=== PATIENT | female | born 1955 | race Caucasian/White ===

== ENCOUNTER → 2016-03-14 | Outpatient (CLI) | payer OTHER ==
[~2016-03-14] MED LIST: ALBU1AER9 INH; ALPR1TAB3 PO; ANT25 PO; ARFO15NE NEB; ATOR-24 PO; BENZ100C84 PO; CARV6.25 PO; CHOL100010 PO; CYCL10TA6 PO; DOXY100C76 PO; EFF75 PO; EFFSR150 PO; FLX10 PO; GABA-113 PO; IPRASOL34 INH; IPRASOL4 INH; LSX/40 PO; MCRK20 PO; MRPSR/15 PO; OXGN; PANT40TA PO; POTA20TA16 PO; PRED10TA PO; SNG10 PO; SPIR25TA PO; SYMIN/8045 INH; SYMIN160 INH; TRAM-10 PO; VNTHFA/IN INH; WARF-246 PO
[2016-03-14 12:33] LABS: BLOOD UREA NITROGEN 13 mg/dl (7-18); BUN/CREATININE RATIO 16.4 (10-20); CALCIUM 9.2 mg/dl (8.5-10.1); CARBON DIOXIDE 32 mmol/L (21-32); CHLORIDE 100 mmol/L (98-107); CREATININE 0.81 mg/dl (0.60-1.20); GLUCOSE 102 mg/dl (70-99); POTASSIUM 4.1 mmol/L (3.5-5.1); SODIUM 139 mmol/L (136-145)
== END | disposition home or self-care (01) ==
LOC: C.LABPVFM 08:59
PROVIDERS: ATTEND Family Medicine
DX: F32.9 Major depressive disorder, single episode, unspecified (principal); I10 Essential (primary) hypertension; M54.9 Dorsalgia, unspecified; E55.9 Vitamin D deficiency, unspecified

== ENCOUNTER → 2016-04-05 | Outpatient (CLI) | payer OTHER ==
[~2016-04-05] MED LIST changes: -CYCL10TA6 PO; -EFFSR150 PO; -IPRASOL4 INH; -POTA20TA16 PO; -SNG10 PO; -SYMIN160 INH; -VNTHFA/IN INH
== END ==
LOC: C.PAIN 12:24

== ENCOUNTER → 2016-08-19 | Outpatient (CLI) | payer OTHER ==
[~2016-08-19] MED LIST changes: +CYCL10TA6 PO; +EFFSR150 PO; +IPRASOL4 INH; +POTA20TA16 PO; +SNG10 PO; +SYMIN160 INH; +VNTHFA/IN INH
== END ==
LOC: C.PAIN 08:58

== ENCOUNTER → 2016-09-09 | Outpatient (CLI) | payer OTHER ==
[~2016-09-09] MED LIST changes: -CYCL10TA6 PO; -EFFSR150 PO; -IPRASOL4 INH; -POTA20TA16 PO; -SNG10 PO; -SYMIN160 INH; -VNTHFA/IN INH
== END ==
LOC: C.PAIN 12:47

== ENCOUNTER → 2016-11-28 | Outpatient (CLI) | payer OTHER ==
[~2016-11-28] MED LIST changes: -PRED10TA PO; -WARF-246 PO
== END | disposition home or self-care (01) ==
LOC: C.LABPVFM 08:43
PROVIDERS: ATTEND Nurse Practitioner
DX: E78.00 Pure hypercholesterolemia, unspecified (principal); E55.9 Vitamin D deficiency, unspecified

== ENCOUNTER → 2017-02-03 | Outpatient (CLI) | payer OTHER ==
[~2017-02-03] MED LIST changes: -ALBU1AER9 INH; -BENZ100C84 PO; -CARV6.25 PO; +CYCL10TA6 PO; -DOXY100C76 PO; -EFF75 PO; +EFFSR150 PO; -FLX10 PO; -IPRASOL34 INH; +IPRASOL4 INH; -MCRK20 PO; +POTA20TA16 PO; +SNG10 PO; -SYMIN/8045 INH; +SYMIN160 INH; +VNTHFA/IN INH
== END | disposition home or self-care (01) ==
LOC: C.MAMM 09:42
PROVIDERS: ATTEND Nurse Practitioner
DX: Z00.01 Encounter for general adult medical examination with abnormal findings (principal); M85.839 Other specified disorders of bone density and structure, unspecified forearm

== ENCOUNTER → 2017-02-03 | Outpatient (CLI) | payer OTHER ==
--- NOTE | 2017-02-06 07:49 | MAMMOGRAPHY REPORT ---
BILATERAL DIGITAL SCREENING MAMMOGRAM WITH CAD: 02/03/2017 CLINICAL HISTORY: Routine screening. Patient has no complaints. TECHNIQUE: Bilateral CC, MLO and left cleavage views were obtained. Current study was also evaluate d with a Computer Aided Detection (CAD) system. COMPARISON: Comparison is made to exams dated: 05/05/2015 mammogram, 05/05/2015 stereotactic biopsy, ultrasound, 04/24/2015 mammogram, and 04/17/2015 mammogram - [facility]. BREAST COMPOSITION: There are scattered areas of fibroglandular density in both breasts. FINDINGS: There is a stable dumbbell shaped biopsy marker with in a focal asymmetry with associated c alcification in the upper inner middle one third of the left breast. The asymmetry is unchanged in s ize and appearance comparing to the 04/17/2015 mammograms, and this represents the area of prior ster eotactic biopsy which yielded benign pathology. No new suspicious mass, architectural distortion or cluster of microcalcifications is seen. IMPRESSION: ACR BI-RADS CATEGORY 1: NEGATIVE There is no mammographic evidence of malignancy. A 1 year screening mammogram is recommended. The pa tient will receive written notification of the results. Approximately 10% of breast cancers are not detected with mammography. A negative mammographic report should not delay biopsy if a clinically suggestive mass is present. Yisel Pennington M.D. ay/:02/04/2017 07:10:58 Auto Phone Installer: Carole IYER)(Milana), [facility] letter sent: Normal 1/2 BI-RADS Code: ACR BI-RADS Category 1: Negative
== END | disposition home or self-care (01) ==
LOC: C.MAMM 09:42
PROVIDERS: ATTEND Nurse Practitioner
DX: Z12.31 Encounter for screening mammogram for malignant neoplasm of breast (principal)

== ENCOUNTER 2019-09-06 09:07 | Observation (INO) ==
--- NOTE | 2019-08-27 16:06 | PAT Medication Instructions ---
Medication Instructions Date of Service August 27, 2019 Home Medications Medication Instructions Recorded albuterol sulfate 90 mcg/actuation 2 puff INHALATION Q6H PRN #18 gm 08/13/18 aerosol inhaler cyclobenzaprine 10 mg tablet See Rx Instructions .ROUTE 02/04/19 .COMPLEX #90 tablet spironolactone 25 mg tablet See Rx Instructions .ROUTE 02/04/19 .COMPLEX #30 tablet venlafaxine 150 mg See Rx Instructions .ROUTE 02/04/19 capsule,extended release 24 hr .COMPLEX #30 capsule gabapentin 300 mg capsule See Rx Instructions .ROUTE 03/08/19 .COMPLEX #180 capsule montelukast 10 mg tablet 10 mg PO QPM #90 tab 04/04/19 diclofenac sodium 1 % topical gel 2 g TOPICAL QID PRN #300 gm 04/15/19 celecoxib 200 mg capsule See Rx Instructions .ROUTE 04/18/19 .COMPLEX #60 cap carvedilol 6.25 mg tablet 6.25 mg PO BID #60 tab 05/02/19 buspirone 10 mg tablet See Rx Instructions .ROUTE 05/16/19 .COMPLEX #60 tablet hydrocodone 5 mg-acetaminophen 325 1 tab PO Q8H PRN #30 tab 08/06/19 mg tablet tramadol 50 mg tablet 50 - 100 mg PO HS #60 tab 08/26/19 albuterol sulfate 90 mcg/actuation aerosol inhaler 2 puff INHALATION Q6H PRN budesonide-formoterol HFA 160 mcg-4.5 mcg/actuation aerosol inhaler 2 puff INHALATION BID ipratropium 0.5 mg-albuterol 3 mg (2.5 mg base)/3 mL nebulization soln 3 ml INHALATION QID PRN meclizine 25 mg tablet 25 mg PO TID PRN cyclobenzaprine 10 mg tablet See Rx Instructions .ROUTE .COMPLEX spironolactone 25 mg tablet See Rx Instructions .ROUTE .COMPLEX venlafaxine 150 mg capsule,extended release 24 hr See Rx Instructions .ROUTE .COMPLEX gabapentin 300 mg capsule See Rx Instructions .ROUTE .COMPLEX montelukast 10 mg tablet 10 mg PO QPM diclofenac sodium 1 % topical gel 2 g TOPICAL QID PRN celecoxib 200 mg capsule See Rx Instructions .ROUTE .COMPLEX carvedilol 6.25 mg tablet 6.25 mg PO BID buspirone 10 mg tablet See Rx Instructions .ROUTE .COMPLEX hydrocodone 5 mg-acetaminophen 325 mg tablet 1 tab PO Q8H PRN atorvastatin 40 mg PO HS cholecalciferol (vitamin D3) 4,000 units PO QAM furosemide 60 mg PO QAM lisinopril 10 mg PO QAM mirtazapine 30 mg PO HS pantoprazole [Protonix] 40 mg PO QAM potassium chloride [Klor-Con M20] 20 meq PO QAM tramadol 50 mg tablet 50 - 100 mg PO HS ASK your surgeon for instructions celecoxib 200 mg capsule See Rx Instructions .ROUTE .COMPLEX STOP taking 24 hours before surgery diclofenac sodium 1 % topical gel 2 g TOPICAL QID PRN DO NOT take the morning of surgery cyclobenzaprine 10 mg tablet See Rx Instructions .ROUTE .COMPLEX spironolactone 25 mg tablet See Rx Instructions .ROUTE .COMPLEX cholecalciferol (vitamin D3) 4,000 units PO QAM furosemide 60 mg PO QAM lisinopril 10 mg PO QAM potassium chloride [Klor-Con M20] 20 meq PO QAM Take morning of surgery With a small sip of water, OTHERWISE NOTHING TO EAT OR DRINK AFTER MIDNIGHT: albuterol sulfate 90 mcg/actuation aerosol inhaler 2 puff INHALATION Q6H PRN (use if needed; please bring with you to hospital day of surgery if possible) budesonide-formoterol HFA 160 mcg-4.5 mcg/actuation aerosol inhaler 2 puff INHALATION BID ipratropium 0.5 mg-albuterol 3 mg (2.5 mg base)/3 mL nebulization soln 3 ml INHALATION QID PRN (if needed) meclizine 25 mg tablet 25 mg PO TID PRN (if needed) venlafaxine 150 mg capsule,extended release 24 hr See Rx Instructions .ROUTE .COMPLEX gabapentin 300 mg capsule See Rx Instructions .ROUTE .COMPLEX carvedilol 6.25 mg tablet 6.25 mg PO BID buspirone 10 mg tablet See Rx Instructions .ROUTE .COMPLEX (if needed) hydrocodone 5 mg-acetaminophen 325 mg tablet 1 tab PO Q8H PRN (okay to take up to 4 hours prior to surgery if needed) pantoprazole [Protonix] 40 mg PO QAM Take evening before surgery albuterol sulfate 90 mcg/actuation aerosol inhaler 2 puff INHALATION Q6H PRN (if needed) budesonide-formoterol HFA 160 mcg-4.5 mcg/actuation aerosol inhaler 2 puff INHALATION BID ipratropium 0.5 mg-albuterol 3 mg (2.5 mg base)/3 mL nebulization soln 3 ml INHALATION QID PRN (if needed) meclizine 25 mg tablet 25 mg PO TID PRN (if needed) cyclobenzaprine 10 mg tablet See Rx Instructions .ROUTE .COMPLEX (if needed) gabapentin 300 mg capsule See Rx Instructions .ROUTE .COMPLEX montelukast 10 mg tablet 10 mg PO QPM carvedilol 6.25 mg tablet 6.25 mg PO BID buspirone 10 mg tablet See Rx Instructions .ROUTE .COMPLEX (if needed) hydrocodone 5 mg-acetaminophen 325 mg tablet 1 tab PO Q8H PRN (if needed) atorvastatin 40 mg PO HS mirtazapine 30 mg PO HS tramadol 50 mg tablet 50 - 100 mg PO HS Other Notes If you have any questions please call us at [phone] or [phone] or [phone] or [phone]
[2019-08-28 13:32] LABS: Basophils # (auto) 0.03 K/uL (0-0.2); Basophils % (auto) 0.4 %; Eosinophils % (auto) 1.4 %; Hematocrit (blood only) 44.1 % (37-47); Hemoglobin 14.2 g/dL (12.0-16.0); Immature Granulocytes # (auto) 0.01 K/uL (0.00-0.02); Immature Granulocytes % (auto) 0.1 %; Lymphocytes % (auto) 21.6 %; Mean Corpuscular Hemoglobin 31.3 pg (25-34); Mean Corpuscular Hgb Conc 32.2 g/dL (32-36); Mean Corpuscular Volume 97.4 fL (80-100); Mean Platelet Volume 10.2 fL (7.4-10.4); Monocytes # (auto) 0.56 K/uL (0.11-0.59); Monocytes % (auto) 8.1 %; Neutrophils # (auto) 4.74 K/uL (1.4-6.5); Neutrophils % (auto) 68.4 %; Platelet Count 261 K/uL (130-400); RDW Coefficient of Variation 12.6 % (11.5-14.5); RDW Standard Deviation 44.7 fL (36.4-46.3); Red Blood Count 4.53 M/uL (4.2-5.4); White Blood Count 6.94 K/uL (4.8-10.8)
--- NOTE | 2019-08-28 13:44 | Anesthesiology Consultation ---
Date of Service August 28, 2019 Assessment & Plan (1) Encounter for pre-operative examination: Chart Review Chart Review: Acceptable Risk for Surgery (pending Covid testing) and Patient seen in Pre Admission Testing *Per PAT appt on 08/28/19, no known travel to endemic areas. Pt aware of Covid testing three days prior to surgery. Eduated importance of self quarantining, social distancings and wearing a mask if needs to go out in public for both pat ient and household members Left PATTIE 12/19/17= Done under GA- grade 1 view with MAC #3. ETT 7.5. Seen by pulm 08/21/19= aware of upcoming hip surgery. Breathing stable at time of appt. Teaching & Discussion Pre-Anesthesia Teaching/Discussion Notes: Instructed NPO after midnight before surgery,except medications with 15 cc of water. Medication instructions provided according to the PAT guidelines. History Surgery Operation Date: 09/06/19 10:40 Proposed Procedures p Right Lateral Total Hip Arthroplasty - Oscar Leon, Height/Weight Height: 5 ft 2.25 in Weight: 127.2 kg Allergies Allergy/AdvReac Type Severity Reaction Status Date / Time amoxicillin Allergy Mild RASH Verified 08/28/19 11:53 rofecoxib Allergy Unknown Unknown Verified 08/28/19 11:53 aspirin AdvReac Unknown PER Verified 08/28/19 11:53 PATIENT, LISTED B/C SHE HAS ASTHMA-CAN USE W/O ISSUES NO simvastatin AdvReac Unknown Muscle Pain Verified 08/28/19 11:53 Medications Home Medications Medication Instructions Recorded Confirmed Last Taken albuterol sulfate 90 mcg/actuation 2 puff INHALATION Q6H PRN #18 gm 08/13/18 08/28/19 Unknown aerosol inhaler budesonide-formoterol HFA 160 2 puff INHALATION BID 08/13/18 08/28/19 Unknown mcg-4.5 mcg/actuation aerosol inhaler ipratropium 0.5 mg-albuterol 3 mg 3 ml INHALATION QID PRN #2 ml 08/13/18 08/28/19 Unknown (2.5 mg base)/3 mL nebulization soln meclizine 25 mg tablet 25 mg PO TID PRN tab 08/13/18 08/28/19 Unknown cyclobenzaprine 10 mg tablet See Rx Instructions .ROUTE 02/04/19 08/28/19 Unknown .COMPLEX #90 tablet spironolactone 25 mg tablet See Rx Instructions .ROUTE 02/04/19 08/28/19 Unknown .COMPLEX #30 tablet venlafaxine 150 mg See Rx Instructions .ROUTE 02/04/19 08/28/19 Unknown capsule,extended release 24 hr .COMPLEX #30 capsule Oxygen Home #1 ea 02/20/19 08/28/19 Unknown gabapentin 300 mg capsule See Rx Instructions .ROUTE 03/08/19 08/28/19 Unknown .COMPLEX #180 capsule montelukast 10 mg tablet 10 mg PO QPM #90 tab 04/04/19 08/28/19 Unknown diclofenac sodium 1 % topical gel 2 g TOPICAL QID PRN #300 gm 04/15/19 08/28/19 Unknown celecoxib 200 mg capsule See Rx Instructions .ROUTE 04/18/19 08/28/19 Unknown .COMPLEX #60 cap carvedilol 6.25 mg tablet 6.25 mg PO BID #60 tab 05/02/19 08/28/19 Unknown buspirone 10 mg tablet See Rx Instructions .ROUTE 05/16/19 08/28/19 Unknown .COMPLEX #60 tablet hydrocodone 5 mg-acetaminophen 325 1 tab PO Q8H PRN #30 tab 08/06/19 08/28/19 Unknown mg tablet atorvastatin 40 mg PO HS 08/21/19 08/28/19 Unknown cholecalciferol (vitamin D3) 4,000 units PO QAM 08/21/19 08/28/19 Unknown furosemide 60 mg PO QAM 08/21/19 08/28/19 Unknown lisinopril 10 mg PO QAM 08/21/19 08/28/19 Unknown mirtazapine 30 mg PO HS 08/21/19 08/28/19 Unknown pantoprazole [Protonix] 40 mg PO QAM 08/21/19 08/28/19 Unknown potassium chloride [Klor-Con M20] 20 meq PO QAM 08/21/19 08/28/19 Unknown tramadol 50 mg tablet 50 - 100 mg PO HS #60 tab 08/26/19 08/28/19 Unknown Past Medical History Medical History (Updated 08/29/19 @ 11:08 by Karolyn Mccollum PA-C) Asthma STABLE Chronic obstructive pulmonary disease STABLE; ON O2 2L PRN ACTIVITY*-F/U DR CELIA JACOBS Congestive heart failure REMOTE-HX- STABLE AND CONTROLLED Depression GERD (gastroesophageal reflux disease) CONTROLLED Hiatal hernia Hypercholesteremia Hypertension Migraine HX Morbid obesity Pulmonary embolism ~2012- on AC x 1 year - then d/'edwardo - no issues since Sleep apnea CPAP, stopped 2017, couldn't war mask d/t anxiety SOBOE (shortness of breath on exertion) CHRONIC/MILD AND STABLE Exercise / Class Metabolic Activity III < 4 Walking/Shop/Light housework (ONE FLIGHT STAIRS- SOB BUT NO CHEST PAIN ) Past Family History Family History Father Prostate cancer Myocardial infarction Diabetes Mother Myocardial infarction Family/Other Heart disease Hypertension Other Family history non-contributory Denies family history of Ovarian cancer Breast cancer Colorectal cancer Past Surgical History Surgical History (Updated 08/29/19 @ 11:10 by Karolyn Mccollum PA-C) H/O foot surgery History of bilateral carpal tunnel release History of esophagogastroduodenoscopy (EGD) History of tonsillectomy and adenoidectomy History of total left hip replacement (~2017) Previous back surgery S/P insertion of spinal cord stimulator 2/2 LBP/RADICULOPATHY; PATIENT ADVISED TO BRING REMOTE AM DOS (OR NOTIFIED) Status post correction of deviated nasal septum Status post insertion of spinal cord stimulator Past Anesthesia History No Hx of Anesthesia Complications and No Family Hx of Anesthesia Complications History of PONV No Hx of Motion Sickness and History of PONV (ONE EPISODE AFTER SPINAL CORD STIMULATOR ) Social History Smoking Status: Never smoker Do You Dip or Chew Tobacco: No Hx Alcohol Use: Yes Alcohol type: beer alcohol intake frequency: holidays/special occasions only Hx Substance Use: No Review of Systems Possible blood transfusion after last hip replacement Patient denies chest pain, shortness of breath, cough, wheezing, palpitations. No hx of seizures, stroke, RI. Physical Exam Vital Signs VITALS BP 112/62 P 64 TEMP 98.5 SP02 94% RESP 16 Constitutional + morbidly obese; no acute distress ENMT Mouth: no TMJ clicking Thyromental Distance: > or= 3.5 Finger Breadths (3.5) Mallampati Class: II Missing molars Neck + short neck, + thick neck and + limited neck extension (mild ) Respiratory normal respiratory effort; no respiratory distress Auscultation: lungs clear to auscultation bilaterally; no wheezes Cardiovascular Rate/Rhythm: regular rate and regular rhythm Heart Sounds: no murmur Vessels: no carotid bruit Musculoskeletal Spine: no pain with cervical ROM Neurologic moves all extremities Psychiatric Orientation: alert Testing Laboratory Results 08/28/19 13:17 08/28/19 13:17 PT 10.2 Seconds (9.0-12.0) 08/28/19 13:17 INR 1.0 (0.9-1.1) 08/28/19 13:17 APTT 25.8 Seconds (21.0-31.0) 08/28/19 13:17 Blood Type A Positive 08/28/19 13:17 Antibody Screen NEGATIVE 08/28/19 13:17 Electrocardiogram Date: 01/07/19 Findings: + SB @ (59) Chest X-Ray Date: 08/28/19 Findings: + NAD and + cardiomegaly (mild/stable) Echocardiogram Date: 09/17/15 LVEF 60%. LVD with mild cLVH. No RWMA. Grade 1 Diastolic dysfunction. No significant valvular disease. RVSP elevated 30-40mmhg.
[2019-08-28 13:49] LABS: Partial Thromboplastin Ratio 0.9; Partial Thromboplastin Time 25.8 Seconds (21.0-31.0); Prothrombin Time 10.2 Seconds (9.0-12.0)
--- NOTE | 2019-08-28 14:15 | XRay Report ---
XR chest Pre-admission PA/Lat CLINICAL HISTORY: pat preoperative evaluation COMPARISON STUDY: 01/19/2017 FINDINGS: Mild stable cardiomegaly. Mild stimulator in the low thoracic region unchanged in location. Lungs are considered clear. There are no focal infiltrative changes. IMPRESSION: No acute process. ACT 112: Negative or not required by law. The above report was generated using voice recognition software. It may contain grammatical, syntax or spelling errors. Electronically signed by: Julian Veliz M.D. 08/28/2019 2:14 PM
[2019-08-28 15:59] LABS: BUN Creatinine Ratio 18.3 (10-20); Creatinine Clr Calc Pharmacy 85.6 ml/min; Est GFR (African American) 85.2; Est GFR (Non-African American) 73.5; Potassium 4.1 mmol/L (3.5-5.1)
--- NOTE | 2019-09-05 06:52 | History & Physical Report ---
Date of Service September 05, 2019 Assessment & Plan (1) History of total left hip replacement: We will proceed with a right total hip arthroplasty. Postoperatively she will be kept overnight in the hospital for postoperative medical management. She plans to use energy physical therapy upon discharge. During her last stay she required a discharge to [facility] rehab. We will see how she does. Oralia is a high risk for joint replacement surgery. Her BMI is 50.9 which is a major comorbidity. Present on Admission?: Yes History of Present Illness Chief Complaint: Primary osteoarthritis of the right hip Primary Care Provider: SARAH Moulton Oralia is a pleasant 64-year-old female who is been dealing with debilitating bilateral hip pain. I did a left total hip arthroplasty on her 2 years ago and she did very well with that. Unfortunately she is having a lot of right hip pain. X-rays and clinical examination have been diagnostic for advancing osteoarthritis of the right hip. After failing extensive conservative treatment, she has elected to proceed with a right total hip arthroplasty. Allergies Allergy/AdvReac Type Severity Reaction Status Date / Time amoxicillin Allergy Mild RASH Verified 08/28/19 11:53 rofecoxib Allergy Unknown Unknown Verified 08/28/19 11:53 aspirin AdvReac Unknown PER Verified 08/28/19 11:53 PATIENT, LISTED B/C SHE HAS ASTHMA-CAN USE W/O ISSUES NO simvastatin AdvReac Unknown Muscle Pain Verified 08/28/19 11:53 Home Medications Home Medications Medication Instructions Recorded Confirmed Type albuterol sulfate 90 mcg/actuation 2 puff INHALATION Q6H PRN #18 gm 08/13/18 08/28/19 Rx aerosol inhaler budesonide-formoterol HFA 160 2 puff INHALATION BID 08/13/18 08/28/19 History mcg-4.5 mcg/actuation aerosol inhaler ipratropium 0.5 mg-albuterol 3 mg 3 ml INHALATION QID PRN #2 ml 08/13/18 08/28/19 History (2.5 mg base)/3 mL nebulization soln meclizine 25 mg tablet 25 mg PO TID PRN tab 08/13/18 08/28/19 History cyclobenzaprine 10 mg tablet See Rx Instructions .ROUTE 02/04/19 08/28/19 Rx .COMPLEX #90 tablet spironolactone 25 mg tablet See Rx Instructions .ROUTE 02/04/19 08/28/19 Rx .COMPLEX #30 tablet venlafaxine 150 mg See Rx Instructions .ROUTE 02/04/19 08/28/19 Rx capsule,extended release 24 hr .COMPLEX #30 capsule Oxygen Home #1 ea 02/20/19 08/28/19 History gabapentin 300 mg capsule See Rx Instructions .ROUTE 03/08/19 08/28/19 Rx .COMPLEX #180 capsule montelukast 10 mg tablet 10 mg PO QPM #90 tab 04/04/19 08/28/19 Rx diclofenac sodium 1 % topical gel 2 g TOPICAL QID PRN #300 gm 04/15/19 08/28/19 Rx celecoxib 200 mg capsule See Rx Instructions .ROUTE 04/18/19 08/28/19 Rx .COMPLEX #60 cap carvedilol 6.25 mg tablet 6.25 mg PO BID #60 tab 05/02/19 08/28/19 Rx buspirone 10 mg tablet See Rx Instructions .ROUTE 05/16/19 08/28/19 Rx .COMPLEX #60 tablet hydrocodone 5 mg-acetaminophen 325 1 tab PO Q8H PRN #30 tab 08/06/19 08/28/19 Rx mg tablet atorvastatin 40 mg PO HS 08/21/19 08/28/19 History cholecalciferol (vitamin D3) 4,000 units PO QAM 08/21/19 08/28/19 History furosemide 60 mg PO QAM 08/21/19 08/28/19 History mirtazapine 30 mg PO HS 08/21/19 08/28/19 History pantoprazole [Protonix] 40 mg PO QAM 08/21/19 08/28/19 History potassium chloride [Klor-Con M20] 20 meq PO QAM 08/21/19 08/28/19 History tramadol 50 mg tablet 50 - 100 mg PO HS #60 tab 08/26/19 08/28/19 Rx lisinopril 20 mg tablet 20 mg PO DAILY #30 tab 09/02/19 09/02/19 Rx Past Med/Surg History Medical History Asthma STABLE Chronic obstructive pulmonary disease STABLE; ON O2 2L PRN ACTIVITY*-F/U DR CELIA JACOBS Congestive heart failure REMOTE-HX- STABLE AND CONTROLLED Depression GERD (gastroesophageal reflux disease) CONTROLLED Hiatal hernia Hypercholesteremia Hypertension Migraine HX Morbid obesity Pulmonary embolism ~2012- on AC x 1 year - then d/'edwardo - no issues since Sleep apnea CPAP, stopped 2017, couldn't war mask d/t anxiety SOBOE (shortness of breath on exertion) CHRONIC/MILD AND STABLE Surgical History H/O foot surgery History of bilateral carpal tunnel release History of esophagogastroduodenoscopy (EGD) History of tonsillectomy and adenoidectomy History of total left hip replacement (~2017) Previous back surgery S/P insertion of spinal cord stimulator 2/2 LBP/RADICULOPATHY; PATIENT ADVISED TO BRING REMOTE AM DOS (OR NOTIFIED) Status post correction of deviated nasal septum Status post insertion of spinal cord stimulator Family History Father Prostate cancer Myocardial infarction Diabetes Mother Myocardial infarction Family/Other Heart disease Hypertension Other Family history non-contributory Denies family history of Ovarian cancer Breast cancer Colorectal cancer Social History Preferred Language: Upper Sorbian Communication Ability: Effective Visual Impairment: No Limitations Hearing Ability: Normal 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 Required: No Beliefs That Will Affect Care: None marital status: Current Living Situation: Spouse current occupational status: disabled Feels Safe at Home: Yes Smoking Status: Never smoker Second Hand Exposure: Yes (FATHER SMOKED/SPOUSE SMOKES OUTSIDE) ; Hx Alcohol Use: Yes Alcohol type: beer Alcohol Intake Frequency: Rarely Hx Substance Use: No Dental Care, Regularly: No Seatbelt Use: always Sunscreen Use: Yes Review of Systems Review of Systems: All systems reviewed & are unremarkable except as noted in HPI & below Physical Exam Constitutional: WD/WN, vitals as above Eyes: PERRL, conjunctivae normal, anicteric sclerae ENMT: external ear and nose normal, oropharynx normal Neck: trachea midline, no thyromegaly Respiratory: normal respiratory effort Cardiovascular: RRR, no murmur, no edema Gastrointestinal (Abdomen): normal bowel sounds, soft, nontender, no hepatosplenomegaly Musculoskeletal: Physical examination of the right hip reveals decreased range of motion with flexion, internal and external rotation. There is significant groin pain with forced internal rotation of the hip his leg lengths are essentially equal. Psychiatric: A+Ox3, euthymic affect Results & Data Results & Data ([facility]) Diagnostic Findings Radiographs of the right hip and pelvis demonstrate advanced osteoarthritis with joint space narrowing osteophyte formation and [id number] articulation. PG Care Time/CCT Total # of Minutes Spent Total Time Spent with Patient: Total time spent is greater than 50% in coordination of care (as documented) at patient's floor/unit and/or counseling patient: Coding Level of Care Code 10943 Initial Inpt Care Lvl 3 Diagnoses History of total left hip replacement Z96.642
[~2019-09-06 09:07] MED LIST changes: +ACETAMINOPHEN 500 MG TAB PO SCH; -ALPR1TAB3 PO; -ANT25 PO; -ARFO15NE NEB; -ATOR-24 PO; +BUPIVACAINE 0.5 % 5 MG/1 ML PF 10ML VIAL ONE; +CEFAZOLIN 3000MG 72.5 ML IV SCH; -CHOL100010 PO; -CYCL10TA6 PO; -EFFSR150 PO; +EPINEPHrine INJ 1 MG/ML AMP ONE; +FAMOTIDINE 20 MG TAB PO SCH; -GABA-113 PO; +GABAPENTIN 300 MG CAP PO SCH; -IPRASOL4 INH; +LR 15ML/HR IV SCH; +LR 60ML/HR IV SCH; -LSX/40 PO; +MIDAZOLAM HCL 1 MG/ML 2ML VIAL ONE; -MRPSR/15 PO; +ONDANSETRON INJ 2 MG/ML 2 ML VIAL ONE; -OXGN; -PANT40TA PO; -POTA20TA16 PO; +PROPOFOL IV EMULSION 10 MG/ML 20 ML VIAL IV ONE; +ROCURONIUM BROMIDE 10 MG/ML 5 ML VIAL ONE; +ROPIVACAINE 0.5% HCL/PF 150 MG, BUPIVACAINE 0.5% MPF 30 ML, EPINEPHrine 30MG/30ML (OR U... INFIL SCH; -SNG10 PO; -SPIR25TA PO; +SUCCINYLCHOLINE CHLORIDE 20 MG/ML 10 ML VIAL ONE; -SYMIN160 INH; -TRAM-10 PO; +TRANEXAMIC ACID 1,000 MG **IV Intra-op IV SCH; +TRANEXAMIC ACID 1,000 MG **IV Pre-op IV SCH; +VASOPRESSIN 20 UNIT/ML VIAL ONE; -VNTHFA/IN INH; +dexAMETHasone 4 MG TAB PO SCH; +fentaNYL citrate 100 MCG/2 ML VIAL ONE
--- NOTE | 2019-09-06 10:02 | History & Physical Bridge Note ---
Date of Service September 06, 2019 History & Physical Bridge Note I have examined the patient, reviewed the History & Physical and in the interval since the performance of the History & Physical I have noted the following changes of clinical significance: no changes noted
[2019-09-06] MEDS ORDERED: ORTHO JOINT ANESTHETIC ONE (10:31)
[2019-09-06] MEDS ORDERED: DEXAMETHASONE SOD INJ 4 MG/ML VIAL ONE (10:43)
[2019-09-06] MEDS ORDERED: PROPOFOL IV EMULSION 10 MG/ML 20 ML VIAL IV ONE (10:43)
[2019-09-06] MEDS ORDERED: GLYCOPYRROLATE 0.2 MG/ML VIAL ONE (10:43)
[2019-09-06] MEDS ORDERED: NEOSTIGMINE METHYLSULFATE 5 MG/5 ML SYR ONE (10:43)
[2019-09-06] MEDS ORDERED: ROCURONIUM BROMIDE 10 MG/ML 5 ML VIAL IV ONE (10:43)
[2019-09-06] MEDS ORDERED: ONDANSETRON INJ 2 MG/ML 2 ML VIAL ONE (10:43)
[2019-09-06] MEDS ORDERED: LIDOCAINE HCL 2% 2 ML VIAL/AMP(20MG/ML) INFIL ONE (10:43)
[2019-09-06] MEDS ORDERED: HYDROmorphone INJ 2 MG/ML SYR/VIAL ONE (10:44)
[2019-09-06] MEDS ORDERED: MIDAZOLAM HCL 1 MG/ML 2ML VIAL ONE (10:44)
[2019-09-06] MEDS ORDERED: HYDROmorphone INJ 1 MG/ML SYRINGE IV PRN (10:45)
[2019-09-06] MEDS ORDERED: ATROPINE SULFATE 0.1 MG/ML 10ML SYR IV PRN (10:45)
[2019-09-06] MEDS ORDERED: LABETALOL HCL IV 5 MG/ML 20ML IV PRN (10:45)
[2019-09-06] MEDS ORDERED: fentaNYL citrate 100 MCG/2 ML VIAL IV PRN (10:45)
[2019-09-06] MEDS ORDERED: MEPERIDINE HCL 25 MG/ML CARP/VIAL IV PRN (10:45)
[2019-09-06] MEDS ORDERED: PHENYLEPHRINE 100MCG/ML 5ML SYR IV PRN (10:45)
[2019-09-06] MEDS ORDERED: ePHEDrine sulfate 50 MG/ML AMP IV PRN (10:45)
[2019-09-06] MEDS ORDERED: ONDANSETRON INJ 2 MG/ML 2 ML VIAL IV PRN ×2 (10:45→16:09)
[2019-09-06] MEDS ORDERED: LABETALOL HCL IV 5 MG/ML 20ML IV ONE (12:04)
--- NOTE | 2019-09-06 13:27 | XRay Report ---
XR hip RT 1V CLINICAL HISTORY: Right hip arthroplasty COMPARISON: None. DISCUSSION: A single intraoperative fluoroscopic spot film reveals postsurgical changes of a total ri ght hip arthroplasty. There is no dislocation. There is gas present within the soft tissues consisten t with surgery. The study was performed for evaluation of stent in size. IMPRESSION: Intraoperative radiograph of a right hip arthroplasty obtained for stem size. ACT 112: Negative or not required by law. Electronically signed by: Tristan Smallwood M.D. 09/06/2019 1:26 PM
--- NOTE | 2019-09-06 13:50 | Operative Report ---
PG Post Operative Report Pre & Post Diagnosis Operation Date: 09/06/19 11:30 Pre-Op Diagnosis: Right Hip Degenerative Joint Disease Post-Op Diagnosis: Right Hip Degenerative Joint Disease I identified the patient and participated in the time-out.: Yes Procedure Operation Date: 09/06/19 11:30 Actual Procedures p Right Lateral Total Hip Arthroplasty(Right) - Oscar Leon DO Surgeon Oscar Leon DO Political Organizer Oscar So PAC Estimated Blood Loss 300 Findings Consistent with Post-Op Diagnosis Specimens Right femoral head Complications none Disposition Disposition: Recovery Room Indications Oralia is a pleasant 64-year-old female who is been doing chronic increasing right hip and groin pain. X-rays and clinical examination were diagnostic for advanced osteoarthritis of the right hip. After failing conservative treatment, she elected proceed with a right lateral total hip arthroplasty. Description of Procedure Implants used: I used a [employer] [place] total hip arthroplasty system with a size 13 standard offset micro-stem, a 50 mm G7 cup, a dual mobility cup with a 28 mm head and a 40 mm dual mobility lining. I used a 0 neck. On September 06, 2019 Oralia arrived at [facility] for the above procedure. She was seen in the preoperative holding area and the operative extremity was identified and signed. She is given a preoperative antibiotic. She was taken back to the operating room and laid on the table in supine position. She was put under general anesthesia. She is then put into the lateral decubitus position. The right hip was prepped and draped in sterile fashion. A timeout was done. The patient and the operative extremity was properly identified. A lateral approach was used. Dissection was taken down through the fat layer and the IT band was exposed. The IT band was then split. The abductors were then exposed. The anterior two thirds of the abductors were then tenotomized off the greater trochanter. The capsule was then excised. The hip was then dislocated. The femoral neck was resected and the femoral head was removed. The acetabulum was exposed. Time was spent doing a complete circumferential capsular labral release. Sequential reaming of the acetabulum was done up to a size 49 reamer. A size 50 G7 cup was then impacted into place. A single screw was placed. A metal shelf for the dual mobility cup was then impacted into place. Surrounding soft tissues were then injected with 100 cc of an orthopedic pain control cocktail. The proximal femur was then exposed. Sequential broaching up to a size 13 broach was done. A standard neck was placed as well as a dual mobility head. The hip was then reduced. A single flat plate radiograph was taken and I was happy with the size of the competence in the alignment of the hip. The hip was then dislocated. The broach was removed and the final size 13 standard offset micro-stem was impacted into place. A 28 mm ceramic head with a 0 neck was then impacted into place. A 40 mm mobile-bearing liner was then snapped on. The hip was then reduced. The hip was brought through full range of motion and felt to be stable. The wound was then irrigated. The abductors were then tenodesed back to the greater trochanter with transosseous FiberWire sutures and side to side sutures. A 3-minute Betadine lavage was then done. The fascia was then closed with #1 Vicryl. The deep fat layer was closed with 1 Vicryl. The skin was closed with 2-0 Vicryl and brad. A Amina VAC dressing was then placed. She was then extubated and transferred to a hospital bed. She was taken to the postanesthesia care unit in stable condition. She tolerated the procedure well. Oscar So PA-C, was present for the entire procedure. He was critical for patient positioning, prepping, draping, retraction exposure, wound closure and application of sterile dressing. I attest to the content of the Intraoperative Record and any orders documented therein. Any exceptions are noted below.
[2019-09-06] MEDS ORDERED: fentaNYL citrate 100 MCG/2 ML VIAL ONE (14:08)
--- NOTE | 2019-09-06 14:58 | Anesthesiology Progress Note ---
Date of Service September 06, 2019 Anesthesia Post Procedure Vital Signs Vital Signs: Temp Pulse Pulse Resp BP BP Pulse Ox 09/06/19 14:45 63 20 141/52 H 93 09/06/19 14:35 62 62 20 148/91 H 148/91 H 100 09/06/19 14:26 36.6 C 63 20 184/108 H 100 09/06/19 10:57 63 20 177/74 H 95 09/06/19 09:59 36.8 C 62 20 146/81 H 99 Pain Intensity Right Hip: Pain Intensity: 2 Transfer of Care Handoff Completed per policy Notes Mental Status: alert / awake / arousable Patient Amnestic to Procedure: Yes Nausea / Vomiting: adequately controlled Pain: adequately controlled Airway Patency, RR, SpO2: stable & adequate BP & HR: stable & adequate Hydration State: stable & adequate Anesthetic Complications: no major complications apparent and Pt Satisfied with anesthetic care Notes: The patient is awake and comfortable. Her vital signs are stable.
--- NOTE | 2019-09-06 15:43 | XRay Report ---
XR hip 1V RT w pelvis CLINICAL HISTORY: IN PACU - A/P PELVIS and LATERAL HIP COMPARISON: None. DISCUSSION: Anatomic alignment post total right hip arthroplasty. Expected postoperative soft tissue change IMPRESSION: Anatomic alignment post total right hip arthroplasty. ACT 112: Negative or not required by law. The above report was generated using voice recognition software. It may contain grammatical, syntax or spelling errors. Electronically signed by: Julian Veliz M.D. 09/06/2019 3:42 PM
[2019-09-06] MEDS ORDERED: NALOXONE HCL 0.4 MG/1 ML VIAL/CARP IV PRN (16:09)
[2019-09-06] MEDS ORDERED: HYDROmorphone INJ 0.5 MG/0.5 ML SYR IV PRN (16:09)
[2019-09-06] MEDS ORDERED: bisacodyL 10 MG SUPP PR PRN (16:09)
[2019-09-06] MEDS ORDERED: METOCLOPRAMIDE HCL INJ 5 MG/ML 2 ML VIAL IV PRN (16:09)
[2019-09-06] MEDS ORDERED: ALBUTEROL HFA 8 GM INHALER INH PRN (16:09)
[2019-09-06] MEDS ORDERED: ALBUT/IPRATROP 3MG/0.5MG NEB 3 ML VIAL INH PRN (16:09)
[2019-09-06] MEDS ORDERED: MAGNESIUM HYDROXIDE SUSP 30 ML UDC PO PRN (16:09)
[2019-09-06] MEDS ORDERED: MECLIZINE HCL 25 MG TAB PO PRN (16:46)
[2019-09-06] MEDS: SODIUM CHLORIDE 0.9% 1000ML 1,000 ML IV SCH (16:52)
[2019-09-06] MEDS: KETOROLAC TROMETHAMINE 15 MG/ML VIAL IV SCH ×2 (18:29→23:22)
[2019-09-06] MEDS: CEFAZOLIN 2000MG 2,000 MG/15 ML SYR IV SCH (21:22)
[2019-09-06] MEDS: GABAPENTIN 300 MG CAP PO SCH (21:25)
[2019-09-06] MEDS: SENNA 8.6 MG TAB PO SCH (21:25)
[2019-09-06] MEDS: MIRTAZAPINE TAB 15 MG TAB PO SCH (21:26)
[2019-09-06] MEDS: ACETAMINOPHEN 500 MG TAB PO SCH (21:26)
[2019-09-06] MEDS: MONTELUKAST SODIUM 10 MG TABLET PO SCH (21:26)
[2019-09-06] MEDS: carvediloL 6.25 MG TAB PO SCH (21:27)
[2019-09-06] MEDS: DOCUSATE SODIUM 100 MG CAP PO SCH (21:27)
[2019-09-06] MEDS: ASPIRIN 81 MG ECTAB PO SCH (21:27)
[2019-09-06] MEDS: ATORVASTATIN 40 MG TAB PO SCH (21:30)
[2019-09-07] MEDS: OXYCODONE HCL IR 5 MG TAB (IMMEDIATE RELEASE) PO PRN ×4 (03:00→21:04)
[2019-09-07] MEDS: CEFAZOLIN 2000MG 2,000 MG/15 ML SYR IV SCH (03:01)
[2019-09-07] MEDS: SODIUM CHLORIDE 0.9% 1000ML 1,000 ML IV SCH (03:10)
[2019-09-07] MEDS: KETOROLAC TROMETHAMINE 15 MG/ML VIAL IV SCH ×3 (05:45→18:35)
[2019-09-07] MEDS: ACETAMINOPHEN 500 MG TAB PO SCH ×3 (05:45→21:10)
[2019-09-07 07:23] LABS: Basophils # (auto) 0.01 K/uL (0-0.2); Basophils % (auto) 0.1 %; Hematocrit (blood only) 37.2 % (37-47); Hemoglobin 11.7 g/dL (12.0-16.0); Immature Granulocytes # (auto) 0.04 K/uL (0.00-0.02); Immature Granulocytes % (auto) 0.3 %; Lymphocytes # (auto) 1.08 K/uL (1.2-3.4); Lymphocytes % (auto) 6.9 %; Mean Corpuscular Hemoglobin 30.4 pg (25-34); Mean Corpuscular Hgb Conc 31.5 g/dL (32-36); Mean Corpuscular Volume 96.6 fL (80-100); Mean Platelet Volume 9.9 fL (7.4-10.4); Monocytes # (auto) 1.55 K/uL (0.11-0.59); Monocytes % (auto) 9.9 %; Neutrophils # (auto) 12.94 K/uL (1.4-6.5); Neutrophils % (auto) 82.8 %; Platelet Count 262 K/uL (130-400); RDW Coefficient of Variation 12.5 % (11.5-14.5); RDW Standard Deviation 43.7 fL (36.4-46.3); Red Blood Count 3.85 M/uL (4.2-5.4); White Blood Count 15.62 K/uL (4.8-10.8)
[2019-09-07] MEDS ORDERED: dexAMETHasone 4 MG TAB PO SCH (08:00)
--- NOTE | 2019-09-07 08:14 | Orthopedic Progress Note ---
Date of Service September 07, 2019 Assessment & Plan (1) History of right hip replacement: Overall she is doing very well. She is looking forward to physical therapy today for ambulation and range of motion exercises. I am going to keep her on aspirin twice a day for DVT prophylaxis. She does have a history of a pulmonary embolism in the past and was on Coumadin for that. I just continue the Coumadin she was on after her previous hip 2 years ago. Unfortunately she required 4 units of blood after the procedure. I also had problems with wound drainage after the procedure on the other hip. She has not been on any anticoagulation since and has had no other issues with blood clots. I talked to her extensively about it at bedside and we agreed that everything is a risk and benefit ratio and we felt that an aspirin twice a day would be the better option at this point. We will watch her closely for any calf tenderness or shortness of breath. She was also discharged to [facility] after her last hip was done 2 years ago. She is hoping to go home with [facility] this time. She lives with her who is able to help take care of her. We will see how she does today. Will consider discharge to home tomorrow at the earliest or possibly on Monday. Present on Admission?: Yes Subjective Oralia was seen and examined at bedside this morning. Overall she is doing very well. She is sitting up in a chair. She has very little pain in the right hip. She is very optimistic about her progress. She has no complaints. Physical Exam Musculoskeletal: On physical examination of the right hip, the Amina VAC dressing is to suction. Her leg lengths are equal. She has active dorsiflexion and plantarflexion of her right ankle. Results & Data ([facility]) Vital Signs (Past 12 Hours) Vital Signs Temp Pulse Resp BP Pulse Ox 09/07/19 03:02 36.9 C 75 16 166/84 H 98 09/06/19 22:56 36.9 C 75 16 114/70 97 09/06/19 21:25 71 115/71 Laboratory Results H & H 08/28/19 09/07/19 Range/Units 13:17 07:12 Hgb 14.2 11.7 L (12.0-16.0) g/dL Hct 44.1 37.2 (37-47) % Coagulation 06/17/20 Range/Units 13:17 INR 1.0 (0.9-1.1) Diagnostic Findings Postoperative x-rays of the right hip show the prosthesis to be in anatomic alignment without any evidence of fracture, dislocation, or loosening. PG Care Time/CCT Total # of Minutes Spent Total Time Spent with Patient: Total time spent is greater than 50% in coordination of care (as documented) at patient's floor/unit and/or counseling patient: Coding Level of Care Code None Diagnoses History of right hip replacement Z96.641
[2019-09-07 08:17] LABS: BUN Creatinine Ratio 12.9 (10-20); Calcium 8.9 mg/dl (8.5-10.1); Creatinine Clr Calc Pharmacy 70.6 ml/min; Est GFR (Non-African American) 58.7
[2019-09-07] MEDS: lisinopriL 20 MG TAB PO SCH (09:27)
[2019-09-07] MEDS: VENLAFAXINE HCL XR 150 MG CAPXR PO SCH (09:28)
[2019-09-07] MEDS: SPIRONOLACTONE 25 MG TAB PO SCH (09:28)
[2019-09-07] MEDS: MULTIVITAMIN TAB PO SCH (09:28)
[2019-09-07] MEDS: PANTOprazole 40 MG TAB PO SCH (09:28)
[2019-09-07] MEDS: carvediloL 6.25 MG TAB PO SCH ×2 (09:29→21:08)
[2019-09-07] MEDS: GABAPENTIN 300 MG CAP PO SCH ×2 (09:29→21:09)
[2019-09-07] MEDS: ASPIRIN 81 MG ECTAB PO SCH ×2 (09:30→21:08)
[2019-09-07] MEDS: FLUTICASONE/VILANTEROL 100/25MCG 14 PUFFS/INHALER INH SCH ×2 (09:31→09:36)
[2019-09-07] MEDS: DOCUSATE SODIUM 100 MG CAP PO SCH ×2 (09:31→21:05)
[2019-09-07] MEDS: ATORVASTATIN 40 MG TAB PO SCH (21:09)
[2019-09-07] MEDS: MIRTAZAPINE TAB 15 MG TAB PO SCH (21:09)
[2019-09-07] MEDS: SENNA 8.6 MG TAB PO SCH (21:10)
[2019-09-07] MEDS: MONTELUKAST SODIUM 10 MG TABLET PO SCH (21:10)
[2019-09-08] MEDS: KETOROLAC TROMETHAMINE 15 MG/ML VIAL IV SCH ×3 (00:16→11:53)
[2019-09-08] MEDS: ACETAMINOPHEN 500 MG TAB PO SCH (05:36)
--- NOTE | 2019-09-08 07:28 | Orthopedic Progress Note ---
Date of Service September 08, 2019 Assessment & Plan (1) History of right hip replacement: Overall she is doing very well. She is having too much pain in the right hip. She will be seen again by physical therapy today for ambulation and range of motion exercises. She is on aspirin for DVT prophylaxis. She can be discharged home later today. She will follow-up with orthopedics in 2 weeks. Present on Admission?: Yes Subjective Oralia was seen and examined at bedside this morning. Overall she is doing very well. She is having too much pain in the right hip. She did very well yesterday with physical therapy and was very motivated. She feels safe returning home today. Physical Exam Musculoskeletal: On physical examination of the right hip, the Amina VAC dressing is to suction. Her leg lengths are equal. She has active dorsiflexion and plantarflexion of the right ankle. Results & Data ([facility]) Vital Signs (Past 12 Hours) Vital Signs Temp Pulse Pulse Resp BP BP Pulse Ox 09/08/19 06:31 37.0 C 67 16 133/81 98 09/07/19 23:11 36.9 C 70 16 145/72 H 95 09/07/19 21:07 67 108/65 PG Care Time/CCT Total # of Minutes Spent Total Time Spent with Patient: Total time spent is greater than 50% in coordination of care (as documented) at patient's floor/unit and/or counseling patient: Coding Level of Care Code None Diagnoses History of right hip replacement Z96.641
--- NOTE | 2019-09-08 07:31 | Discharge Summary ---
Date of Service September 08, 2019 Admission HPI Per Admitting Provider Oralia is a pleasant 64-year-old female who is been dealing with debilitating bilateral hip pain. I did a left total hip arthroplasty on her 2 years ago and she did very well with that. Unfortunately she is having a lot of right hip pain. X-rays and clinical examination have been diagnostic for advancing osteoarthritis of the right hip. After failing extensive conservative treatment, she has elected to proceed with a right total hip arthroplasty. Principal Diagnosis Right total hip arthroplasty Discharge Data Allergies Allergy/AdvReac Type Severity Reaction Status Date / Time amoxicillin Allergy Mild RASH Verified 09/06/19 09:47 rofecoxib Allergy Unknown Unknown Verified 09/06/19 09:47 aspirin AdvReac Unknown PER Verified 09/06/19 09:47 PATIENT, LISTED B/C SHE HAS ASTHMA-CAN USE W/O ISSUES NO simvastatin AdvReac Unknown Muscle Pain Verified 09/06/19 09:47 Consultations 09/07/19 08:00 Consult Case Management - Discharge Planning Routine Procedures Performed Operation Date: 09/06/19 11:30 Actual Procedures p Right Lateral Total Hip Arthroplasty(Right) - Oscar Leon DO Hospital Course (1) History of right hip replacement: On September 06, 2019 Oralia arrived at [facility] and underwent a right lateral total hip arthroplasty without complication. She had a general anesthetic. Postoperatively she was started on aspirin for DVT prophylaxis and transferred to the general orthopedic floors. Her hospital course was uneventful. On postop day #1 her H&H was stable and her pain was well controlled. She was able to participate well with physical therapy doing ambulation and range of motion exercises. On postop day #2 she continued to do well. She was not having too much pain in the right hip. She was seen once again by physical therapy. She felt safe returning home with her taking care of her. She was then discharged to home. She will follow-up with orthopedics in 2 weeks. Total Time Total Time Spent Total Time Spent (In Minutes): 20 Discharge Plan Discharge Items Patient Disposition: Home - Home Health Services Reason For Visit: Right Hip Degenerative Joint Disease Discharge Diagnosis: Right total hip arthroplasty Activity: As commented below Non-emergency contact: Surgeon Call non-emergency contact if: your wound has increased redness and your wound has increased drainage Follow-up/Referrals: Lashawn Servin CRNP [Primary Care Provider] - Diet: Regular and Carb Consistent or DM2 Addtl Attending Provider Instructions: Activity and Therapy Recommendations: * If you are using [facility] then therapy will be provided at your home until they feel you have accomplished all of your goals. * If you are using [facility] then Physical Therapy will be provided until they feel you are ready to start Outpatient Physical Therapy. * If you are not using home therapy then Outpatient Physical Therapy should start about 3-5 days from your day of surgery. Therapy will last about 6-10 weeks * You were shown a series of exercises in the hospital. Do these exercises three times each day including the exercises you were shown in physical therapy. * Get up and walk several times each day.~ For the first four weeks, try not to stand or walk for more than one hour at a time. If you do stand or walk for more than one hour, you will not hurt anything, but your leg will likely swell.~~ * As you feel comfortable, you may change from the walker or crutches to a cane and~then to independent walking. Medications: * Narcotic You will likely be sent home from the hospital with a prescription for the narcotic pain medication that worked best throughout your stay. * Aspirin Most patients will be required to take Aspirin 81mg twice a day for 6 weeks after surgery. This is obtained [id number] and a prescription is not necessary. * Other medications may be prescribed for specific circumstances. If you have any questions, please call the office at . * Resume previous home medications unless otherwise instructed TEDs/Elastic Stockings: The white elastic stockings help limit swelling and prevent blood clots from forming in your legs. The more you wear them, the more they work. Wear them for six weeks. Dressing Care: You will likely have a purple VAC dressing after surgery. This dressing will keep the incision dry and promote early healing. After about 7 days the batteries will wear out and the VAC will lose suction. Simply remove the dressing at that time and throw everything away, including the small suction machine. Then, you may leave the brad open to air or cover them with a dry dressing so they do not rub on your pants. The brad will be removed at your 2 week follow-up appointment. Showering: You may shower immediately with the purple VAC dressing. Let the shower spray hit your opposite side and slowly pat the plastic dry. Do not soak the dressing. After the dressing is removed you may shower normally with the brad exposed. Let soapy water run over the brad and pat them dry. Things To Watch For: * Drainage from the incision site that occurs more than one week after your surgery. * Increased redness at the incision site. * Fever above 102 degrees Fahrenheit. * Unusual chest pain or shortness of breath. * Call [facility] at with any of the above problems Follow-Up Visit: Follow-up with Dr. Leon's PA (Oscar So) 2-3 weeks after your day of surgery. He will remove your brad and answer any questions. If you have any additional questions or concerns, Dr Leon is usually in the office at the same time and will be available An appointment was probably scheduled when you signed-up for surgery in the office. If you have any questions call Office Instructions: More detailed instructions as well as Frequently Asked Questions were provided in a folder by our office when you signed-up for surgery. Please review these instructions when you get home. If you have any further questions or concerns, please feel free to call the office at [phone] Pending Studies at Discharge: No Stand-Alone Forms: My [facility], Smoking Cessation Medications and DC Order Prescriptions: New oxycodone 5 mg Tablet 5 mg PO Q4H PRN (Reason: pain) Qty: 30 RF: 0 aspirin 81 mg Tablet,Delayed Release (Dr/Ec) 81 mg PO BID 42 Days Qty: 0 RF: 0 Continued venlafaxine 150 mg capsule,extended release 24hr See Rx Instructions .ROUTE .COMPLEX Qty: 30 RF: 11 spironolactone 25 mg tablet See Rx Instructions .ROUTE .COMPLEX Qty: 30 RF: 11 cyclobenzaprine 10 mg tablet See Rx Instructions .ROUTE .COMPLEX Qty: 90 RF: 5 Hold Instructions: Insurance does not want to pay , do a trial baclofen gabapentin 300 mg capsule See Rx Instructions .ROUTE .COMPLEX Qty: 180 RF: 11 montelukast 10 mg tablet 10 mg PO QPM Qty: 90 RF: 3 celecoxib 200 mg capsule See Rx Instructions .ROUTE .COMPLEX Qty: 60 RF: 5 carvedilol 6.25 mg tablet 6.25 mg PO BID Qty: 60 RF: 5 buspirone 10 mg tablet See Rx Instructions .ROUTE .COMPLEX Qty: 60 RF: 5 Hold Instructions: Not using hydrocodone-acetaminophen 5-325 mg tablet 1 tab PO Q8H PRN (Reason: pain) Qty: 30 RF: 0 tramadol 50 mg tablet 50 - 100 mg PO HS Qty: 60 RF: 0 lisinopril 20 mg tablet 20 mg PO DAILY Qty: 30 RF: 3 albuterol sulfate [Ventolin HFA] 90 mcg/actuation HFA aerosol inhaler 2 puff INHALATION Q6H PRN (Reason: Shortness Of Breath) Qty: 18 RF: 0 Symbicort 160-4.5 mcg/actuation HFA aerosol inhaler 2 puff INHALATION BID RF: 0 meclizine 25 mg tablet 25 mg PO TID PRN (Reason: Dizziness) RF: 0 ipratropium-albuterol 0.5 mg-3 mg(2.5 mg base)/3 mL solution for nebulization 3 ml inhalation QID PRN (Reason: shortness of breath or wheezing) Qty: 2 RF: 0 (DME) Oxygen Home Liters Per Minute See Dose Instructions .ROUTE .MEDSUPPLY Qty: 1 RF: 0 diclofenac sodium 1 % gel 2 g TOPICAL QID PRN (Reason: Pain) Qty: 300 RF: 3 atorvastatin 40 mg tablet 40 mg PO HS RF: 0 cholecalciferol (vitamin D3) 2,000 unit tablet 4,000 units PO QAM RF: 0 pantoprazole [Protonix] 40 mg tablet,delayed release (DR/EC) 40 mg PO QAM RF: 0 mirtazapine 30 mg tablet 30 mg PO HS RF: 0 alprazolam 1 mg tablet 0.25 mg PO HS RF: 0 Discharge Orders: Discharge Order (Routine); Ordered 09/08/19 Ordered By: Oscar Leon Admission Data Admit Date/Time: 09/06/19 14:23 Attending Provider: Oscar Leon Admit Provider: Oscar Leon Primary Care Provider: Lashawn Servin Coding Level of Care Code D/C Day Management <30 mins Diagnoses History of right hip replacement Z96.641
[2019-09-08] MEDS: OXYCODONE HCL IR 5 MG TAB (IMMEDIATE RELEASE) PO PRN (08:24)
[2019-09-08] MEDS: SPIRONOLACTONE 25 MG TAB PO SCH (08:25)
[2019-09-08] MEDS: carvediloL 6.25 MG TAB PO SCH (08:26)
[2019-09-08] MEDS: DOCUSATE SODIUM 100 MG CAP PO SCH (08:26)
[2019-09-08] MEDS: FLUTICASONE/VILANTEROL 100/25MCG 14 PUFFS/INHALER INH SCH (08:26)
[2019-09-08] MEDS: MULTIVITAMIN TAB PO SCH (08:27)
[2019-09-08] MEDS: ASPIRIN 81 MG ECTAB PO SCH (08:27)
[2019-09-08] MEDS: VENLAFAXINE HCL XR 150 MG CAPXR PO SCH (08:27)
[2019-09-08] MEDS: GABAPENTIN 300 MG CAP PO SCH (08:27)
[2019-09-08] MEDS: lisinopriL 20 MG TAB PO SCH (08:28)
[2019-09-08] MEDS: PANTOprazole 40 MG TAB PO SCH (08:28)
== END 2019-09-08 12:43 | disposition home health service (06) ==
LOC: ASU 09:07 → 3E 14:23 → INTOOBSV 14:23

== ENCOUNTER 2019-10-02 19:20 | Inpatient (IN) ==
--- NOTE | 2019-10-02 20:38 | XRay Report ---
XR hip RT min 2V CLINICAL HISTORY: Right hip pain. COMPARISON: Right hip radiographs September 06, 2015. FINDINGS: Right hip arthroplasty is noted. Old right pubic ring fractures are noted. Note is made of an acute appearing displaced oblique periprosthetic fracture of the medial shaft of the proximal ri ght femur that extends into the subtrochanteric region. The fracture fragment is displaced 2 cm. IMPRESSION: Acute displaced periprosthetic fracture of the proximal medial right femur that extends t o the subtrochanteric region. ACT 112: Negative or not required by law. Electronically signed by: Romulo Salinas M.D. 10/02/2019 8:37 PM
--- NOTE | 2019-10-02 20:39 | XRay Report ---
XR femur RT 2V routine CLINICAL HISTORY: R hip pain COMPARISON: Right hip radiographs 09/06/2019. FINDINGS: Right hip arthroplasty is noted. Note is made of an acute oblique periprosthetic fracture of the medial proximal right femur that extends to the subtrochanteric region. No distal right femora l fracture is noted. Right knee osteoarthritis is noted. No right knee joint effusion. Old right pubi c ring fractures are incidentally noted. IMPRESSION: Acute displaced periprosthetic fracture of the proximal medial right femur that extends t o the subtrochanteric region. ACT 112: Negative or not required by law. Electronically signed by: Romulo Salinas M.D. 10/02/2019 8:38 PM
[2019-10-02] MEDS ORDERED: HYDROmorphone INJ 1 MG/ML SYRINGE IV STA (20:48)
[2019-10-02] MEDS ORDERED: SODIUM CHLORIDE 0.9% 1000ML 1,000 ML IV SCH (21:00)
--- NOTE | 2019-10-02 21:04 | Emergency Department Note ---
History of Present Illness General Chief complaint: Hip Pain Stated complaint: HIP PAIN Time Seen by Provider: 10/02/19 19:48 History of Present Illness Provider complaint: Hip pain Onset (ago): hour(s) 5 Location: pelvis and right Radiation: non-radiation Severity: severe Pain Consistency: + constant Maximum Pain Intensity: 8 Current Pain Intensity: 8 Quality: + sharp Relieved By: + none Exacerbated By: + none 64-year-old female presents emergency department for right hip pain. Patient reports that she had her hip replaced by Dr. Leon on September 05. She states that today at 4 PM she sat down and felt a pop in her right hip. She states the pain is severe. She states it feels sharp and cramping. No radiation of the pain. Patient denies hitting her head or loss of consciousness. Home Medications Home Medications Medication Instructions Recorded Confirmed Type albuterol sulfate 90 mcg/actuation 2 puff INHALATION Q6H PRN #18 gm 08/13/18 09/06/19 Rx aerosol inhaler budesonide-formoterol HFA 160 2 puff INHALATION BID 08/13/18 09/06/19 History mcg-4.5 mcg/actuation aerosol inhaler ipratropium 0.5 mg-albuterol 3 mg 3 ml INHALATION QID PRN #2 ml 08/13/18 09/06/19 History (2.5 mg base)/3 mL nebulization soln meclizine 25 mg tablet 25 mg PO TID PRN tab 08/13/18 09/06/19 History cyclobenzaprine 10 mg tablet See Rx Instructions .ROUTE 02/04/19 09/06/19 Rx .COMPLEX #90 tablet spironolactone 25 mg tablet See Rx Instructions .ROUTE 02/04/19 09/06/19 Rx .COMPLEX #30 tablet venlafaxine 150 mg See Rx Instructions .ROUTE 02/04/19 09/06/19 Rx capsule,extended release 24 hr .COMPLEX #30 capsule Oxygen Home #1 ea 02/20/19 08/28/19 History gabapentin 300 mg capsule See Rx Instructions .ROUTE 03/08/19 09/06/19 Rx .COMPLEX #180 capsule montelukast 10 mg tablet 10 mg PO QPM #90 tab 04/04/19 09/06/19 Rx diclofenac sodium 1 % topical gel 2 g TOPICAL QID PRN #300 gm 04/15/19 09/06/19 Rx celecoxib 200 mg capsule See Rx Instructions .ROUTE 04/18/19 09/06/19 Rx .COMPLEX #60 cap buspirone 10 mg tablet See Rx Instructions .ROUTE 05/16/19 09/06/19 Rx .COMPLEX #60 tablet hydrocodone 5 mg-acetaminophen 325 1 tab PO Q8H PRN #30 tab 08/06/19 09/06/19 Rx mg tablet atorvastatin 40 mg PO HS 08/21/19 09/06/19 History cholecalciferol (vitamin D3) 4,000 units PO QAM 08/21/19 09/06/19 History mirtazapine 30 mg PO HS 08/21/19 09/06/19 History pantoprazole [Protonix] 40 mg PO QAM 08/21/19 09/06/19 History lisinopril 20 mg tablet 20 mg PO DAILY #30 tab 09/02/19 09/06/19 Rx alprazolam 0.25 mg PO HS 09/06/19 09/06/19 History aspirin 81 mg PO BID 42 Days #0 tab 09/06/19 Rx oxycodone 5 mg PO Q4H PRN #30 tab 09/06/19 Rx oxycodone-acetaminophen 5 mg-325 1 tab PO Q6H PRN #30 tab 09/18/19 09/18/19 Rx mg tablet carvedilol 6.25 mg tablet 6.25 mg PO BID #60 tab 09/23/19 Rx tramadol 50 mg tablet 50 - 100 mg PO HS #60 tab 09/24/19 Rx oxycodone-acetaminophen 5 mg-325 1 tab PO Q6H PRN #30 tab 09/30/19 Rx mg tablet Allergies Allergy/AdvReac Type Severity Reaction Status Date / Time amoxicillin Allergy Mild RASH Verified 09/06/19 09:47 rofecoxib Allergy Unknown Unknown Verified 09/06/19 09:47 aspirin AdvReac Unknown PER Verified 09/06/19 09:47 PATIENT, LISTED B/C SHE HAS ASTHMA-CAN USE W/O ISSUES NO simvastatin AdvReac Unknown Muscle Pain Verified 09/06/19 09:47 Past Med/Surg History Medical History Asthma STABLE Chronic obstructive pulmonary disease STABLE; ON O2 2L PRN ACTIVITY*-F/U DR CELIA JACOBS Congestive heart failure REMOTE-HX- STABLE AND CONTROLLED Depression GERD (gastroesophageal reflux disease) CONTROLLED Hiatal hernia Hypercholesteremia Hypertension Migraine HX Morbid obesity Pulmonary embolism ~2012- on AC x 1 year - then d/'edwardo - no issues since Sleep apnea CPAP, stopped 2017, couldn't war mask d/t anxiety SOBOE (shortness of breath on exertion) CHRONIC/MILD AND STABLE Surgical History H/O foot surgery History of bilateral carpal tunnel release History of esophagogastroduodenoscopy (EGD) History of right hip replacement (~08/2019) History of tonsillectomy and adenoidectomy History of total left hip replacement (~2017) Previous back surgery S/P insertion of spinal cord stimulator 2/2 LBP/RADICULOPATHY; PATIENT ADVISED TO BRING REMOTE AM DOS (OR NOTIFIED) Status post correction of deviated nasal septum Status post insertion of spinal cord stimulator Family History Father Prostate cancer Myocardial infarction Diabetes Mother Myocardial infarction Family/Other Heart disease Hypertension Other Family history non-contributory Denies family history of Ovarian cancer Breast cancer Colorectal cancer Social History Smoking Status: Never smoker Second Hand Exposure: Yes (FATHER SMOKED/SPOUSE SMOKES OUTSIDE); Hx Alcohol Use: Yes Alcohol type: beer Hx Substance Use: No Preferred Language: Bengali Communication Ability: Effective Visual Impairment: No Limitations Hearing Ability: Normal [employer] Development Advisor Required: No Beliefs That Will Affect Care: None marital status: Current Living Situation: Spouse current occupational status: disabled Feels Safe at Home: Yes Dental Care, Regularly: No Seatbelt Use: always Sunscreen Use: Yes Review of Systems A total of 10 systems reviewed and were otherwise negative Physical Exam Vital Signs Vital Signs - 24 hr 10/02/19 19:31 10/02/19 19:37 10/02/19 20:00 Temperature 36.8 C Temperature Source Oral Pulse Rate 86 83 87 Pulse Rate [Right Finger] Pulse Rate from SpO2 Sensor 85 83 87 Respiratory Rate 16 26 H 17 Blood Pressure 196/99 H Blood Pressure [Right Arm] Blood Pressure Mean 128 Blood Pressure Mean [Right Arm] Pulse Oximetry 93 90 94 Oxygen Delivery Method Room Air Sepsis Recent Fever Within 48 Hours No Sepsis New/Unexplained Change in Mental Status No Sepsis Action Taken by Nursing No Action Required 10/02/19 20:32 10/02/19 20:33 10/02/19 21:01 Temperature Temperature Source Pulse Rate 85 86 88 Pulse Rate [Right Finger] Pulse Rate from SpO2 Sensor 85 84 Respiratory Rate 32 H 15 20 Blood Pressure 184/106 H Blood Pressure [Right Arm] Blood Pressure Mean 127 Blood Pressure Mean [Right Arm] Pulse Oximetry 93 91 Oxygen Delivery Method Sepsis Recent Fever Within 48 Hours Sepsis New/Unexplained Change in Mental Status Sepsis Action Taken by Nursing 10/02/19 21:24 Temperature Temperature Source Pulse Rate Pulse Rate [Right Finger] 87 Pulse Rate from SpO2 Sensor Respiratory Rate 21 Blood Pressure Blood Pressure [Right Arm] 170/87 H Blood Pressure Mean Blood Pressure Mean [Right Arm] 114 Pulse Oximetry 95 Oxygen Delivery Method Sepsis Recent Fever Within 48 Hours Sepsis New/Unexplained Change in Mental Status Sepsis Action Taken by Nursing Physical Exam GENERAL: She is oriented to person, place, and time. She appears well-developed and well-nourished. She does not appear distressed. HENT: Exam performed. -Head: Normocephalic and atraumatic. -Right Ear: External ear normal. No mastoid tenderness. -Left Ear: External ear normal. No mastoid tenderness. -Mouth/Throat: The oropharynx is clear and moist. No trismus in the jaw. No dental abscesses or uvula swelling. No oropharyngeal exudate or tonsillar abscesses. EYES: Conjunctivae and EOM are normal. Pupils are equal, round, and reactive to light. Right eye exhibits no discharge. Left eye exhibits no discharge. No scleral icterus. NECK: Normal range of motion. Neck supple. No JVD present. No spinous process tenderness present. No carotid bruit present. No rigidity. No tracheal deviation and normal range of motion present. No Brudzinski's sign and no Kernig's sign noted. CV: Normal rate, regular rhythm, normal heart sounds and intact distal pulses. There is no peripheral edema. Palpable radial pulses bue. PULM/CHEST: Effort normal and breath sounds normal. No respiratory distress. No stridor. She has no wheezes. She has no rales. -Chest Wall: She exhibits no tenderness. ABD: Obese. The abdomen is soft. Bowel sounds are normal. She has no distension. No mass is present. There is no tenderness. There is no rebound, no guarding, no Montelongo's sign and no tenderness at McBurney's point. Rovsig negative MUSC/SKEL: Pain on palpation of the right hip and right femur. LYMPH: No cervical adenopathy. NEURO: She is alert and oriented to person, place, and time. She has normal strength. No cranial nerve deficit or sensory deficit. Coordination and gait normal. GCS eye subscore is 4. GCS verbal subscore is 5. GCS motor subscore is 6. Cerebellar tests wnl. SKIN: Skin is warm and dry. She is not diaphoretic. PSYCH: She has a normal mood and affect. Behavior is normal. Judgment and thought content normal. Course Course 1947: The patient was evaluated in room A11. A complete history and physical exam was performed. 2100: X-ray shows periprosthetic fracture. Discussed with Dr. Amador Brannon on- call for Dr. Leon who states to admit the patient to medicine and place the patient in Hernández's traction. Hip fracture order set implicated. [facility] Administered Medications Sodium Chloride (Nss 1000ml) 1,000 mls @ 150 mls/hr IV .Q6H40M MEAGHAN Stop: 10/03/19 03:39 Last Admin: 10/02/19 21:07 Dose: 150 mls/hr Documented by: [id number] Discontinued Medications Hydromorphone HCl (Dilaudid) 1 mg IV NOW STA Stop: 10/02/19 20:49 Last Admin: 10/02/19 21:07 Dose: 1 mg Documented by: [id number] Medical Decision Making Laboratory Data Result diagrams: 10/02/19 21:02 10/02/19 21:02 Lab Results 10/02/19 10/02/19 10/02/19 Range/Units 21:02 21:02 21:02 WBC 10.20 (4.8-10.8) K/uL RBC 3.87 L (4.2-5.4) M/uL Hgb 11.7 L (12.0-16.0) g/dL Hct 37.6 (37-47) % MCV 97.2 (80-100) fL MCH 30.2 (25-34) pg MCHC 31.1 L (32-36) g/dL RDW Std Deviation 48.0 H (36.4-46.3) fL RDW Coeff of Jamie 13.6 (11.5-14.5) % Plt Count 380 (130-400) K/uL MPV 9.3 (7.4-10.4) fL Immature Gran % (Auto) 0.1 % Neut % (Auto) 80.6 % Lymph % (Auto) 11.3 % [place] % (Auto) 7.4 % Eos % (Auto) 0.5 % Baso % (Auto) 0.1 % Neut # (Auto) 8.23 H (1.4-6.5) K/uL Lymph # (Auto) 1.15 L (1.2-3.4) K/uL [place] # (Auto) 0.75 H (0.11-0.59) K/uL Eos # (Auto) 0.05 (0-0.5) K/uL Baso # (Auto) 0.01 (0-0.2) K/uL Immature Gran # (Auto) 0.01 (0.00-0.02) K/uL PT 10.1 (9.0-12.0) Seconds INR 1.0 (0.9-1.1) APTT 26.5 (21.0-31.0) Seconds PTT Ratio 0.9 Sodium 139 (136-145) mmol/L Potassium 4.0 (3.5-5.1) mmol/L Chloride 108 H (98-107) mmol/L Carbon Dioxide 26 (21-32) mmol/L Anion Gap 5.0 (3-11) BUN 14 (7-18) mg/dl Creatinine 0.87 (0.6-1.2) mg/dl Est Cr Clr Drug Dosing 82.2 ml/min Est GFR ( Amer) 80.5 Est GFR (Non-Af Amer) 69.4 BUN/Creatinine Ratio 15.7 (10-20) Glucose 118 H (70-99) mg/dl Calcium 9.5 (8.5-10.1) mg/dl Imaging Data My Impression: Chest x-ray negative. Airway clear. No pneumothorax. No consolidation. No cardiomegaly or cephalization.. No free air under the diaphragm. No fractures of the skeletal structures. Radiologist's Impression: XR femur RT 2V routine CLINICAL HISTORY: R hip pain COMPARISON: Right hip radiographs 09/06/2019. FINDINGS: Right hip arthroplasty is noted. Note is made of an acute oblique periprosthetic fracture of the medial proximal right femur that extends to the subtrochanteric region. No distal right femoral fracture is noted. Right knee osteoarthritis is noted. No right knee joint effusion. Old right pubic ring fractures are incidentally noted. IMPRESSION: Acute displaced periprosthetic fracture of the proximal medial right femur that extends to the subtrochanteric region. ACT 112: Negative or not required by law. Electronically signed by: Romulo Salinas M.D. 10/02/2019 8:38 PM Dictated: 10/02/192036 Transcribed: 10/02/192036 XR hip RT min 2V CLINICAL HISTORY: Right hip pain. COMPARISON: Right hip radiographs September 06, 2015. FINDINGS: Right hip arthroplasty is noted. Old right pubic ring fractures are noted. Note is made of an acute appearing displaced oblique periprosthetic fracture of the medial shaft of the proximal right femur that extends into the subtrochanteric region. The fracture fragment is displaced 2 cm. IMPRESSION: Acute displaced periprosthetic fracture of the proximal medial right femur that extends to the subtrochanteric region. ACT 112: Negative or not required by law. Electronically signed by: Romulo Salinas M.D. 10/02/2019 8:37 PM Dictated: 10/02/192032 Transcribed: 10/02/192032 ECG Data Additional Comments: EKG shows sinus rhythm with rate of 87. No ST elevation or ST depression. There is significant artifact due to the patient's spinal stimulator. [facility] Narrative X-ray shows periprosthetic fracture. Discussed with Dr. Amador Brannon on-call for Dr. Leon who states to admit the patient to medicine and place the patient in Hernández's traction. Hip fracture order set implicated. [facility] Impression & Plan Fracture of prosthetic hip Discharge Plan Visit Data Chief Complaint: Hip Pain Stated Complaint: HIP PAIN ED Provider: Cecil Mccoy Discharge Problem: Fracture of prosthetic hip Patient Disposition: Admitted As Inpatient Forms Stand Alone Forms: [facility] Prescriptions Prescriptions: No Action venlafaxine 150 mg capsule,extended release 24hr See Rx Instructions .ROUTE .COMPLEX Qty: 30 RF: 11 spironolactone 25 mg tablet See Rx Instructions .ROUTE .COMPLEX Qty: 30 RF: 11 cyclobenzaprine 10 mg tablet See Rx Instructions .ROUTE .COMPLEX Qty: 90 RF: 5 Hold Instructions: Insurance does not want to pay , do a trial baclofen gabapentin 300 mg capsule See Rx Instructions .ROUTE .COMPLEX Qty: 180 RF: 11 montelukast 10 mg tablet 10 mg PO QPM Qty: 90 RF: 3 celecoxib 200 mg capsule See Rx Instructions .ROUTE .COMPLEX Qty: 60 RF: 5 buspirone 10 mg tablet See Rx Instructions .ROUTE .COMPLEX Qty: 60 RF: 5 Hold Instructions: Not using hydrocodone-acetaminophen 5-325 mg tablet 1 tab PO Q8H PRN (Reason: pain) Qty: 30 RF: 0 carvedilol 6.25 mg tablet 6.25 mg PO BID Qty: 60 RF: 5 tramadol 50 mg tablet 50 - 100 mg PO HS Qty: 60 RF: 0 oxycodone-acetaminophen [Percocet] 5-325 mg tablet 1 tab PO Q6H PRN (Reason: pain) Qty: 30 RF: 0 oxycodone-acetaminophen [Percocet] 5-325 mg tablet 1 tab PO Q6H PRN (Reason: pain) Qty: 30 RF: 0 lisinopril 20 mg tablet 20 mg PO DAILY Qty: 30 RF: 3 albuterol sulfate [Ventolin HFA] 90 mcg/actuation HFA aerosol inhaler 2 puff INHALATION Q6H PRN (Reason: Shortness Of Breath) Qty: 18 RF: 0 Symbicort 160-4.5 mcg/actuation HFA aerosol inhaler 2 puff INHALATION BID RF: 0 meclizine 25 mg tablet 25 mg PO TID PRN (Reason: Dizziness) RF: 0 ipratropium-albuterol 0.5 mg-3 mg(2.5 mg base)/3 mL solution for nebulization 3 ml inhalation QID PRN (Reason: shortness of breath or wheezing) Qty: 2 RF: 0 (DME) Oxygen Home Liters Per Minute See Dose Instructions .ROUTE .MEDSUPPLY Qty: 1 RF: 0 diclofenac sodium 1 % gel 2 g TOPICAL QID PRN (Reason: Pain) Qty: 300 RF: 3 atorvastatin 40 mg tablet 40 mg PO HS RF: 0 cholecalciferol (vitamin D3) 2,000 unit tablet 4,000 units PO QAM RF: 0 pantoprazole [Protonix] 40 mg tablet,delayed release (DR/EC) 40 mg PO QAM RF: 0 mirtazapine 30 mg tablet 30 mg PO HS RF: 0 alprazolam 1 mg tablet 0.25 mg PO HS RF: 0 oxycodone 5 mg Tablet 5 mg PO Q4H PRN (Reason: pain) Qty: 30 RF: 0 aspirin 81 mg Tablet,Delayed Release (Dr/Ec) 81 mg PO BID 42 Days Qty: 0 RF: 0 Referrals Referrals: Lashawn Servin CRNP [Primary Care Provider] - Discharge Problem: Fracture of prosthetic hip Qualifiers: Encounter type: initial encounter Qualified Code(s): T84.019A - Broken internal joint prosthesis, unspecified site, initial encounter
[2019-10-02 21:18] LABS: Basophils # (auto) 0.01 K/uL (0-0.2); Basophils % (auto) 0.1 %; Eosinophils # (auto) 0.05 K/uL (0-0.5); Eosinophils % (auto) 0.5 %; Hematocrit (blood only) 37.6 % (37-47); Hemoglobin 11.7 g/dL (12.0-16.0); Immature Granulocytes # (auto) 0.01 K/uL (0.00-0.02); Immature Granulocytes % (auto) 0.1 %; Lymphocytes # (auto) 1.15 K/uL (1.2-3.4); Lymphocytes % (auto) 11.3 %; Mean Corpuscular Hemoglobin 30.2 pg (25-34); Mean Corpuscular Hgb Conc 31.1 g/dL (32-36); Mean Corpuscular Volume 97.2 fL (80-100); Mean Platelet Volume 9.3 fL (7.4-10.4); Monocytes # (auto) 0.75 K/uL (0.11-0.59); Monocytes % (auto) 7.4 %; Neutrophils # (auto) 8.23 K/uL (1.4-6.5); Neutrophils % (auto) 80.6 %; Platelet Count 380 K/uL (130-400); RDW Coefficient of Variation 13.6 % (11.5-14.5); Red Blood Count 3.87 M/uL (4.2-5.4)
[2019-10-02 21:39] LABS: Partial Thromboplastin Ratio 0.9; Partial Thromboplastin Time 26.5 Seconds (21.0-31.0); Prothrombin Time 10.1 Seconds (9.0-12.0)
[2019-10-02 21:42] LABS: BUN Creatinine Ratio 15.7 (10-20); Calcium 9.5 mg/dl (8.5-10.1); Creatinine Clr Calc Pharmacy 82.2 ml/min; Est GFR (African American) 80.5; Est GFR (Non-African American) 69.4
[2019-10-02] MEDS ORDERED: MoRPHine SULFATE 2 MG/ML CARP IV STA (22:03)
--- NOTE | 2019-10-02 22:18 | History & Physical Report ---
Date of Service October 02, 2019 Assessment & Plan (1) Fracture of prosthetic hip: 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 Admit to [facility] with a closed acute displaced periprosthetic fracture. NPO NSS + KCl 20 mEq at 80 mils per hour Dilaudid 1 mg IV every 3 hours as needed severe pain Zofran 4 mg IV every 6 hours PRN Consult orthopedic surgery Dr. Leon. Present on Admission?: Yes (2) History of right hip replacement: See above Present on Admission?: Yes (3) Status post insertion of spinal cord stimulator: She reports that her will bring in device as needed to turn off spinal cord stimulator for surgery. Present on Admission?: Yes (4) Hypercholesteremia: Resume atorvastatin 40 mg at bedtime after surgery. Present on Admission?: Yes (5) Obesity: Contributing factor to periprosthetic fracture. Present on Admission?: Yes (6) Hypertension: Resume spironolactone, and lisinopril post surgery. continue carvedilol 6.25 mg p.o. twice daily pre-and post surgery Hold aspirin Present on Admission?: Yes (7) Dependence on supplemental oxygen: Continue nasal cannula oxygen, with titration goal to 94 to 95% pulse ox Present on Admission?: Yes (8) GERD (gastroesophageal reflux disease): Hold pantoprazole p.o. for now. Famotidine 20 mg IV every 12 hours Present on Admission?: Yes (9) Chronic obstructive pulmonary disease: Continue Symbicort 160/4.5, 2 puffs twice daily. Duonebs every 4 hours as needed. Present on Admission?: Yes (10) Anxiety and depression: Resume alprazolam, buspirone, mirtazapine and gabapentin post surgery Present on Admission?: Yes History of Present Illness Chief Complaint: The patient presents to the emergency department with the acute onset of right hip pain as she was sitting down earlier in evening and heard and felt a pop from her newly replaced right hip. Primary Care Provider: SARAH Moulton The patient is a 64-year-old female with a past medical history including hypercholesterolemia, obesity, insomnia, gait disorder, chronic respiratory failure, cervical radiculopathy, venous insufficiency, anxiety, chronic low back pain, herpes zoster and hypertension. She was recently hospitalized from 09/04- 09/07, where she underwent a right total hip arthroplasty on 09/[address] Leon. As noted above, she was sitting down tonight, heard and felt a pop in her right hip, and developed significant pain at that moment. Upon arrival in the emergency department, she had a work-up which included x-rays and laboratories, with x-ray showing an acute, closed, displaced periprosthetic right hip fracture. Allergies Allergy/AdvReac Type Severity Reaction Status Date / Time amoxicillin Allergy Mild RASH Verified 10/02/19 22:45 rofecoxib Allergy Unknown Unknown Verified 10/02/19 22:45 aspirin AdvReac Unknown PER Verified 10/02/19 22:45 PATIENT, LISTED B/C SHE HAS ASTHMA-CAN USE W/O ISSUES NO simvastatin AdvReac Unknown Muscle Pain Verified 10/02/19 22:45 Home Medications Home Medications Medication Instructions Recorded Confirmed Type albuterol sulfate 90 mcg/actuation 2 puff INHALATION Q6H PRN #18 gm 08/13/18 09/06/19 Rx aerosol inhaler budesonide-formoterol HFA 160 2 puff INHALATION BID 08/13/18 09/06/19 History mcg-4.5 mcg/actuation aerosol inhaler ipratropium 0.5 mg-albuterol 3 mg 3 ml INHALATION QID PRN #2 ml 08/13/18 09/06/19 History (2.5 mg base)/3 mL nebulization soln meclizine 25 mg tablet 25 mg PO TID PRN tab 08/13/18 09/06/19 History cyclobenzaprine 10 mg tablet See Rx Instructions .ROUTE 02/04/19 09/06/19 Rx .COMPLEX #90 tablet spironolactone 25 mg tablet See Rx Instructions .ROUTE 02/04/19 09/06/19 Rx .COMPLEX #30 tablet venlafaxine 150 mg See Rx Instructions .ROUTE 02/04/19 09/06/19 Rx capsule,extended release 24 hr .COMPLEX #30 capsule Oxygen Home #1 ea 02/20/19 08/28/19 History gabapentin 300 mg capsule See Rx Instructions .ROUTE 03/08/19 09/06/19 Rx .COMPLEX #180 capsule montelukast 10 mg tablet 10 mg PO QPM #90 tab 04/04/19 09/06/19 Rx diclofenac sodium 1 % topical gel 2 g TOPICAL QID PRN #300 gm 04/15/19 09/06/19 Rx atorvastatin 40 mg PO HS 08/21/19 09/06/19 History mirtazapine 30 mg PO HS 08/21/19 09/06/19 History pantoprazole [Protonix] 40 mg PO QAM 08/21/19 09/06/19 History lisinopril 20 mg tablet 20 mg PO DAILY #30 tab 09/02/19 09/06/19 Rx alprazolam 0.25 mg PO HS 09/06/19 09/06/19 History aspirin 81 mg PO BID 42 Days #0 tab 09/06/19 Rx carvedilol 6.25 mg tablet 6.25 mg PO BID #60 tab 09/23/19 Rx tramadol 50 mg tablet 50 - 100 mg PO HS #60 tab 09/24/19 Rx oxycodone-acetaminophen 5 mg-325 1 tab PO Q6H PRN #30 tab 09/30/19 Rx mg tablet buspirone 10 mg PO BID PRN 10/02/19 10/02/19 History celecoxib [Celebrex] 200 mg PO BID 10/02/19 10/02/19 History Past Med/Surg History Medical History Asthma STABLE Chronic obstructive pulmonary disease STABLE; ON O2 2L PRN ACTIVITY*-F/U DR CELIA JCAOBS Congestive heart failure REMOTE-HX- STABLE AND CONTROLLED Depression GERD (gastroesophageal reflux disease) CONTROLLED Hiatal hernia Hypercholesteremia Hypertension Migraine HX Morbid obesity Pulmonary embolism ~2012- on AC x 1 year - then d/'edwardo - no issues since Sleep apnea CPAP, stopped 2017, couldn't war mask d/t anxiety SOBOE (shortness of breath on exertion) CHRONIC/MILD AND STABLE Surgical History H/O foot surgery History of bilateral carpal tunnel release History of esophagogastroduodenoscopy (EGD) History of right hip replacement (~08/2019) History of tonsillectomy and adenoidectomy History of total left hip replacement (~2017) Previous back surgery S/P insertion of spinal cord stimulator 2/2 LBP/RADICULOPATHY; PATIENT ADVISED TO BRING REMOTE AM DOS (OR NOTIFIED) Status post correction of deviated nasal septum Status post insertion of spinal cord stimulator Family History Father Prostate cancer Myocardial infarction Diabetes Mother Myocardial infarction Family/Other Heart disease Hypertension Other Family history non-contributory Denies family history of Ovarian cancer Breast cancer Colorectal cancer Social History Smoking Status: Never smoker Second Hand Exposure: Yes (FATHER SMOKED/SPOUSE SMOKES OUTSIDE); Hx Alcohol Use: Yes Alcohol type: beer Hx Substance Use: No Preferred Language: Wolof Communication Ability: Effective Visual Impairment: No Limitations Hearing Ability: Normal [employer]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: No Beliefs That Will Affect Care: None marital status: Current Living Situation: Spouse current occupational status: disabled Feels Safe at Home: Yes Dental Care, Regularly: No Seatbelt Use: always Sunscreen Use: Yes Review of Systems Review of Systems: The patient denies chest pain, palpitations, shortness of breath, dyspnea on exertion, cough, lower extremity swelling, sore throat, fevers, chills, sweats, weight change, fatigue, nausea, vomiting, diarrhea , constipation, abdominal pain, pelvic pain, blood in urine or stool, dysuria, urinary frequency or urgency, lightheadedness, dizziness, headache, memory loss, loss of consciousness, rash, abnormal bruising or bleeding, focal or generalized weakness, numbness or tingling in arms, generalized arthralgias or myalgias, back or neck pain, or night sweats. The review of systems is otherwise negative other than for that already noted above, and at least 10 systems have been reviewed. Physical Exam Physical Exam: The patient is awake, alert and oriented 3, well developed and well nourished, normocephalic and atraumatic, lying in bed and in no acute distress. HEENT--PERRL, EOMI, mucous membranes and oropharynx normal. Neck--supple. No JVD. No bruits. Thyroid normal, trachea midline, no adenopathy. Heart--normal S1 and S2. No murmurs, rubs or gallops. Lungs--clear bilaterally, no respiratory distress, no accessory muscle use. Abdomen--normal bowel sounds and soft. Nontender. Nondistended. Obese. Extremities--no cyanosis or clubbing. No edema. Dermatologic--normal skin turgor, normal color, no abnormal lymph nodes, no rash. Neurologic--cranial nerves II through XII grossly intact. Rheumatologic--limited range of motion due to hip fracture. Psychiatric--normal affect. Results & Data Results & Data ([facility]) Vital Signs (Past 12 Hours) Vital Signs Temp Pulse Pulse Resp BP BP Pulse Ox 10/02/19 21:24 87 21 170/87 H 95 10/02/19 21:01 88 20 10/02/19 20:33 86 15 184/106 H 91 10/02/19 20:32 85 32 H 93 10/02/19 20:00 87 17 94 10/02/19 19:37 83 26 H 90 10/02/19 19:31 98.2 F 86 16 196/99 H 93 Laboratory Results Laboratory Results WBC 10.20 K/uL (4.8-10.8) 10/02/19 21:02 RBC 3.87 M/uL (4.2-5.4) L 10/02/19 21: Hgb 11.7 g/dL (12.0-16.0) L 10/02/19 21:02 Hct 37.6 % (37-47) 10/02/19 21: MCV 97.2 fL (80-100) 10/02/19 21: MCH 30.2 pg (25-34) 10/02/19 21: MCHC 31.1 g/dL (32-36) L 10/02/19 21:02 RDW Std Deviation 48.0 fL (36.4-46.3) H 10/02/19 21: RDW Coeff of Jamie 13.6 % (11.5-14.5) 10/02/19 21: Plt Count 380 K/uL (130-400) 10/02/19 21: MPV 9.3 fL (7.4-10.4) 10/02/19 21: Immature Gran % (Auto) 0.1 % 10/02/19: Neut % (Auto) 80.6 % 10/02/19 21: Lymph % (Auto) 11.3 % 10/02/19 21: [place] % (Auto) 7.4 % 10/02/19 21: Eos % (Auto) 0.5 % 10/02/19 21:02 Baso % (Auto) 0.1 % 10/02/19 21:02 Neut # (Auto) 8.23 K/uL (1.4-6.5) H 10/02/19 21:02 Lymph # (Auto) 1.15 K/uL (1.2-3.4) L 10/02/19 21:02 [place] # (Auto) 0.75 K/uL (0.11-0.59) H 10/02/19 21:02 Eos # (Auto) 0.05 K/uL (0-0.5) 10/02/19 21:02 Baso # (Auto) 0.01 K/uL (0-0.2) 10/02/19 21:02 Immature Gran # (Auto) 0.01 K/uL (0.00-0.02) 10/02/19 21:02 PT 10.1 Seconds (9.0-12.0) 10/02/19 21: INR 1.0 (0.9-1.1) 10/02/19 21: APTT 26.5 Seconds (21.0-31.0) 10/02/19 21: PTT Ratio 0.9 10/02/19 21: Sodium 139 mmol/L (136-145) 10/02/19 21: Potassium 4.0 mmol/L (3.5-5.1) 10/02/19 21: Chloride 108 mmol/L (98-107) H 10/02/19 21: Carbon Dioxide 26 mmol/L (21-32) 10/02/19 21: Anion Gap 5.0 (3-11) 10/02/19 21: BUN 14 mg/dl (7-18) 10/02/19 21: Creatinine 0.87 mg/dl (0.6-1.2) 10/02/19 21: Est Cr Clr Drug Dosing 82.2 ml/min 10/02/19 21:02 Est GFR ( Amer) 80.5 10/02/19 21:02 Est GFR (Non-Af Amer) 69.4 10/02/19 21:02 BUN/Creatinine Ratio 15.7 (10-20) 10/02/19 21: Glucose 118 mg/dl (70-99) H 10/02/19 21:02 Calcium 9.5 mg/dl (8.5-10.1) 10/02/19 21:02 Blood Type A Positive 10/02/19 21:02 Antibody Screen NEGATIVE 10/02/19 21:02 Diagnostic Findings [facility], [place] [phone] XRay Report Patient: MUSHTAQ FIGUEROA Date: 10/02/19 MR#: [id number]: [address] Acct ID:[id number]: Date: [address] [place] [address] Zip: [place] [address] Age: 64Location: ED Sex: F Room/Bed: Att Phy:Diagnosis: HIP PAIN Marce Phy: Lashawn Servin CRNPService Date: 10/02/19 Fam Phy:Interpreting Phy: Romulo Salinas MD Admit Phy: Ordering Phy: Cecil Mccoy MD cc: ~ XR hip RT min 2V CLINICAL HISTORY: Right hip pain. COMPARISON: Right hip radiographs September 06, 2015. FINDINGS: Right hip arthroplasty is noted. Old right pubic ring fractures are noted. Note is made of an acute appearing displaced oblique periprosthetic fracture of the medial shaft of the proximal right femur that extends into the subtrochanteric region. The fracture fragment is displaced 2 cm. IMPRESSION: Acute displaced periprosthetic fracture of the proximal medial right femur that extends to the subtrochanteric region. ACT 112: Negative or not required by law. Electronically signed by: Romulo Salinas M.D. 10/02/2019 8:37 PM Dictated: 10/02/192032 Transcribed: 10/02/192032 [facility], [place] [phone] XRay Report Patient: MUSHTAQ FIGUEROA Date: 10/02/19 MR#: [id number]: [address] Acct ID:[id number]: Date: [address] [place] [address] Zip: [place] [address] Age: 64Location: ED Sex: F Room/Bed: Att Phy:Diagnosis: HIP PAIN Marce Phy: Lashawn Servin CRNPService Date: 10/02/19 [facility] Phy:Interpreting Phy: Romulo Salinas MD Admit Phy: Ordering Phy: Cecil Mccoy MD cc: ~ XR femur RT 2V routine CLINICAL HISTORY: R hip pain COMPARISON: Right hip radiographs 09/06/2019. FINDINGS: Right hip arthroplasty is noted. Note is made of an acute oblique periprosthetic fracture of the medial proximal right femur that extends to the subtrochanteric region. No distal right femoral fracture is noted. Right knee osteoarthritis is noted. No right knee joint effusion. Old right pubic ring fractures are incidentally noted. IMPRESSION: Acute displaced periprosthetic fracture of the proximal medial right femur that extends to the subtrochanteric region. ACT 112: Negative or not required by law. Electronically signed by: Romulo Salinas M.D. 10/02/2019 8:38 PM Dictated: 10/02/192036 Transcribed: 10/02/192036 Code Status & VTE Plan Code Status Full code VTE Prophylaxis Plan VTE Prophylaxis will be ordered: Yes PG Care Time/CCT Total # of Minutes Spent Total Time Spent with Patient: Total time spent is greater than 50% in coordination of care (as documented) at patient's floor/unit and/or counseling patient: Coding Level of Care Code 63013 Initial Inpt Care Lvl 3 Diagnoses Fracture of prosthetic hip T84.019A; Z96.649 Encounter type: initial encounter History of right hip replacement Z96.641 Status post insertion of spinal cord stimulator Z98.890 Hypercholesteremia E78.00 Obesity E66.9 Hypertension I10 Dependence on supplemental oxygen Z99.81 GERD (gastroesophageal reflux disease) K21.9 Chronic obstructive pulmonary disease J44.9 Anxiety and depression F41.9; F32.9 (1) Fracture of prosthetic hip Encounter type: initial encounter Qualified Code(s): T84.019A - Broken internal joint prosthesis, unspecified site, initial encounter; Z96.649 - Presence of unspecified artificial hip joint
[2019-10-02] MEDS ORDERED: ONDANSETRON INJ 2 MG/ML 2 ML VIAL IV PRN (23:11)
[2019-10-02] MEDS ORDERED: ALBUT/IPRATROP 3MG/0.5MG NEB 3 ML VIAL NEB PRN (23:46)
[2019-10-03] MEDS: carvediloL 6.25 MG TAB PO SCH ×3 (00:22→22:41)
[2019-10-03 02:50] LABS: Appearance Urine Clear (Clear); Bacteria Urine Automated Negative (Negative); Bilirubin Urine Negative (Negative); Blood Urine Negative (Negative); Color Urine Yellow; Glucose Urine UA Negative (Negative); Ketones Urine Negative (Negative); Leukocyte Esterase Urine Trace (Negative); Nitrite Urine Negative (Negative); Protein Urine Negative (Negative); RBC Urine Automated 0-4 /hpf (0-4); Specific Gravity Urine 1.016 (1.000-1.030); Urobilinogen Urine Negative (Negative)
[2019-10-03] MEDS: HYDROmorphone INJ 1 MG/ML SYRINGE IV PRN ×3 (05:37→14:33)
[2019-10-03 06:45] LABS: Basophils # (auto) 0.03 K/uL (0-0.2); Basophils % (auto) 0.5 %; Eosinophils # (auto) 0.09 K/uL (0-0.5); Eosinophils % (auto) 1.5 %; Hematocrit (blood only) 32.1 % (37-47); Hemoglobin 10.2 g/dL (12.0-16.0); Immature Granulocytes # (auto) 0.01 K/uL (0.00-0.02); Immature Granulocytes % (auto) 0.2 %; Lymphocytes # (auto) 1.32 K/uL (1.2-3.4); Lymphocytes % (auto) 21.5 %; Mean Corpuscular Hemoglobin 30.9 pg (25-34); Mean Corpuscular Hgb Conc 31.8 g/dL (32-36); Mean Corpuscular Volume 97.3 fL (80-100); Mean Platelet Volume 8.9 fL (7.4-10.4); Neutrophils % (auto) 63.3 %; Platelet Count 301 K/uL (130-400); RDW Coefficient of Variation 13.6 % (11.5-14.5); RDW Standard Deviation 48.1 fL (36.4-46.3); White Blood Count 6.15 K/uL (4.8-10.8)
--- NOTE | 2019-10-03 07:18 | XRay Report ---
XR chest 1V portable HISTORY: pre op COMPARISON: Chest 08/28/2019. FINDINGS: There are low lung volumes. The heart remains mildly enlarged. Spinal stimulator leads term inate at the T11 level. The lungs are clear. No pleural effusions. No pneumothorax. IMPRESSION: No significant change compared to the prior study. No acute process. Stable cardiomegaly. ACT 112: Negative or not required by law. Electronically signed by: Logan Soto M.D. 10/03/2019 7:16 AM
[2019-10-03 07:27] LABS: Albumin Level 2.9 gm/dl (3.4-5.0); BUN Creatinine Ratio 19.8 (10-20); Calcium 8.4 mg/dl (8.5-10.1); Creatinine Clr Calc Pharmacy 110.9 ml/min; Est GFR (African American) 107.8; Magnesium 2.4 mg/dl (1.8-2.4); Potassium 4.1 mmol/L (3.5-5.1)
--- NOTE | 2019-10-03 07:29 | History & Physical Report ---
Date of Service October 03, 2019 Assessment & Plan (1) Fracture of prosthetic hip: Discussed in detail with the patient that we will have to perform an open reduction internal fixation with exchange of hardware of her right hip. We will keep her non weight bearing or limited weight bearing post operatively. I discussed the risks, benefits, and alternatives to surgery with the patient and she has agreed to proceed with surgery. She will most likely stay at [facility] for a couple of days while stabilized. Most likely discharged to home or rehab facility. The assessment and surgical plan was discussed with Dr. Leon and her is in agreement to proceed. Present on Admission?: Yes Admission and Anticipated Discharge Date Admission Date: October 02, 2019 History of Present Illness Primary Care Provider: SARAH Moulton presented to [facility] on 10/02/19 with right hip pain. She is approximately 4-5 weeks post op right total hip replacement done by Dr. Leon. Post operatively and on subsequent follow ups she was doing very well. She was ambulating independently and was going through physical therapy. She states that she was getting into a chair yesterday and when she brought her right leg up and over she felt a crack and instant pain. After going to [facility] ER, xrays showed and acute yuri-prosthetic fracture of her right hip. She was stabilized, pain controlled, and admitted to the [facility] ortho floor. Allergies Allergy/AdvReac Type Severity Reaction Status Date / Time amoxicillin Allergy Mild RASH Verified 10/02/19 22:45 rofecoxib Allergy Unknown Unknown Verified 10/02/19 22:45 aspirin AdvReac Unknown PER Verified 10/02/19 22:45 PATIENT, LISTED B/C SHE HAS ASTHMA-CAN USE W/O ISSUES NO simvastatin AdvReac Unknown Muscle Pain Verified 10/02/19 22:45 Home Medications Home Medications Medication Instructions Recorded Confirmed Type albuterol sulfate 90 mcg/actuation 2 puff INHALATION Q6H PRN #18 gm 08/13/18 10/02/19 Rx aerosol inhaler budesonide-formoterol HFA 160 2 puff INHALATION BID 08/13/18 10/02/19 History mcg-4.5 mcg/actuation aerosol inhaler ipratropium 0.5 mg-albuterol 3 mg 3 ml INHALATION QID PRN #2 ml 08/13/18 10/02/19 History (2.5 mg base)/3 mL nebulization soln meclizine 25 mg tablet 25 mg PO TID PRN tab 08/13/18 10/02/19 History cyclobenzaprine 10 mg tablet See Rx Instructions .ROUTE 02/04/19 10/02/19 Rx .COMPLEX #90 tablet spironolactone 25 mg tablet See Rx Instructions .ROUTE 02/04/19 10/02/19 Rx .COMPLEX #30 tablet venlafaxine 150 mg See Rx Instructions .ROUTE 02/04/19 10/02/19 Rx capsule,extended release 24 hr .COMPLEX #30 capsule Oxygen Home #1 ea 02/20/19 08/28/19 History gabapentin 300 mg capsule See Rx Instructions .ROUTE 03/08/19 10/02/19 Rx .COMPLEX #180 capsule montelukast 10 mg tablet 10 mg PO QPM #90 tab 04/04/19 10/02/19 Rx diclofenac sodium 1 % topical gel 2 g TOPICAL QID PRN #300 gm 04/15/19 10/02/19 Rx atorvastatin 40 mg PO HS 08/21/19 10/02/19 History mirtazapine 30 mg PO HS 08/21/19 10/02/19 History pantoprazole [Protonix] 40 mg PO QAM 08/21/19 10/02/19 History lisinopril 20 mg tablet 20 mg PO DAILY #30 tab 09/02/19 10/02/19 Rx alprazolam 0.25 mg PO HS 09/06/19 10/02/19 History aspirin 81 mg PO BID 42 Days #0 tab 09/06/19 10/02/19 Rx carvedilol 6.25 mg tablet 6.25 mg PO BID #60 tab 09/23/19 10/02/19 Rx tramadol 50 mg tablet 50 - 100 mg PO HS #60 tab 09/24/19 10/02/19 Rx oxycodone-acetaminophen 5 mg-325 1 tab PO Q6H PRN #30 tab 09/30/19 10/02/19 Rx mg tablet buspirone 10 mg PO BID PRN 10/02/19 10/02/19 History celecoxib [Celebrex] 200 mg PO BID 10/02/19 10/02/19 History Past Med/Surg History Medical History Asthma STABLE Chronic obstructive pulmonary disease STABLE; ON O2 2L PRN ACTIVITY*-F/U DR CELIA JACOBS Congestive heart failure REMOTE-HX- STABLE AND CONTROLLED Depression GERD (gastroesophageal reflux disease) CONTROLLED Hiatal hernia Hypercholesteremia Hypertension Migraine HX Morbid obesity Pulmonary embolism ~2012- on AC x 1 year - then d/'edwardo - no issues since Sleep apnea CPAP, stopped 2017, couldn't war mask d/t anxiety SOBOE (shortness of breath on exertion) CHRONIC/MILD AND STABLE Surgical History H/O foot surgery History of bilateral carpal tunnel release History of esophagogastroduodenoscopy (EGD) History of right hip replacement (~08/2019) History of tonsillectomy and adenoidectomy History of total left hip replacement (~2017) Previous back surgery S/P insertion of spinal cord stimulator 2/2 LBP/RADICULOPATHY; PATIENT ADVISED TO BRING REMOTE AM DOS (OR NOTIFIED) Status post correction of deviated nasal septum Status post insertion of spinal cord stimulator Family History Father Prostate cancer Myocardial infarction Diabetes Mother Myocardial infarction Family/Other Heart disease Hypertension Other Family history non-contributory Denies family history of Ovarian cancer Breast cancer Colorectal cancer Social History Smoking Status: Never smoker Second Hand Exposure: No; Do You Dip or Chew Tobacco: No; Tobacco Cessation Education Requested by Patient: No Hx Alcohol Use: Yes Alcohol type: beer Hx Substance Use: No Preferred Language: Guamanian Communication Ability: Effective Visual Impairment: No Limitations Hearing Ability: Normal 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 Decreased ROM due to pain. Nuerovascularly intact right lower extremity. Skin: no rashes, warm and dry Results & Data Results & Data ([facility]) Vital Signs (Past 12 Hours) Vital Signs Temp Pulse Pulse Resp BP BP Pulse Ox 10/03/19 00:24 77 10/02/19 23:00 36.9 C 85 16 136/70 93 10/02/19 22:20 85 26 H 100 10/02/19 22:10 82 18 100 10/02/19 22:01 82 21 140/84 100 10/02/19 22:00 83 27 H 100 10/02/19 21:50 88 25 H 99 10/02/19 21:40 84 20 98 10/02/19 21:31 86 18 198/79 H 86 L 10/02/19 21:30 87 25 H 95 10/02/19 21:26 87 18 170/87 H 96 10/02/19 21:24 87 21 170/87 H 95 10/02/19 21:20 87 21 10/02/19 21:10 87 22 10/02/19 21:01 88 20 10/02/19 20:33 86 15 184/106 H 91 10/02/19 20:32 85 32 H 93 10/02/19 20:00 87 17 94 10/02/19 19:37 83 26 H 90 10/02/19 19:31 36.8 C 86 16 196/99 H 93 Code Status & VTE Plan VTE Prophylaxis Plan VTE Prophylaxis will be ordered: Yes Supervising Physician Co-Signing Physician Notes Adrian Diaz.O. (1) Fracture of prosthetic hip Encounter type: initial encounter Qualified Code(s): T84.019A - Broken internal joint prosthesis, unspecified site, initial encounter; Z96.649 - Presence of unspecified artificial hip joint
[2019-10-03 07:30] LABS: Albumin Globulin Ratio 0.9 (0.9-2); Bilirubin,Total 0.6 mg/dl (0.2-1); Globulin 3.3 gm/dl (2.5-4.0); Total Protein 6.2 gm/dl (6.4-8.2)
[2019-10-03] MEDS: HEPARIN SOD 5,000 UNIT/0.5 ML VIAL SQ SCH ×2 (07:42→22:41)
[2019-10-03] MEDS ORDERED: FLUTICASONE/VILANTEROL 100/25MCG 14 PUFFS/INHALER INH SCH (09:00)
[2019-10-03] MEDS ORDERED: PROPOFOL IV EMULSION 10 MG/ML 20 ML VIAL IV ONE (16:21)
[2019-10-03] MEDS ORDERED: ROCURONIUM BROMIDE 10 MG/ML 5 ML VIAL IV ONE (16:21)
[2019-10-03] MEDS ORDERED: ONDANSETRON INJ 2 MG/ML 2 ML VIAL ONE ×2 (16:21→21:34)
[2019-10-03] MEDS ORDERED: GLYCOPYRROLATE 0.2 MG/ML VIAL ONE ×2 (16:21→19:31)
[2019-10-03] MEDS ORDERED: LIDOCAINE HCL 2% 2 ML VIAL/AMP(20MG/ML) INFIL ONE (16:21)
[2019-10-03] MEDS ORDERED: NEOSTIGMINE METHYLSULFATE 5 MG/5 ML SYR ONE ×2 (16:21→19:31)
[2019-10-03] MEDS ORDERED: DEXAMETHASONE SOD INJ 4 MG/ML VIAL ONE (16:21)
[2019-10-03] MEDS ORDERED: HYDROmorphone INJ 2 MG/ML SYR/VIAL ONE (16:22)
[2019-10-03] MEDS ORDERED: MIDAZOLAM HCL 1 MG/ML 2ML VIAL ONE (16:22)
--- NOTE | 2019-10-03 16:22 | Hospitalist Progress Note ---
Date of Service October 03, 2019 Assessment & Plan (1) Fracture of prosthetic hip: 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 Admitted with a closed acute displaced periprosthetic fracture. - Plan for revision today with Dr. Leon. - Pain control - Zofran 4 mg IV every 6 hours PRN (2) History of right hip replacement: See above (3) Status post insertion of spinal cord stimulator: She reports that her will bring in device as needed to turn off spinal cord stimulator for surgery. (4) Hypercholesteremia: Resume atorvastatin 40 mg at bedtime after surgery. (5) Hypertension: Resume spironolactone and lisinopril post surgery. - Continue carvedilol 6.25 mg p.o. twice daily pre-and post surgery - Hold aspirin (6) Dependence on supplemental oxygen: Continue nasal cannula oxygen, with titration goal to 94 to 95% pulse ox. (7) GERD (gastroesophageal reflux disease): - Famotidine 20 mg IV every 12 hours (8) Chronic obstructive pulmonary disease: No shortness of breath at present. - Continue Symbicort 160/4.5, 2 puffs twice daily. - Duonebs every 4 hours as needed. (9) Anxiety and depression: - Resume alprazolam, buspirone, mirtazapine and gabapentin post surgery (10) DVT prophylaxis: SCDs - Will defer other prophylaxis to surgical team Admission and Anticipated Discharge Date Admission Date: October 02, 2019 Subjective Less pain in the leg today. Plan for surgery. Reports no fevers/chills, chest pain, shortness of breath, abdominal pain, nausea, or vomiting. Physical Exam Constitutional: WD/WN, vitals as above Eyes: EOM intact bilaterally; no conjunctival abnormality ENMT: external ear and nose normal, oropharynx normal Neck: trachea midline, no thyromegaly normal visual inspection Respiratory: normal respiratory effort, lungs clear to auscultation no respiratory distress Cardiovascular: RRR, no murmur, no edema Gastrointestinal (Abdomen): Inspection/Auscultation: abdomen normal to inspection; abdomen not distended Musculoskeletal: no cyanosis or clubbing, extremities motor strength 5/5 Extremities: extremities normal to inspection (Right leg in sling) Skin: no rashes, warm and dry Neurologic: moves all extremities and awake Psychiatric: Orientation: alert, oriented to person and cooperative Results & Data Results & Data ([facility]) Vital Signs (Past 12 Hours) Vital Signs Temp Pulse Resp BP Pulse Ox 10/03/19 15:06 37.0 C 68 17 124/66 95 10/03/19 07:20 36.8 C 66 16 110/65 95 PG Care Time/CCT Total # of Minutes Spent Total Time Spent with Patient: Total time spent is greater than 50% in coordination of care (as documented) at patient's floor/unit and/or counseling patient: Coding Level of Care Code 81873 Subseq Hosp Care Lvl 2 Diagnoses Fracture of prosthetic hip T84.019A; Z96.649 Encounter type: initial encounter History of right hip replacement Z96.641 Status post insertion of spinal cord stimulator Z98.890 Hypercholesteremia E78.00 Hypertension I10 Dependence on supplemental oxygen Z99.81 GERD (gastroesophageal reflux disease) K21.9 Chronic obstructive pulmonary disease J44.9 Anxiety and depression F41.9; F32.9 DVT prophylaxis Z29.9 (1) Fracture of prosthetic hip Encounter type: initial encounter Qualified Code(s): T84.019A - Broken internal joint prosthesis, unspecified site, initial encounter; Z96.649 - Presence of unspecified artificial hip joint
--- NOTE | 2019-10-03 16:29 | Anesthesiology Consultation ---
Date of Service October 03, 2019 Assessment & Plan Chart Review Chart Review: Acceptable Risk for Surgery and Patient NOT seen in Pre Admission Testing Consults Requested none History Surgery Operation Date: 10/03/19 09:00 Proposed Procedures p Right Femoral Implant Exchange - Oscar Leon DO Height/Weight Height: 5 ft 2 in Weight: 128 kg Allergies Allergy/AdvReac Type Severity Reaction Status Date / Time amoxicillin Allergy Mild RASH Verified 10/02/19 22:45 rofecoxib Allergy Unknown Unknown Verified 10/02/19 22:45 aspirin AdvReac Unknown PER Verified 10/02/19 22:45 PATIENT, LISTED B/C SHE HAS ASTHMA-CAN USE W/O ISSUES NO simvastatin AdvReac Unknown Muscle Pain Verified 10/02/19 22:45 Medications Home Medications Medication Instructions Recorded Confirmed Last Taken albuterol sulfate 90 mcg/actuation 2 puff INHALATION Q6H PRN #18 gm 08/13/18 10/02/19 09/06/19 05:00 aerosol inhaler budesonide-formoterol HFA 160 2 puff INHALATION BID 08/13/18 10/02/19 09/06/19 05:00 mcg-4.5 mcg/actuation aerosol inhaler ipratropium 0.5 mg-albuterol 3 mg 3 ml INHALATION QID PRN #2 ml 08/13/18 10/02/19 1 Month Ago (2.5 mg base)/3 mL nebulization ~08/06/19 soln meclizine 25 mg tablet 25 mg PO TID PRN tab 08/13/18 10/02/19 1 Month Ago ~08/06/19 cyclobenzaprine 10 mg tablet See Rx Instructions .ROUTE 02/04/19 10/02/19 09/05/19 21:00 .COMPLEX #90 tablet spironolactone 25 mg tablet See Rx Instructions .ROUTE 02/04/19 10/02/19 09/05/19 05:00 .COMPLEX #30 tablet venlafaxine 150 mg See Rx Instructions .ROUTE 02/04/19 10/02/19 09/06/19 05:00 capsule,extended release 24 hr .COMPLEX #30 capsule Oxygen Home #1 ea 02/20/19 08/28/19 Unknown gabapentin 300 mg capsule See Rx Instructions .ROUTE 03/08/19 10/02/19 09/06/19 05:00 .COMPLEX #180 capsule montelukast 10 mg tablet 10 mg PO QPM #90 tab 04/04/19 10/02/19 09/05/19 21:00 diclofenac sodium 1 % topical gel 2 g TOPICAL QID PRN #300 gm 04/15/19 10/02/19 1 Week Ago ~08/30/19 atorvastatin 40 mg PO HS 08/21/19 10/02/19 09/05/19 21:00 mirtazapine 30 mg PO HS 08/21/19 10/02/19 09/05/19 21:00 pantoprazole [Protonix] 40 mg PO QAM 08/21/19 10/02/19 09/06/19 05:00 lisinopril 20 mg tablet 20 mg PO DAILY #30 tab 09/02/19 10/02/19 09/05/19 05:00 alprazolam 0.25 mg PO HS 09/06/19 10/02/19 09/05/19 21:00 aspirin 81 mg PO BID 42 Days #0 tab 09/06/19 10/02/19 Unknown carvedilol 6.25 mg tablet 6.25 mg PO BID #60 tab 09/23/19 10/02/19 Unknown tramadol 50 mg tablet 50 - 100 mg PO HS #60 tab 09/24/19 10/02/19 Unknown oxycodone-acetaminophen 5 mg-325 1 tab PO Q6H PRN #30 tab 09/30/19 10/02/19 Unknown mg tablet buspirone 10 mg PO BID PRN 10/02/19 10/02/19 Unknown celecoxib [Celebrex] 200 mg PO BID 10/02/19 10/02/19 Unknown Active Medications Generic Name Dose Route Start Last Admin Trade Name Freq PRN Reason Stop Dose Admin Carvedilol 6.25 mg 10/02/19 23:11 10/03/19 07:41 Coreg PO 11/01/19 23:10 6.25 mg BID MEAGHAN Administration Fluticasone/Vilanterol 1 puffs 10/03/19 09:00 10/03/19 07:41 Breo Ellipta 100/25 Mcg Inh INH 11/02/19 08:59 1 puffs DAILY MEAGHAN Administration Heparin Sodium (Porcine) 5,000 units 10/03/19 09:00 07/23/20 07:42 Heparin Sodium (Porcine) SQ 11/02/19 08:59 Not Given Q12 MEAGHAN Hydromorphone HCl 1 mg 10/02/19 23:15 10/03/19 14:33 Dilaudid IV 10/16/19 23:14 1 mg Q3H PRN Administration Severe Pain NPO Date Last Intake of Fluids: 10/03/19 Time Last Intake of Fluids: 07:30 Last Intake of Fluids Comment: Sip of water with am med Date Last Intake of Solids: 10/03/19 Time Last Intake of Solids: 00:00 Past Medical History Medical History Anxiety and depression Asthma STABLE Chronic obstructive pulmonary disease STABLE; ON O2 2L PRN ACTIVITY*-F/U DR CELIA JACOBS Congestive heart failure REMOTE-HX- STABLE AND CONTROLLED Depression GERD (gastroesophageal reflux disease) CONTROLLED Hiatal hernia Hypercholesteremia Hypertension Migraine HX Morbid obesity Pulmonary embolism ~2012- on AC x 1 year - then d/'edwardo - no issues since Sleep apnea CPAP, stopped 2017, couldn't war mask d/t anxiety SOBOE (shortness of breath on exertion) CHRONIC/MILD AND STABLE Exercise / Class Metabolic Activity III < 4 Walking/Shop/Light housework Past Family History Family History Father Prostate cancer Myocardial infarction Diabetes Mother Myocardial infarction Family/Other Heart disease Hypertension Other Family history non-contributory Denies family history of Ovarian cancer Breast cancer Colorectal cancer Past Surgical History Surgical History H/O foot surgery History of bilateral carpal tunnel release History of esophagogastroduodenoscopy (EGD) History of right hip replacement (~08/2019) History of tonsillectomy and adenoidectomy History of total left hip replacement (~2017) Previous back surgery S/P insertion of spinal cord stimulator 2/2 LBP/RADICULOPATHY; PATIENT ADVISED TO BRING REMOTE AM DOS (OR NOTIFIED) Status post correction of deviated nasal septum Status post insertion of spinal cord stimulator Past Anesthesia History No Hx of Anesthesia Complications and No Family Hx of Anesthesia Complications History of PONV No Hx of PONV and No Hx of Motion Sickness Social History Smoking Status: Never smoker Do You Dip or Chew Tobacco: No Hx Alcohol Use: Yes Alcohol type: beer alcohol intake frequency: a few times a week Hx Substance Use: No Physical Exam Vital Signs Last Vital Signs Temp 37.0 C 10/03/19 15:06 Pulse 68 10/03/19 15:06 Resp 17 10/03/19 15:06 BP 124/66 10/03/19 15:06 Pulse Ox 95 10/03/19 15:06 Testing Laboratory Results 10/03/19 06:30 10/03/19 06:30 PT 10.1 Seconds (9.0-12.0) 10/02/19 21:02 INR 1.0 (0.9-1.1) 10/02/19 21:02 APTT 26.5 Seconds (21.0-31.0) 10/02/19 21:02 Urine Color Yellow 10/03/19 02:30 Urine Appearance Clear (Clear) 10/03/19 02:30 Urine pH 5.0 (4.5-7.5) 10/03/19 02:30 Ur Specific [place] 1.016 (1.000-1.030) 10/03/19 02:30 Urine Protein Negative (Negative) 10/03/19 02:30 Urine Glucose (UA) Negative (Negative) 10/03/19 02:30 Urine Ketones Negative (Negative) 10/03/19 02:30 Urine Nitrite Negative (Negative) 10/03/19 02:30 Ur Leukocyte Esterase Trace (Negative) H 10/03/19 02:30 Urine WBC (Auto) 1-5 /hpf (0-5) 10/03/19 02:30 Urine RBC (Auto) 0-4 /hpf (0-4) 10/03/19 02:30 U Hyaline Cast (Auto) 1-5 /lpf (0-5) 10/03/19 02:30 U Epithel Cells (Auto) 5-10 /lpf (0-5) H 10/03/19 02:30 Urine Bacteria (Auto) Negative (Negative) 10/03/19 02:30 Blood Type A Positive 10/02/19 21:02 Antibody Screen NEGATIVE 10/02/19 21:02 Electrocardiogram Date: 10/02/19 HR 87 Poor data quality, interpretation may be adversely affected Accelerated Junctional rhythm Junctional ST depression, probably normal Abnormal ECG When compared with ECG of 19-JAN-2017 09:27, Junctional rhythm has replaced Sinus rhythm Chest X-Ray Date: 10/02/19 XR chest 1V portable HISTORY: pre op COMPARISON: Chest 08/28/2019. FINDINGS: There are low lung volumes. The heart remains mildly enlarged. Spinal stimulator leads terminate at the T11 level. The lungs are clear. No pleural effusions. No pneumothorax. IMPRESSION: No significant change compared to the prior study. No acute process. Stable cardiomegaly.
[2019-10-03] MEDS ORDERED: BACITRACIN INJ 50,000 UNIT VIAL ONE (16:45)
[2019-10-03] MEDS ORDERED: BUPIVACAINE/EPINEPHRINE 0.5% MPF 1:200,000 10 ML VIAL ONE (16:45)
--- NOTE | 2019-10-03 16:54 | History & Physical Bridge Note ---
Date of Service October 03, 2019 History & Physical Bridge Note I have examined the patient, reviewed the History & Physical and in the interval since the performance of the History & Physical I have noted the following changes of clinical significance: no changes noted
[2019-10-03] MEDS ORDERED: CEFAZOLIN 250 MG/ML 1 GM VIAL ONE (17:47)
[2019-10-03] MEDS ORDERED: LABETALOL HCL IV 5 MG/ML 20ML IV ONE (17:58)
[2019-10-03] MEDS ORDERED: fentaNYL citrate 100 MCG/2 ML VIAL IV PRN (18:32)
[2019-10-03] MEDS ORDERED: ATROPINE SULFATE 0.1 MG/ML 10ML SYR IV PRN (18:32)
[2019-10-03] MEDS ORDERED: ePHEDrine sulfate 50 MG/ML AMP IV PRN (18:32)
[2019-10-03] MEDS ORDERED: ONDANSETRON INJ 2 MG/ML 2 ML VIAL IV PRN ×2 (18:32→22:36)
[2019-10-03] MEDS ORDERED: SODIUM CHLORIDE 0.9% 250 ML IV PRN (19:13)
[2019-10-03] MEDS ORDERED: ALBUMIN HUMAN 5% 12.5 GM/250 ML VIAL IV ONE (19:18)
[2019-10-03 19:22] LABS: Basophils # (auto) 0.02 K/uL (0-0.2); Basophils % (auto) 0.2 %; Eosinophils # (auto) 0.05 K/uL (0-0.5); Eosinophils % (auto) 0.5 %; Hematocrit (blood only) 30.1 % (37-47); Hemoglobin 9.5 g/dL (12.0-16.0); Immature Granulocytes # (auto) 0.02 K/uL (0.00-0.02); Immature Granulocytes % (auto) 0.2 %; Lymphocytes # (auto) 0.98 K/uL (1.2-3.4); Lymphocytes % (auto) 9.8 %; Mean Corpuscular Hemoglobin 30.5 pg (25-34); Mean Corpuscular Volume 96.8 fL (80-100); Mean Platelet Volume 9.1 fL (7.4-10.4); Monocytes # (auto) 0.33 K/uL (0.11-0.59); Monocytes % (auto) 3.3 %; Neutrophils # (auto) 8.55 K/uL (1.4-6.5); Platelet Count 299 K/uL (130-400); RDW Coefficient of Variation 13.7 % (11.5-14.5); RDW Standard Deviation 48.4 fL (36.4-46.3); Red Blood Count 3.11 M/uL (4.2-5.4); White Blood Count 9.95 K/uL (4.8-10.8)
--- NOTE | 2019-10-03 19:35 | XRay Report ---
XR hip RT 1V HISTORY: 64 years-old Female XRAY TO BE DONE IN OR RT PERIPROSTHETIC FX right hip total joint arthro plasty COMPARISON: Right femur radiographs 10/02/2019 at 8:06 PM TECHNIQUE: Crosstable lateral view of the right hip FINDINGS: Crosstable lateral view demonstrates right hip total joint arthroplasty revision with placement of an elongated femoral stem. Acute fracture of the proximal femur involving the lesser trochanter is rede monstrated. Expected postsurgical soft tissue swelling and deep tissue air. IMPRESSION: Satisfactory alignment of the right hip total joint arthroplasty. ACT 112: Negative or not required by law. The above report was generated using voice recognition software. It may contain grammatical, syntax o r spelling errors. Electronically signed by: Darci Rodriguez M.D. 10/03/2019 7:33 PM
[2019-10-03 20:02] LABS: Mean Corpuscular Hgb Conc 31.6 g/dL (32-36)
[2019-10-03] MEDS ORDERED: fentaNYL citrate 100 MCG/2 ML VIAL ONE ×2 (20:33→21:46)
--- NOTE | 2019-10-03 20:53 | Operative Report ---
PG Post Operative Report Pre & Post Diagnosis Operation Date: 10/03/19 09:00 Pre-Op Diagnosis: RIGHT HIP PERIPROSTHETIC FRACTURE Post-Op Diagnosis: RIGHT HIP PERIPROSTHETIC FRACTURE I identified the patient and participated in the time-out.: Yes Procedure Operation Date: 10/03/19 09:00 Actual Procedures Revision of the femoral stem, with open reduction internal fixation of the right lesser trochanter as a distinct and separate procedure (modifier 59). (Right) - Oscar Leon DO Modifier 22: This case took more than 50% longer than a standard revision hip replacement due to the patient's size with a BMI of 51.6. Surgeon Oscar Leon DO Product Safety Manager Oscar So PAC Estimated Blood Loss 500 Findings Consistent with Post-Op Diagnosis Specimens None Complications none Disposition Disposition: Recovery Room Indications Oralia is a pleasant 64-year-old female who is about 4 weeks out from a right total hip arthroplasty. She was initially doing very well with her right hip. She was having almost no pain was very happy with it. Unfortunately she fell out of bed late last night and had severe increase of right hip pain. She came to the emergency room and radiographs demonstrated a periprosthetic femur fracture. She was admitted to the hospital service. After discussions at bedside, she elected proceed with a revision of the femoral component with open reduction internal fixation of the lesser trochanter. Description of Procedure Implants used: I used a Biomet Lily modular hip stem with a size 14 STS distal stem, a size A 80 cone, and a 28 x 50 mm dual mobility head with a +0 neck. On October 03, 2019 she came down from the hospital room to the preoperative holding area. The operative extremity was identified and signed. She was given preoperative antibiotic. She was then taken back to the operating room and laid on the table in supine position. She was put under general anesthesia. She was then put into the lateral decubitus position. The right hip was then prepped and draped in sterile fashion. A timeout was done. The patient and the operative extremity was properly identified. A lateral approach was used. The previous incision was opened back up and extended both proximally and distally. There was no signs of infection. There was a small seroma that was removed. Dissection was taken down to the fascia. The fascia had healed nicely. The fascia was incised along the previous incision. The abductors were mostly torn back off of the greater trochanter. The wounds then irrigated. The hip was then dislocated. The femoral head and stem were easily removed. A single Arthrex fiber tape cerclage suture was placed distal to the fracture to keep any fracture lines from propagating. Sequential reaming of the femoral canal was done up to a size 14 reamer. I was able to get a definitive stop with a 14 reamer. The size 14 Lily STS distal stem was then impacted into place. A size a metaphyseal cone was reamed. The final size a 80 cone was then impacted into place and screwed. A +0 neck was trialed. The hip was then reduced. A single flat plate x-ray was taken. I was happy with the overall alignment. The hip was then dislocated. The final 28 mm dual mobility head with a +0 neck was then impacted onto the femoral stem. The hip was then reduced. The hip was brought through a full range of motion and felt to be stable. The lesser trochanter was then fixated back to the proximal femur with 3 Arthrex fiber tape cerclage sutures. This gave excellent fixation of the lesser trochanteric fragment. The hip was brought through a full range of motion and everything was felt to be stable. A 3-minute Betadine lavage was then done. The wound was then irrigated once again. The fascia was then closed with #1 Vicryl. Deep fat layer was closed with #1 Vicryl. Intermediate fat layer was closed with 2-0 Vicryl. Skin was then closed with 2-0 Vicryl and brad. A Amina VAC dressing was then placed. She was then extubated and transferred to a hospital bed. She was taken to the postanesthesia care unit in stable condition. She tolerated the procedure well. Oscar So PA-C, was present for the entire procedure. He was critical for patient positioning, prepping, draping, retraction exposure, wound closure and application of sterile dressing. I attest to the content of the Intraoperative Record and any orders documented therein. Any exceptions are noted below.
[2019-10-03] MEDS: HYDROmorphone INJ 2 MG/ML SYR/VIAL IV PRN ×4 (21:17→21:32)
[2019-10-03] MEDS ORDERED: HYDROmorphone INJ 1 MG/ML SYRINGE ONE ×2 (21:17→21:27)
--- NOTE | 2019-10-03 21:56 | Anesthesiology Progress Note ---
Date of Service October 03, 2019 Anesthesia Post Procedure Vital Signs Vital Signs: Temp Pulse Pulse Pulse Resp BP BP 10/03/19 21:30 66 18 116/56 L 10/03/19 21:20 71 18 135/66 10/03/19 21:10 37.0 C 60 18 115/62 10/03/19 15:06 37.0 C 68 17 10/03/19 07:20 36.8 C 66 16 10/03/19 00:24 77 10/02/19 23:00 36.9 C 85 16 10/02/19 22:20 85 26 H 10/02/19 22:10 82 18 10/02/19 22:01 82 21 140/84 10/02/19 22:00 83 27 H BP Pulse Ox 10/03/19 21:30 100 10/03/19 21:20 100 10/03/19 21:10 100 10/03/19 15:06 124/66 95 10/03/19 07:20 110/65 95 10/03/19 00:24 10/02/19 23:00 136/70 93 10/02/19 22:20 100 10/02/19 22:10 100 10/02/19 22:01 100 10/02/19 22:00 100 Pain Intensity Right Hip: Pain Intensity: 7 Transfer of Care Handoff Completed per policy Notes Mental Status: alert / awake / arousable and participated in evaluation Patient Amnestic to Procedure: Yes Nausea / Vomiting: adequately controlled Pain: adequately controlled Airway Patency, RR, SpO2: stable & adequate BP & HR: stable & adequate Hydration State: stable & adequate Anesthetic Complications: no major complications apparent and Pt Satisfied with anesthetic care
--- NOTE | 2019-10-03 22:35 | Electrocardiogram Report ---
Test Reason : Blood Pressure : / mmHG Vent. Rate : 087 BPM Atrial Rate : 087 BPM P-R Int : 000 ms QRS Dur : 086 ms QT Int : 350 ms P-R-T Axes : 000 015 066 degrees QTc Int : 421 ms Poor data quality, interpretation may be adversely affected Sinus rhythm When compared with ECG of 19-JAN-2017 09:27, Artifact is now present Confirmed by Brad Lopse ([id number]) on 10/03/2019 10:35:09 PM Referred By: REFERRED SELF Confirmed By:Brad Lopes
[2019-10-03] MEDS ORDERED: bisacodyL 10 MG SUPP PR PRN (22:36)
[2019-10-03] MEDS ORDERED: ALBUT/IPRATROP 3MG/0.5MG NEB 3 ML VIAL INH PRN (22:36)
[2019-10-03] MEDS ORDERED: NALOXONE HCL 0.4 MG/1 ML VIAL/CARP IV PRN (22:36)
[2019-10-03] MEDS ORDERED: SODIUM CHLORIDE 0.9% 1000ML 1,000 ML IV SCH (22:36)
[2019-10-03] MEDS ORDERED: HYDROmorphone INJ 0.5 MG/0.5 ML SYR IV PRN (22:36)
[2019-10-03] MEDS ORDERED: ATORVASTATIN 40 MG TAB PO SCH (22:36)
[2019-10-03] MEDS ORDERED: MAGNESIUM HYDROXIDE SUSP 30 ML UDC PO PRN (22:36)
[2019-10-03] MEDS ORDERED: METOCLOPRAMIDE HCL INJ 5 MG/ML 2 ML VIAL IV PRN (22:36)
[2019-10-03] MEDS ORDERED: ALBUTEROL HFA 8 GM INHALER INH PRN (22:36)
[2019-10-03] MEDS ORDERED: VANCOMYCIN CONSULT ACTIVE PRN (22:36)
[2019-10-03] MEDS ORDERED: MECLIZINE HCL 25 MG TAB PO PRN (22:51)
[2019-10-03] MEDS: ASPIRIN 81 MG ECTAB PO SCH (23:24)
[2019-10-03] MEDS: DOCUSATE SODIUM 100 MG CAP PO SCH (23:24)
[2019-10-03] MEDS: MIRTAZAPINE TAB 15 MG TAB PO SCH (23:25)
[2019-10-03] MEDS: SENNA 8.6 MG TAB PO SCH (23:25)
[2019-10-03] MEDS: MONTELUKAST SODIUM 10 MG TABLET PO SCH (23:25)
[2019-10-03] MEDS: GABAPENTIN 300 MG CAP PO SCH (23:25)
[2019-10-03] MEDS: ACETAMINOPHEN 500 MG TAB PO SCH (23:26)
[2019-10-03] MEDS: ALPRAZolam 0.25 MG TABLET PO SCH (23:26)
[2019-10-03] MEDS: KETOROLAC TROMETHAMINE 15 MG/ML VIAL IV SCH (23:26)
[2019-10-04] MEDS ORDERED: VANCOMYCIN HCL 2,000 MG in SODIUM CHLORIDE 0.9% 500 ML IV SCH
[2019-10-04] MEDS ORDERED: CYCLOBENZAPRINE HCL 10 MG TAB PO PRN ×2 (00:15→09:00)
[2019-10-04] MEDS: ACETAMINOPHEN 500 MG TAB PO SCH ×3 (05:20→22:36)
[2019-10-04] MEDS: KETOROLAC TROMETHAMINE 15 MG/ML VIAL IV SCH ×4 (05:20→22:36)
[2019-10-04 05:47] LABS: Basophils # (auto) 0.01 K/uL (0-0.2); Basophils % (auto) 0.1 %; Hematocrit (blood only) 24.4 % (37-47); Hemoglobin 7.7 g/dL (12.0-16.0); Immature Granulocytes # (auto) 0.01 K/uL (0.00-0.02); Immature Granulocytes % (auto) 0.1 %; Lymphocytes # (auto) 0.71 K/uL (1.2-3.4); Lymphocytes % (auto) 8.1 %; Mean Corpuscular Hemoglobin 30.8 pg (25-34); Mean Corpuscular Hgb Conc 31.6 g/dL (32-36); Mean Corpuscular Volume 97.6 fL (80-100); Mean Platelet Volume 9.1 fL (7.4-10.4); Monocytes # (auto) 0.73 K/uL (0.11-0.59); Monocytes % (auto) 8.3 %; Neutrophils # (auto) 7.29 K/uL (1.4-6.5); Neutrophils % (auto) 83.4 %; Platelet Count 295 K/uL (130-400); RDW Coefficient of Variation 13.5 % (11.5-14.5); RDW Standard Deviation 48.2 fL (36.4-46.3); White Blood Count 8.75 K/uL (4.8-10.8)
[2019-10-04 06:21] LABS: RBC Morphology Unremarkable
--- NOTE | 2019-10-04 07:41 | XRay Report ---
AP PELVIS, CROSSTABLE LATERAL RIGHT HIP History: Right total hip arthroplasty. Degenerative arthritis. Postop. FINDINGS: The patient is status post a right total hip arthroplasty. The hardware is intact. Abnormal lucency through the medial side of the proximal residual femur. This is consistent with the patient' s known fracture. The alignment has improved. Old right pubic ring fracture is again noted. Skin stap les are in place. IMPRESSION: Right total hip arthroplasty. No evidence for hardware complication. There is near-anatomic alignment of the residual fracture at the proximal femur. ACT 112: Negative or not required by law. Electronically signed by: Logan Soto M.D. 10/04/2019 7:39 AM
[2019-10-04] MEDS: GABAPENTIN 300 MG CAP PO SCH ×2 (08:52→20:58)
[2019-10-04] MEDS: MULTIVITAMIN TAB PO SCH (08:52)
[2019-10-04] MEDS: DOCUSATE SODIUM 100 MG CAP PO SCH ×2 (08:52→20:58)
[2019-10-04] MEDS: ASPIRIN 81 MG ECTAB PO SCH ×2 (08:52→20:58)
[2019-10-04] MEDS: PANTOprazole 40 MG TAB PO SCH (08:53)
[2019-10-04] MEDS: VENLAFAXINE HCL XR 150 MG CAPXR PO SCH (08:53)
[2019-10-04] MEDS: OXYCODONE HCL IR 5 MG TAB (IMMEDIATE RELEASE) PO PRN ×2 (08:56→15:43)
[2019-10-04] MEDS ORDERED: VANCOMYCIN HCL 1,500 MG in SODIUM CHLORIDE 0.9% 500 ML IV SCH (09:00)
[2019-10-04] MEDS ORDERED: lisinopriL 20 MG TAB PO SCH (09:00)
[2019-10-04] MEDS ORDERED: SPIRONOLACTONE 25 MG TAB PO SCH (09:00)
--- NOTE | 2019-10-04 15:55 | Orthopedic Progress Note ---
Date of Service October 04, 2019 Assessment & Plan (1) Fracture of prosthetic hip: Overall she is doing fairly well. She was seen by physical therapy and Occupational Therapy today. She was able to do her transfers and get up on the side of the bed. She said she did well with therapy. She is not having too much pain. She is on aspirin twice a day for DVT prophylaxis. I have her on vancomycin every 12 hours to prevent any type of hip infection. She is not currently infected but i due to the size of the incision as well as the body habitus of the patient, I want to do everything I can to prevent an infection around the hip. I am okay if we switch from vancomycin to daptomycin. She is a little bit anemic but she is relatively asymptomatic. The hospitalist will place her on some iron and will see an H&H tomorrow. If her H&H does drop any lower than I do recommend transfusion. She will be nonweightbearing on the right leg for close to 3 months. I did give a prescription for a hospital bed to be delivered to her house. She will definitely need a hospital bed as she will be unable to go up and down stairs to the bedroom in her house and she needs to the adjustability of the hospital bed to accommodate her limited motion and mobility. She has expressed interest to me in being discharged home. We will continue to see how she does. She will probably stay with us all day tomorrow and possibly be discharged on Monday. Present on Admission?: Yes Subjective Oralia was seen and examined at bedside. Overall she is doing fairly well. She is having too much pain in the right hip. She is happy the procedure was over. She is comfortable and has no complaints. Physical Exam Musculoskeletal: On physical examination of the right hip, the Amina VAC dressing is to suction. Her leg lengths are equal. She has active dorsiflexion and plantarflexion of the right ankle. Results & Data ([facility]) Vital Signs (Past 12 Hours) Vital Signs Temp Pulse Resp BP Pulse Ox 10/04/19 15:50 81 15 104/64 97 10/04/19 15:27 37.2 C 83 17 97/60 L 93 10/04/19 12:28 37 C 86 18 104/63 94 10/04/19 07:37 37.1 C 81 18 131/77 97 Laboratory Results H & H 10/02/19 10/03/19 10/03/19 Range/Units 21:02 06:30 19:14 Hgb 11.7 L 10.2 L 9.5 L (12.0-16.0) g/dL Hct 37.6 32.1 L 30.1 L (37-47) % 10/04/19 Range/Units 05:21 Hgb 7.7 L (12.0-16.0) g/dL Hct 24.4 L (37-47) % Coagulation 10/02/19 Range/Units 21:02 INR 1.0 (0.9-1.1) Diagnostic Findings Postoperative x-rays of the right hip show the fracture to be in anatomic alignment. The hardware appears to be in good alignment as well. I will see any evidence of dislocation. PG Care Time/CCT Total # of Minutes Spent Total Time Spent with Patient: Total time spent is greater than 50% in coordination of care (as documented) at patient's floor/unit and/or counseling patient: Coding Level of Care Code None Diagnoses Fracture of prosthetic hip T84.019A; Z96.649 Encounter type: initial encounter (1) Fracture of prosthetic hip Encounter type: initial encounter Qualified Code(s): T84.019A - Broken internal joint prosthesis, unspecified site, initial encounter; Z96.649 - Presence of unspecified artificial hip joint
--- NOTE | 2019-10-04 16:25 | Hospitalist Progress Note ---
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 Admitted with a closed acute displaced periprosthetic fracture. - Revision with Dr. Leon on 10/02. - Pain control - Zofran 4 mg IV every 6 hours PRN - Continue abx for now per orthopedics. Will switch to daptomycin for easier dosing. (2) History of right hip replacement: See above (3) Status post insertion of spinal cord stimulator: She reports that her will bring in device as needed to turn off spinal cord stimulator for surgery. (4) Hypercholesteremia: Hold atorvastatin while on daptomycin. (5) Hypertension: Resume spironolactone and lisinopril post surgery. - Continue carvedilol 6.25 mg p.o. twice daily pre-and post surgery - Hold aspirin (6) Dependence on supplemental oxygen: Continue nasal cannula oxygen, with titration goal to 94 to 95% pulse ox. (7) GERD (gastroesophageal reflux disease): - Famotidine 20 mg IV every 12 hours (8) Chronic obstructive pulmonary disease: No shortness of breath at present. - Continue Symbicort 160/4.5, 2 puffs twice daily. - Duonebs every 4 hours as needed. (9) Anxiety and depression: - Resume alprazolam, buspirone, mirtazapine and gabapentin post surgery (10) DVT prophylaxis: SCDs - Will defer other prophylaxis to surgical team Admission and Anticipated Discharge Date Admission Date: October 02, 2019 Subjective No major concerns today. The right leg is actually less painful than she anticipated. Reports no fevers/chills, chest pain, shortness of breath, abdominal pain, nausea, or vomiting. Physical Exam Constitutional: WD/WN, vitals as above Eyes: EOM intact bilaterally; no conjunctival abnormality ENMT: external ear and nose normal, oropharynx normal Neck: trachea midline, no thyromegaly normal visual inspection Respiratory: normal respiratory effort, lungs clear to auscultation no respiratory distress Cardiovascular: RRR, no murmur, no edema Gastrointestinal (Abdomen): Inspection/Auscultation: abdomen normal to inspection; abdomen not distended Musculoskeletal: no cyanosis or clubbing, extremities motor strength 5/5 Extremities: extremities normal to inspection (Right leg with wound vac in 2 spots.) Skin: no rashes, warm and dry Neurologic: moves all extremities and awake Psychiatric: Orientation: alert, oriented to person and cooperative Results & Data Results & Data ([facility]) Vital Signs (Past 12 Hours) Vital Signs Temp Pulse Resp BP Pulse Ox 10/04/19 15:50 81 15 104/64 97 10/04/19 15:27 37.2 C 83 17 97/60 L 93 10/04/19 12:28 37 C 86 18 104/63 94 10/04/19 07:37 37.1 C 81 18 131/77 97 PG Care Time/CCT Total # of Minutes Spent Total Time Spent with Patient: Total time spent is greater than 50% in coordination of care (as documented) at patient's floor/unit and/or counseling patient: Coding Level of Care Code 08242 Subseq Hosp Care Lvl 2 Diagnoses Fracture of prosthetic hip T84.019A; Z96.649 Encounter type: initial encounter History of right hip replacement Z96.641 Status post insertion of spinal cord stimulator Z98.890 Hypercholesteremia E78.00 Hypertension I10 Dependence on supplemental oxygen Z99.81 GERD (gastroesophageal reflux disease) K21.9 Chronic obstructive pulmonary disease J44.9 Anxiety and depression F41.9; F32.9 DVT prophylaxis Z29.9 (1) Fracture of prosthetic hip Encounter type: initial encounter Qualified Code(s): T84.019A - Broken internal joint prosthesis, unspecified site, initial encounter; Z96.649 - Prese nce of unspecified artificial hip joint
[2019-10-04] MEDS ORDERED: DAPTOmycin 325 MG in SYRINGE 0 ML IV ONE (16:27)
[2019-10-04] MEDS ORDERED: DAPTOMYCIN CONSULT ACTIVE PRN (16:27)
[2019-10-04] MEDS ORDERED: NORMOSOL-R 500 ML IV ONE (17:09)
[2019-10-04] MEDS: IRON SUCROSE 300 MG in SODIUM CHLORIDE 0.9% 250 ML IV SCH (17:11)
[2019-10-04] MEDS ORDERED: LACTATED RINGER'S 1,000 ML IV ONE (20:30)
[2019-10-04] MEDS ORDERED: LACTATED RINGER'S 500 ML IV ONE (20:35)
--- NOTE | 2019-10-04 20:41 | Communication Note ---
Date of Service: October 04, 2019 Notified that pt was still hypotensive after a 500ml Normosol bolus. Asymptomatic except pt states she feels tired. Stat H/H ordered and an additional 500ml bolus of LR ordered. Morning spironolactone and lisinopril HELD. Hgb critical value of 6.6 down from 7.7 earlier today. Pt transfused 2U pRBCs with H/H re-check with morning labs. Resident Activity Tracking Resident Involvement: Sighter Coverage Note Care Provided: Adult Hospital Medicine
[2019-10-04] MEDS: SENNA 8.6 MG TAB PO SCH (20:58)
[2019-10-04] MEDS: MIRTAZAPINE TAB 15 MG TAB PO SCH (20:58)
[2019-10-04] MEDS: ALPRAZolam 0.25 MG TABLET PO SCH (20:58)
[2019-10-04] MEDS: MONTELUKAST SODIUM 10 MG TABLET PO SCH (20:58)
[2019-10-04 21:10] LABS: Hematocrit (blood only) 20.3 % (37-47); Hemoglobin 6.6 g/dL (12.0-16.0)
[2019-10-04] MEDS ORDERED: SODIUM CHLORIDE 0.9% 250 ML IV PRN (21:13)
[2019-10-05] MEDS ORDERED: ALBUMIN 25% 50 ML IV ONE (00:18)
[2019-10-05] MEDS ORDERED: ALBUMIN 25% 50 ML IV SCH (00:45)
[2019-10-05] MEDS: KETOROLAC TROMETHAMINE 15 MG/ML VIAL IV SCH ×2 (05:26→10:34)
[2019-10-05] MEDS: ACETAMINOPHEN 500 MG TAB PO SCH ×3 (05:27→21:20)
[2019-10-05 07:17] LABS: Basophils # (auto) 0.02 K/uL (0-0.2); Basophils % (auto) 0.2 %; Eosinophils # (auto) 0.08 K/uL (0-0.5); Eosinophils % (auto) 0.9 %; Hematocrit (blood only) 24.3 % (37-47); Hemoglobin 8.1 g/dL (12.0-16.0); Immature Granulocytes # (auto) 0.02 K/uL (0.00-0.02); Immature Granulocytes % (auto) 0.2 %; Lymphocytes % (auto) 14.6 %; Mean Corpuscular Hemoglobin 31.4 pg (25-34); Mean Corpuscular Hgb Conc 33.3 g/dL (32-36); Mean Corpuscular Volume 94.2 fL (80-100); Mean Platelet Volume 9.2 fL (7.4-10.4); Monocytes # (auto) 1.29 K/uL (0.11-0.59); Monocytes % (auto) 14.5 %; Neutrophils # (auto) 6.19 K/uL (1.4-6.5); Neutrophils % (auto) 69.6 %; Platelet Count 211 K/uL (130-400); Red Blood Count 2.58 M/uL (4.2-5.4)
--- NOTE | 2019-10-05 07:20 | Orthopedic Progress Note ---
Date of Service October 05, 2019 Assessment & Plan (1) Fracture of prosthetic hip: We will continue to monitor her closely. We will check her H&H this morning. We do 1 to make sure she is hemodynamically stable before discharge. She will have the Amina VAC dressing on her right hip for a total 7 days. She is on aspirin for DVT prophylaxis. I am a little nervous to put her on a heavier dose of anticoagulant due to the possibility of wound complications. She is getting IV daptomycin to prophylactically treat any possibility of wound site infection. She will remain on that throughout her hospital stay. She is nonweightbearing on her right hip and will be nonweightbearing for about 3 months. She is orthopedically stable for discharge when medically ready, however, will probably be in a couple of days. Present on Admission?: Yes Larry Barton was seen and examined at bedside this morning. She was feeling lethargic and nauseous yesterday. Her H&H was dropping some. Unfortunately she became a little bit more hypotensive. She had a 500 cc bolus of fluid and was continuing to be symptomatic. An H&H was drawn and showed that she was fairly anemic. She was then transfused 2 units of packed red blood cells and transferred to the PCU floor. This morning she is feeling much better. She says she is not in much pain and the lethargy and nausea has subsided. Her morning labs are not back yet. She did need a total of 4 units of packed red blood cells when I did her left hip replacement about 2 years ago. She did not require a transfusion after her right hip replacement done a month ago. I would not be surprised if she would require another 2 units of packed red blood cells over the next 24 hours. She is interested in being discharged home so I want to make sure she is hemody namically stable before we do that. Physical Exam Musculoskeletal: On physical examination of the right hip, her leg lengths are equal. She has active dorsiflexion and plantarflexion of the right ankle. Her Amina VAC dressing is to suction and there is no drainage. Results & Data ([facility]) Vital Signs (Past 12 Hours) Vital Signs Temp Pulse Pulse Resp BP BP Pulse Ox 10/05/19 03:25 37.0 C 76 24 122/63 97 10/05/19 03:21 37.0 C 78 20 123/50 L 98 10/05/19 02:36 37.0 C 78 16 110/54 L 96 10/05/19 01:39 37.0 C 74 23 99/53 L 98 10/05/19 01:36 37.0 C 74 18 99/53 L 98 10/05/19 00:51 37.0 C 75 16 98/62 L 98 10/05/19 00:50 36.9 C 76 18 91/56 L 98 10/05/19 00:31 36.9 C 79 18 86/53 L 98 10/05/19 00:30 36.9 C 79 18 86/53 L 98 10/04/19 23:42 36.6 C 68 14 84/43 L 98 10/04/19 23:40 86 L 10/04/19 23:16 36.4 C L 77 16 90/55 L 94 10/04/19 22:42 36.8 C 75 16 94/62 L 93 10/04/19 22:12 36.8 C 76 14 82/47 L 95 10/04/19 21:57 37.2 C 77 18 91/44 L 92 10/04/19 21:37 37 C 81 18 96/47 L 92 PG Care Time/CCT Total # of Minutes Spent Total Time Spent with Patient: Total time spent is greater than 50% in coordination of care (as documented) at patient's floor/unit and/or counseling patient: Coding Level of Care Code None Diagnoses Fracture of prosthetic hip T84.019A; Z96.649 Encounter type: initial encounter (1) Fracture of prosthetic hip Encounter type: initial encounter Qualified Code(s): T84.019A - Broken internal joint prosthesis, unspecified site, initial encounter; Z96.649 - Presence of unspecified artificial hip joint
[2019-10-05 07:53] LABS: Albumin Level 2.7 gm/dl (3.4-5.0); BUN Creatinine Ratio 18.9 (10-20); Creatinine Clr Calc Pharmacy 73.9 ml/min; Est GFR (African American) 71.4; Est GFR (Non-African American) 61.6; Globulin 2.8 gm/dl (2.5-4.0); Magnesium 2.1 mg/dl (1.8-2.4); Potassium 3.9 mmol/L (3.5-5.1); Total Protein 5.5 gm/dl (6.4-8.2)
[2019-10-05] MEDS: GABAPENTIN 300 MG CAP PO SCH ×2 (08:55→20:47)
[2019-10-05] MEDS: DOCUSATE SODIUM 100 MG CAP PO SCH ×2 (08:55→20:49)
[2019-10-05] MEDS: VENLAFAXINE HCL XR 150 MG CAPXR PO SCH (08:55)
[2019-10-05] MEDS: MULTIVITAMIN TAB PO SCH (08:55)
[2019-10-05] MEDS: PANTOprazole 40 MG TAB PO SCH (08:55)
[2019-10-05] MEDS: ASPIRIN 81 MG ECTAB PO SCH ×2 (08:55→20:47)
[2019-10-05] MEDS: IRON SUCROSE 300 MG in SODIUM CHLORIDE 0.9% 250 ML IV SCH (10:33)
--- NOTE | 2019-10-05 14:07 | Hospitalist Progress Note ---
Date of Service October 05, 2019 Assessment & Plan (1) Fracture of prosthetic hip: 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 Admitted with a closed acute displaced periprosthetic fracture. - Revision with Dr. Leon on 10/02. - Pain control - Zofran 4 mg IV every 6 hours PRN - Continue abx for now per orthopedics. Will switch to daptomycin for easier dosing. - Expected acute blood loss anemia -> Needed 2 units of PRBCs on 10/04 for hgb down to 6.6. (2) History of right hip replacement: See above (3) Status post insertion of spinal cord stimulator: She reports that her will bring in device as needed to turn off spinal cord stimulator for surgery. - No major back pain reported today. (4) Hypercholesteremia: Hold atorvastatin while on daptomycin. (5) Hypertension: BP today is 145/60 after lows yesterday down to 80/50. - Holding carvedilol, lisinopril, and spironolactone at present. Restart as needed. (6) Dependence on supplemental oxygen: Continue nasal cannula oxygen, with titration goal to 94 to 95% pulse ox. (7) GERD (gastroesophageal reflux disease): - Famotidine 20 mg IV every 12 hours (8) Chronic obstructive pulmonary disease: No shortness of breath at present. - Continue Symbicort 160/4.5, 2 puffs twice daily. - Duonebs every 4 hours as needed. (9) Anxiety and depression: - Resume alprazolam, buspirone, mirtazapine and gabapentin post surgery (10) DVT prophylaxis: SCDs - Will defer other prophylaxis to surgical team Admission and Anticipated Discharge Date Admission Date: October 02, 2019 Subjective No major issues today. Feels much perkier after the blood. Hip pain is controlled with our pain medications. Reports no fevers/chills, chest pain, shortness of breath, abdominal pain, nausea, or vomiting. Physical Exam Constitutional: WD/WN, vitals as above Eyes: EOM intact bilaterally; no conjunctival abnormality ENMT: external ear and nose normal, oropharynx normal Neck: trachea midline, no thyromegaly normal visual inspection Respiratory: normal respiratory effort, lungs clear to auscultation no respiratory distress Cardiovascular: RRR, no murmur, no edema Gastrointestinal (Abdomen): Inspection/Auscultation: abdomen normal to inspection; abdomen not distended Musculoskeletal: no cyanosis or clubbing, extremities motor strength 5/5 Extremities: extremities normal to inspection (Right leg with wound vac in 2 spots.) Skin: no rashes, warm and dry Neurologic: moves all extremities and awake Psychiatric: Orientation: alert, oriented to person and cooperative Results & Data Results & Data ([facility]) Vital Signs (Past 12 Hours) Vital Signs Temp Pulse Pulse Resp BP BP Pulse Ox 10/05/19 11:50 36.8 C 84 20 144/57 H 92 10/05/19 08:00 37.0 C 79 18 138/67 96 10/05/19 03:25 37.0 C 76 24 122/63 97 10/05/19 03:21 37.0 C 78 20 123/50 L 98 10/05/19 02:36 37.0 C 78 16 110/54 L 96 PG Care Time/CCT Total # of Minutes Spent Total Time Spent with Patient: Total time spent is greater than 50% in coordination of care (as documented) at patient's floor/unit and/or counseling patient: Coding Level of Care Code 56785 Subseq Hosp Care Lvl 2 Diagnoses Fracture of prosthetic hip T84.019A; Z96.649 Encounter type: initial encounter History of right hip replacement Z96.641 Status post insertion of spinal cord stimulator Z98.890 Hypercholesteremia E78.00 Hypertension I10 Dependence on supplemental oxygen Z99.81 GERD (gastroesophageal reflux disease) K21.9 Chronic obstructive pulmonary disease J44.9 Anxiety and depression F41.9; F32.9 DVT prophylaxis Z29.9 (1) Fracture of prosthetic hip Encounter type: initial encounter Qualified Code(s): T84.019A - Broken internal joint prosthesis, unspecified site, initial encounter; Z96.649 - Presence of unspecified artificial hip joint
[2019-10-05] MEDS: DAPTOmycin 325 MG in SYRINGE 0 ML IV SCH (16:23)
[2019-10-05] MEDS: OXYCODONE HCL IR 5 MG TAB (IMMEDIATE RELEASE) PO PRN ×2 (17:10→21:19)
[2019-10-05] MEDS: ALPRAZolam 0.25 MG TABLET PO SCH (20:47)
[2019-10-05] MEDS: MONTELUKAST SODIUM 10 MG TABLET PO SCH (20:47)
[2019-10-05] MEDS: MIRTAZAPINE TAB 15 MG TAB PO SCH (20:47)
[2019-10-05] MEDS: SENNA 8.6 MG TAB PO SCH (20:47)
[2019-10-06] MEDS: ACETAMINOPHEN 500 MG TAB PO SCH ×3 (06:17→21:44)
[2019-10-06 06:20] LABS: Hematocrit (blood only) 24.2 % (37-47); Hemoglobin 7.7 g/dL (12.0-16.0); Mean Corpuscular Hemoglobin 30.8 pg (25-34); Mean Corpuscular Hgb Conc 31.8 g/dL (32-36); Mean Corpuscular Volume 96.8 fL (80-100); Mean Platelet Volume 9.1 fL (7.4-10.4); Platelet Count 220 K/uL (130-400); RDW Coefficient of Variation 14.3 % (11.5-14.5); RDW Standard Deviation 50.6 fL (36.4-46.3); White Blood Count 7.91 K/uL (4.8-10.8)
[2019-10-06 06:56] LABS: Calcium 8.5 mg/dl (8.5-10.1); Creatinine Clr Calc Pharmacy 107.6 ml/min; Est GFR (African American) 106.7; Est GFR (Non-African American) 92.1; Magnesium 2.3 mg/dl (1.8-2.4); Potassium 4.4 mmol/L (3.5-5.1)
--- NOTE | 2019-10-06 07:38 | Orthopedic Progress Note ---
Date of Service October 06, 2019 Assessment & Plan (1) Fracture of prosthetic hip: Overall she is doing fairly well. She is having too much hip pain. She will be nonweightbearing for 3 months. She would still prefer to be discharged home but she is waiting for a hospital bed. She is on aspirin for DVT prophylaxis and she is on daptomycin for extended antimicrobial prophylaxis. I will get an x-ray of her right hip today just to assess the stability of the lesser troches fracture repair. She is orthopedically stable for discharge when medically ready. She will follow-up with orthopedics in 2 weeks. Present on Admission?: Yes Subjective Oralia was seen and examined at bedside this morning. Overall she is doing fairly well.She is not feeling lightheaded or nauseous. She has been motivated to participate with physical therapy. She is still nonweightbearing. She is now starting to contemplate a discharge to a rehab facility. Physical Exam Musculoskeletal: On physical examination of the right hip, the Amina VAC dressing is to suction. Her leg lengths are equal. She has active dorsiflexion plantarflexion of her right ankle. Results & Data ([facility]) Vital Signs (Past 12 Hours) Vital Signs Temp Pulse Resp BP Pulse Ox 10/06/19 06:20 97 10/06/19 00:02 98 10/05/19 23:24 37.1 C 80 20 112/67 90 PG Care Time/CCT Total # of Minutes Spent Total Time Spent with Patient: Total time spent is greater than 50% in coordination of care (as documented) at patient's floor/unit and/or counseling patient: Coding Level of Care Code None Diagnoses Fracture of prosthetic hip T84.019A; Z96.649 Encounter type: initial encounter (1) Fracture of prosthetic hip Encounter type: initial encounter Qualified Code(s): T84.019A - Broken internal joint prosthesis, unspecified site, initial encounter; Z96.649 - Presence of unspecified artificial hip joint
[2019-10-06] MEDS: VENLAFAXINE HCL XR 150 MG CAPXR PO SCH (07:56)
[2019-10-06] MEDS: ASPIRIN 81 MG ECTAB PO SCH ×2 (07:56→20:28)
[2019-10-06] MEDS: GABAPENTIN 300 MG CAP PO SCH ×2 (07:56→20:28)
[2019-10-06] MEDS: MULTIVITAMIN TAB PO SCH (07:56)
[2019-10-06] MEDS: PANTOprazole 40 MG TAB PO SCH (07:56)
[2019-10-06] MEDS: IRON SUCROSE 300 MG in SODIUM CHLORIDE 0.9% 250 ML IV SCH (08:21)
[2019-10-06] MEDS: DOCUSATE SODIUM 100 MG CAP PO SCH ×2 (08:22→20:28)
[2019-10-06] MEDS: OXYCODONE HCL IR 5 MG TAB (IMMEDIATE RELEASE) PO PRN ×3 (10:05→20:26)
--- NOTE | 2019-10-06 10:30 | XRay Report ---
RIGHT HIP 2 VIEWS CLINICAL HISTORY: Postoperative examination. FINDINGS: AP and frog-leg views of the right hip are compared to study dated 10/03/2019. The skeletal structures are osteopenic. A bipolar right hip arthroplasty with a long femoral stem is in near-colin omic alignment. There is a vertically oriented fracture through the lesser trochanter. There is less than 1 mm of lucency between the lesser trochanter and the femoral shaft/arthroplasty stem. There is chronic posttraumatic deformity of the right inferior pubic ring. The visualized right hemipelvis is otherwise intact. Skin clips and soft tissue edema are expected postoperative findings. IMPRESSION: Again seen is a vertically oriented fracture through the lesser trochanter. There is less than 1 mm of lucency between the fragment and the femoral shaft/arthroplasty stem. Electronically signed by: Obey Martinez M.D. 10/06/2019 10:29 AM
--- NOTE | 2019-10-06 12:46 | Hospitalist Progress Note ---
Date of Service October 06, 2019 Assessment & Plan (1) Fracture of prosthetic hip: 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 Admitted with a closed acute displaced periprosthetic fracture. - Revision with Dr. Leon on 10/02. - Pain control - Zofran 4 mg IV every 6 hours PRN - Continue abx for now per orthopedics. Switched to daptomycin for easier dosing. Dr. Leon would like to determine duration of antibiotics. The abx are an extended prophylactic course. No indication of active joint infection. - Expected acute blood loss anemia -> Needed 2 units of PRBCs on 10/04 for hgb down to 6.6. Today, hgb is 7.7. Finished 3 doses of IV iron on 10/05. (2) History of right hip replacement: See above (3) Status post insertion of spinal cord stimulator: She reports that her will bring in device as needed to turn off spinal cord stimulator for surgery. - No major back pain reported today. (4) Hypercholesteremia: Hold atorvastatin while on daptomycin. (5) Hypertension: BP today is 145/70 after lows on 10/03 down to 80/50. - Holding carvedilol, lisinopril, and spironolactone at present. Restart as needed. I feel this was due to her blood loss and should remain stable now. (6) Dependence on supplemental oxygen: Continue nasal cannula oxygen, with titration goal to 94 to 95% pulse ox. (7) GERD (gastroesophageal reflux disease): - Famotidine 20 mg IV every 12 hours (8) Chronic obstructive pulmonary disease: No shortness of breath at present. - Continue Symbicort 160/4.5, 2 puffs twice daily. - Duonebs every 4 hours as needed. (9) Anxiety and depression: - Resume alprazolam, buspirone, mirtazapine and gabapentin post surgery (10) DVT prophylaxis: SCDs, ASA 81 mg BID per orthopedics - Will defer other prophylaxis to surgical team Admission and Anticipated Discharge Date Admission Date: October 02, 2019 Subjective Doing well today. Not a lot of pain in the right leg. Reports no fevers/chills, chest pain, shortness of breath, abdominal pain, nausea, or vomiting. Physical Exam Constitutional: WD/WN, vitals as above Eyes: EOM intact bilaterally; no conjunctival abnormality ENMT: external ear and nose normal, oropharynx normal Neck: trachea midline, no thyromegaly normal visual inspection Respiratory: normal respiratory effort, lungs clear to auscultation no respiratory distress Cardiovascular: RRR, no murmur, no edema Gastrointestinal (Abdomen): Inspection/Auscultation: abdomen normal to inspection; abdomen not distended Musculoskeletal: no cyanosis or clubbing, extremities motor strength 5/5 Extremities: extremities normal to inspection (Right leg with wound vac in 2 spots.) Skin: no rashes, warm and dry Neurologic: moves all extremities and awake Psychiatric: Orientation: alert, oriented to person and cooperative Results & Data Results & Data ([facility]) Vital Signs (Past 12 Hours) Vital Signs Temp Pulse Resp BP Pulse Ox 10/06/19 08:00 37 C 78 18 146/73 H 94 10/06/19 06:20 97 PG Care Time/CCT Total # of Minutes Spent Total Time Spent with Patient: Total time spent is greater than 50% in coordination of care (as documented) at patient's floor/unit and/or counseling patient: Coding Level of Care Code 98099 Subseq Hosp Care Lvl 2 Diagnoses Fracture of prosthetic hip T84.019A; Z96.649 Encounter type: initial encounter History of right hip replacement Z96.641 Status post insertion of spinal cord stimulator Z98.890 Hypercholesteremia E78.00 Hypertension I10 Dependence on supplemental oxygen Z99.81 GERD (gastroesophageal reflux disease) K21.9 Chronic obstructive pulmonary disease J44.9 Anxiety and depression F41.9; F32.9 DVT prophylaxis Z29.9 (1) Fracture of prosthetic hip Encounter type: initial encounter Qualified Code(s): T84.019A - Broken internal joint prosthesis, unspecified site, initial encounter; Z96.649 - Presence of unspecified artificial hip joint
[2019-10-06] MEDS: DAPTOmycin 325 MG in SYRINGE 0 ML IV SCH (16:55)
[2019-10-06] MEDS: MIRTAZAPINE TAB 15 MG TAB PO SCH (20:28)
[2019-10-06] MEDS: SENNA 8.6 MG TAB PO SCH (20:29)
[2019-10-06] MEDS: ALPRAZolam 0.25 MG TABLET PO SCH (20:29)
[2019-10-06] MEDS: MONTELUKAST SODIUM 10 MG TABLET PO SCH (20:29)
[2019-10-07] MEDS: ACETAMINOPHEN 500 MG TAB PO SCH ×3 (05:30→20:13)
--- NOTE | 2019-10-07 07:07 | Orthopedic Progress Note ---
Date of Service October 07, 2019 Assessment & Plan (1) Fracture of prosthetic hip: Overall she is doing fairly well. She will be essentially nonweightbearing on the right leg for the next 3 months. She can put her right foot down to help transfer. She will remain on aspirin for DVT prophylaxis. The daptomycin has been stopped. She is orthopedically stable for discharge when medically ready. I think we are waiting for a hospital bed to be delivered to her house before she can return home. She can follow-up with orthopedics in about 2 weeks. Present on Admission?: Yes Subjective Oralia was seen and examined at bedside this morning. Overall she is doing very well. She is not having much pain in the right hip. She was a little concerned that she did some touch toe weightbearing on the right leg when she was transferring. I reassured her that that would be fine. We are currently awaiting a hospital bed to be delivered to her house so that she can be discharged home. Physical Exam Musculoskeletal: On physical examination of the right hip, the Amina VAC dressing is to suction. Her leg lengths are equal. She has active dorsiflexion and plantarflexion of her right ankle. Results & Data ([facility]) Vital Signs (Past 12 Hours) Vital Signs Temp Pulse Resp BP Pulse Ox 10/06/19 23:30 37.0 C 80 16 134/74 90 Diagnostic Findings Follow-up x-ray of the right hip shows the fracture to be in near anatomic alignment. The hardware is in good alignment and I see no evidence of complications. PG Care Time/CCT Total # of Minutes Spent Total Time Spent with Patient: Total time spent is greater than 50% in coordination of care (as documented) at patient's floor/unit and/or counseling patient: Coding Level of Care Code None Diagnoses Fracture of prosthetic hip T84.019A; Z96.649 Encounter type: initial encounter (1) Fracture of prosthetic hip Encounter type: initial encounter Qualified Code(s): T84.019A - Broken internal joint prosthesis, unspecified site, initial encounter; Z96.649 - Presence of unspecified artificial hip joint
[2019-10-07] MEDS: OXYCODONE HCL IR 5 MG TAB (IMMEDIATE RELEASE) PO PRN ×2 (07:32→12:52)
[2019-10-07] MEDS: PANTOprazole 40 MG TAB PO SCH (07:34)
[2019-10-07] MEDS: ASPIRIN 81 MG ECTAB PO SCH ×2 (07:34→20:11)
[2019-10-07] MEDS: VENLAFAXINE HCL XR 150 MG CAPXR PO SCH (07:34)
[2019-10-07] MEDS: GABAPENTIN 300 MG CAP PO SCH ×2 (07:34→20:10)
[2019-10-07] MEDS: MULTIVITAMIN TAB PO SCH (07:34)
[2019-10-07] MEDS: DOCUSATE SODIUM 100 MG CAP PO SCH ×2 (07:35→20:10)
[2019-10-07 08:25] LABS: Hematocrit (blood only) 25.8 % (37-47); Hemoglobin 8.1 g/dL (12.0-16.0); Mean Corpuscular Hemoglobin 30.8 pg (25-34); Mean Corpuscular Hgb Conc 31.4 g/dL (32-36); Mean Corpuscular Volume 98.1 fL (80-100); Mean Platelet Volume 9.3 fL (7.4-10.4); Platelet Count 273 K/uL (130-400); RDW Coefficient of Variation 14.6 % (11.5-14.5); RDW Standard Deviation 51.5 fL (36.4-46.3); Red Blood Count 2.63 M/uL (4.2-5.4); White Blood Count 7.42 K/uL (4.8-10.8)
[2019-10-07 08:56] LABS: Albumin Level 2.4 gm/dl (3.4-5.0); BUN Creatinine Ratio 15.5 (10-20); Calcium 8.7 mg/dl (8.5-10.1); Creatinine Clr Calc Pharmacy 133.9 ml/min; Est GFR (African American) 114.7; Est GFR (Non-African American) 98.9; Magnesium 2.3 mg/dl (1.8-2.4); Potassium 4.2 mmol/L (3.5-5.1)
[2019-10-07 08:59] LABS: Albumin Globulin Ratio 0.7 (0.9-2); Bilirubin,Total 0.5 mg/dl (0.2-1); Globulin 3.5 gm/dl (2.5-4.0); Total Protein 5.9 gm/dl (6.4-8.2)
[2019-10-07] MEDS: SENNA 8.6 MG TAB PO SCH (20:11)
[2019-10-07] MEDS: MIRTAZAPINE TAB 15 MG TAB PO SCH (20:11)
[2019-10-07] MEDS: MONTELUKAST SODIUM 10 MG TABLET PO SCH (20:12)
[2019-10-07] MEDS: ALPRAZolam 0.25 MG TABLET PO SCH (20:13)
--- NOTE | 2019-10-07 22:39 | Hospitalist Progress Note ---
Date of Service October 07, 2019 Assessment & Plan (1) Fracture of prosthetic hip: 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 Admitted with a closed acute displaced periprosthetic fracture. - Revision with Dr. Leon on 10/02. - Pain control - Zofran 4 mg IV every 6 hours PRN - Continue abx for now per orthopedics. Switched to daptomycin for easier dosing. Dr. Leon would like to determine duration of antibiotics. The abx are an extended prophylactic course. No indication of active joint infection. - Expected acute blood loss anemia -> Needed 2 units of PRBCs on 10/04 for hgb down to 6.6. Today, hgb is 7.7. Finished 3 doses of IV iron on 10/05. hemoglobin is stable. (2) History of right hip replacement: See above (3) Status post insertion of spinal cord stimulator: She reports that her will bring in device as needed to turn off spinal cord stimulator for surgery. - No major back pain reported today. (4) Hypercholesteremia: Hold atorvastatin while on daptomycin. (5) Hypertension: BP today is 145/70 after lows on 10/03 down to 80/50. - Holding carvedilol, lisinopril, and spironolactone at present. Restart as needed. I feel this was due to her blood loss and should remain stable now. (6) Dependence on supplemental oxygen: Continue nasal cannula oxygen, with titration goal to 94 to 95% pulse ox. (7) GERD (gastroesophageal reflux disease): - Famotidine 20 mg IV every 12 hours (8) Chronic obstructive pulmonary disease: No shortness of breath at present. - Continue Symbicort 160/4.5, 2 puffs twice daily. - Duonebs every 4 hours as needed. (9) Anxiety and depression: - Resume alprazolam, buspirone, mirtazapine and gabapentin post surgery (10) DVT prophylaxis: SCDs, ASA 81 mg BID per orthopedics - Will defer other prophylaxis to surgical team Admission and Anticipated Discharge Date Admission Date: October 02, 2019 Subjective Patient reports no new symptoms today. She is waiting for her hospital bed. Review of Systems Review of Systems: The patient denies chest pain, palpitations, shortness of breath, dyspnea on exertion, cough, lower extremity swelling, sore throat, fevers, chills, sweats, weight change, fatigue, nausea, vomiting, diarrhea , constipation, abdominal pain, pelvic pain, blood in urine or stool, dysuria, urinary frequency or urgency, lightheadedness, dizziness, headache, memory loss, loss of consciousness, rash, abnormal bruising or bleeding, focal or generalized weakness, numbness or tingling in arms, generalized arthralgias or myalgias, back or neck pain, or night sweats. The review of systems is otherwise negative other than for that already noted above, and at least 10 systems have been reviewed. Physical Exam Physical Exam: Constitutional: WD/WN, vitals as above Eyes: EOM intact bilaterally; no conjunctival abnormality ENMT: external ear and nose normal, oropharynx normal Neck: trachea midline, no thyromegaly normal visual inspection Respiratory: normal respiratory effort, lungs clear to auscultation no respiratory distress Cardiovascular: RRR, no murmur, no edema Gastrointestinal (Abdomen): Inspection/Auscultation: abdomen normal to inspection; abdomen not distended Musculoskeletal: no cyanosis or clubbing, extremities motor strength 5/5 Extremities: extremities normal to inspection (Right leg with wound vac in 2 spots.) Skin: no rashes, warm and dry Neurologic: moves all extremities and awake Psychiatric: Orientation: alert, oriented to person and cooperative Results & Data Results & Data ([facility] [place]) Vital Signs (Past 12 Hours) Vital Signs Temp Pulse Resp BP Pulse Ox 10/07/19 15:13 37.1 C 80 16 156/89 H 96 PG Care Time/CCT Total # of Minutes Spent Total Time Spent with Patient: Total time spent is greater than 50% in coordination of care (as documented) at patient's floor/unit and/or counseling patient: Coding Level of Care Code 32426 Subseq Hosp Care Lvl 3 Diagnoses Fracture of prosthetic hip T84.019A; Z96.649 Encounter type: initial encounter History of right hip replacement Z96.641 Status post insertion of spinal cord stimulator Z98.890 Hypercholesteremia E78.00 Hypertension I10 Dependence on supplemental oxygen Z99.81 GERD (gastroesophageal reflux disease) K21.9 Chronic obstructive pulmonary disease J44.9 Anxiety and depression F41.9; F32.9 DVT prophylaxis Z29.9 Time Spent (min) 25 (1) Fracture of prosthetic hip Encounter type: initial encounter Qualified Code(s): T84.019A - Broken internal joint prosthesis, unspecified site, initial encounter; Z96.649 - Presence of unspecified artificial hip joint
[2019-10-08] MEDS: OXYCODONE HCL IR 5 MG TAB (IMMEDIATE RELEASE) PO PRN (03:41)
[2019-10-08] MEDS: ACETAMINOPHEN 500 MG TAB PO SCH (05:57)
--- NOTE | 2019-10-08 07:02 | Orthopedic Progress Note ---
Date of Service October 08, 2019 Assessment & Plan (1) Fracture of prosthetic hip: Overall she is doing fairly well. She will be nonweightbearing on the right hip for about 3 months. She is on aspirin for DVT prophylaxis. She is orthopedically stable for discharge when medically ready. She should have a hospital bed delivered to her house by noon today. She can follow-up with orthopedics in 2 weeks. Full discharge instructions were placed in the discharge summary. Present on Admission?: Yes Subjective Oralia was seen and examined at bedside. She was sitting up in a chair. She looked good. She is not having too much pain in the right hip. She has been motivated to work with physical therapy. She has no complaints. Physical Exam Musculoskeletal: On physical examination of the right hip, the Amina VAC dressing is to suction. Her leg lengths are equal. She has active dorsiflexion plantarflexion of the right ankle. Results & Data ([facility]) Vital Signs (Past 12 Hours) Vital Signs Temp Pulse Resp BP Pulse Ox 10/07/19 23:25 36.5 C 82 18 160/78 H 91 PG Care Time/CCT Total # of Minutes Spent Total Time Spent with Patient: Total time spent is greater than 50% in coordination of care (as documented) at patient's floor/unit and/or counseling patient: Coding Level of Care Code None Diagnoses Fracture of prosthetic hip T84.019A; Z96.649 Encounter type: initial encounter (1) Fracture of prosthetic hip Encounter type: initial encounter Qualified Code(s): T84.019A - Broken internal joint prosthesis, unspecified site, initial encounter; Z96.649 - Presence of unspecified artificial hip joint
[2019-10-08 07:56] LABS: Basophils # (auto) 0.03 K/uL (0-0.2); Basophils % (auto) 0.4 %; Eosinophils # (auto) 0.24 K/uL (0-0.5); Eosinophils % (auto) 3.4 %; Hematocrit (blood only) 28.5 % (37-47); Immature Granulocytes # (auto) 0.03 K/uL (0.00-0.02); Immature Granulocytes % (auto) 0.4 %; Lymphocytes # (auto) 1.53 K/uL (1.2-3.4); Mean Corpuscular Hemoglobin 30.8 pg (25-34); Mean Corpuscular Hgb Conc 31.6 g/dL (32-36); Mean Corpuscular Volume 97.6 fL (80-100); Monocytes # (auto) 0.82 K/uL (0.11-0.59); Monocytes % (auto) 11.8 %; Neutrophils # (auto) 4.32 K/uL (1.4-6.5); Platelet Count 313 K/uL (130-400); RDW Coefficient of Variation 14.6 % (11.5-14.5); RDW Standard Deviation 49.6 fL (36.4-46.3); Red Blood Count 2.92 M/uL (4.2-5.4); White Blood Count 6.97 K/uL (4.8-10.8)
[2019-10-08] MEDS: DOCUSATE SODIUM 100 MG CAP PO SCH (09:01)
[2019-10-08] MEDS: MULTIVITAMIN TAB PO SCH (09:02)
[2019-10-08] MEDS: VENLAFAXINE HCL XR 150 MG CAPXR PO SCH (09:02)
[2019-10-08] MEDS: PANTOprazole 40 MG TAB PO SCH (09:02)
[2019-10-08] MEDS: GABAPENTIN 300 MG CAP PO SCH (09:02)
[2019-10-08] MEDS: ASPIRIN 81 MG ECTAB PO SCH (09:02)
[2019-10-08] MEDS ORDERED: lisinopriL 20 MG TAB PO STA (11:29)
[2019-10-08] MEDS ORDERED: carvediloL 6.25 MG TAB PO SCH (11:30)
[2019-10-08] MEDS ORDERED: SPIRONOLACTONE 25 MG TAB PO ONE (11:30)
--- NOTE | 2019-10-15 07:22 | Discharge Summary ---
Date of Service October 08, 2019 Admission HPI Per Admitting Provider Oralia presented to [facility] on 10/02/19 with right hip pain. She is approximately 4- 5 weeks post op right total hip replacement done by Dr. Leon. Post operatively and on subsequent follow ups she was doing very well. She was ambulating independently and was going through physical therapy. She states that she was getting into a chair yesterday and when she brought her right leg up and over she felt a crack and instant pain. After going to [facility] ER, xrays showed and acute yuri-prosthetic fracture of her right hip. She was stabilized, pain controlled, and admitted to the [facility] ortho floor. Principal Diagnosis Fracture of prosthetic hip Discharge Exam Constitutional: WD/WN, vitals as above Eyes: EOM intact bilaterally; no conjunctival abnormality ENMT: external ear and nose normal, oropharynx normal Neck: trachea midline, no thyromegaly normal visual inspection Respiratory: normal respiratory effort, lungs clear to auscultation no respiratory distress Cardiovascular: RRR, no murmur, no edema Gastrointestinal (Abdomen): Inspection/Auscultation: abdomen normal to inspection; abdomen not distended Musculoskeletal: no cyanosis or clubbing, extremities motor strength 5/5 Extremities: extremities normal to inspection (Right leg with wound vac in 2 spots.) Skin: no rashes, warm and dry Neurologic: moves all extremities and awake Psychiatric: Orientation: alert, oriented to person and cooperative Discharge Data Allergies Allergy/AdvReac Type Severity Reaction Status Date / Time amoxicillin Allergy Mild RASH Verified 10/11/19 13:32 rofecoxib Allergy Unknown Unknown Verified 10/11/19 13:32 simvastatin AdvReac Intermediate Muscle Pain Verified 10/11/19 13:32 aspirin AdvReac Mild PER Verified 10/11/19 13:32 PATIENT, LISTED B/C SHE HAS ASTHMA-CAN USE W/O ISSUES NO Consultations 10/04/19 08:00 Consult Case Management - Discharge Planning Routine Procedures Performed Operation Date: 10/03/19 09:00 Actual Procedures p Open Reduction Internal Fixation Right Hip, Exchange of Right Femoral Implant (Right) - Oscar Leon, DO Hospital Course (1) Fracture of prosthetic hip: 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 Admitted with a closed acute displaced periprosthetic fracture. - Revision with Dr. Leon on 07/23. - Pain control - Zofran 4 mg IV every 6 hours PRN - Continue abx for now per orthopedics. Switched to daptomycin for easier dosing. Dr. Leon would like to determine duration of antibiotics. The abx are an extended prophylactic course. No indication of active joint infection. - Expected acute blood loss anemia -> Needed 2 units of PRBCs on 10/04 for hgb down to 6.6. Today, hgb is 7.7. Finished 3 doses of IV iron on 10/05. hemoglobin is stable. Ok for discharge from ortho standpoint. (2) History of right hip replacement: See above (3) Status post insertion of spinal cord stimulator: She reports that her will bring in device as needed to turn off spinal cord stimulator for surgery. - No major back pain reported today. (4) Hypercholesteremia: Hold atorvastatin while on daptomycin. (5) Hypertension: BP today is 145/70 after lows on 10/03 down to 80/50. - Holding carvedilol, lisinopril, and spironolactone at present. Restart as needed. I feel this was due to her blood loss and should remain stable now. (6) Dependence on supplemental oxygen: Continue nasal cannula oxygen, with titration goal to 94 to 95% pulse ox. (7) GERD (gastroesophageal reflux disease): - Famotidine 20 mg IV every 12 hours (8) Chronic obstructive pulmonary disease: No shortness of breath at present. - Continue Symbicort 160/4.5, 2 puffs twice daily. - Duonebs every 4 hours as needed. (9) Anxiety and depression: - Resume alprazolam, buspirone, mirtazapine and gabapentin post surgery (10) DVT prophylaxis: SCDs, ASA 81 mg BID per orthopedics - Will defer other prophylaxis to surgical team Total Time Total Time Spent Total Time Spent (In Minutes): 32 Discharge Plan Discharge Items Patient Disposition: Home - Home Health Services Reason For Visit: PERIPROSTHETIC FRACTURE Discharge Diagnosis: Periprostethetic fracture Activity: Resume your previous activity Non-emergency contact: Primary Care Provider Call non-emergency contact if: you have any medication questions Follow-up/Referrals: Lashawn Servin CRNP [Primary Care Provider] - 10/22/19 10:15 am Diet: Heart Healthy Addtl Attending Provider Instructions: Activity and Therapy Recommendations: You will be nonweightbearing for the next 3 months You can put some weight on the right hip to transfer or to study yourself at a counter, however I generally want no weight on the right hip. Medications: * Narcotic You will likely be sent home from the hospital with a prescription for the narcotic pain medication that worked best throughout your stay. * Aspirin Most patients will be required to take Aspirin 81mg twice a day for 6 weeks after surgery. This is obtained [id number] and a prescription is not necessary. * Other medications may be prescribed for specific circumstances. If you have any questions, please call the office at . * Resume previous home medications unless otherwise instructed TEDs/Elastic Stockings: The white elastic stockings help limit swelling and prevent blood clots from forming in your legs. The more you wear them, the more they work. Wear them for six weeks. Dressing Care: You will likely have a purple VAC dressing after surgery. This dressing will keep the incision dry and promote early healing. After about 7 days the batteries will wear out and the VAC will lose suction. Simply remove the dressing at that time and throw everything away, including the small suction machine. Then, you may leave the brad open to air or cover them with a dry dressing so they do not rub on your pants. The brad will be removed at your 2 week follow-up appointment. Showering: You may shower immediately with the purple VAC dressing. Let the shower spray hit your opposite side and slowly pat the plastic dry. Do not soak the dressing. After the dressing is removed you may shower normally with the brad exposed. Let soapy water run over the brad and pat them dry. Things To Watch For: * Drainage from the incision site that occurs more than one week after your surgery. * Increased redness at the incision site. * Fever above 102 degrees Fahrenheit. * Unusual chest pain or shortness of breath. * Call [facility] at with any of the above problems Follow-Up Visit: Follow-up with Dr. Leon's PA (Oscar So) 2-3 weeks after your day of surgery. He will remove your brad and answer any questions. If you have any additional questions or concerns, Dr Edward is usually in the office at the same time and will be available An appointment was probably scheduled when you signed-up for surgery in the office. If you have any questions call Office Instructions: More detailed instructions as well as Frequently Asked Questions were provided in a folder by our office when you signed-up for surgery. Please review these instructions when you get home. If you have any further questions or concerns, please feel free to call the office at [phone] Pending Studies at Discharge: No Stand-Alone Forms: [facility], Opioid Pain Management, Smoking Cessation Medications and DC Order Prescriptions: New docusate sodium 100 mg Capsule 100 mg PO BID PRN (Reason: constipation) Qty: 60 RF: 0 Continued venlafaxine 150 mg capsule,extended release 24hr See Rx Instructions .ROUTE .COMPLEX Qty: 30 RF: 11 spironolactone 25 mg tablet See Rx Instructions .ROUTE .COMPLEX Qty: 30 RF: 11 cyclobenzaprine 10 mg tablet See Rx Instructions .ROUTE .COMPLEX Qty: 90 RF: 5 Hold Instructions: Insurance does not want to pay , do a trial baclofen gabapentin 300 mg capsule See Rx Instructions .ROUTE .COMPLEX Qty: 180 RF: 11 montelukast 10 mg tablet 10 mg PO QPM Qty: 90 RF: 3 carvedilol 6.25 mg tablet 6.25 mg PO BID Qty: 60 RF: 5 tramadol 50 mg tablet 50 - 100 mg PO HS Qty: 60 RF: 0 oxycodone-acetaminophen [Percocet] 5-325 mg tablet 1 tab PO Q6H PRN (Reason: pain) Qty: 30 RF: 0 lisinopril 20 mg tablet 20 mg PO DAILY Qty: 30 RF: 3 albuterol sulfate [Ventolin HFA] 90 mcg/actuation HFA aerosol inhaler 2 puff INHALATION Q6H PRN (Reason: Shortness Of Breath) Qty: 18 RF: 0 Symbicort 160-4.5 mcg/actuation HFA aerosol inhaler 2 puff INHALATION BID RF: 0 meclizine 25 mg tablet 25 mg PO TID PRN (Reason: Dizziness) RF: 0 ipratropium-albuterol 0.5 mg-3 mg(2.5 mg base)/3 mL solution for nebulization 3 ml inhalation QID PRN (Reason: shortness of breath or wheezing) Qty: 2 RF: 0 (DME) Oxygen Home Liters Per Minute See Dose Instructions .ROUTE .MEDSUPPLY Qty: 1 RF: 0 diclofenac sodium 1 % gel 2 g TOPICAL QID PRN (Reason: Pain) Qty: 300 RF: 3 buspirone 10 mg tablet 10 mg PO BID PRN (Reason: Anxiety) RF: 0 atorvastatin 40 mg tablet 40 mg PO HS RF: 0 pantoprazole [Protonix] 40 mg tablet,delayed release (DR/EC) 40 mg PO QAM RF: 0 mirtazapine 30 mg tablet 30 mg PO HS RF: 0 alprazolam 1 mg tablet 0.25 mg PO HS RF: 0 aspirin 81 mg Tablet,Delayed Release (Dr/Ec) 81 mg PO BID 42 Days Qty: 0 RF: 0 Discontinued celecoxib [Celebrex] 200 mg capsule 200 mg PO BID RF: 0 No Action oxycodone-acetaminophen [Percocet] 5-325 mg tablet 1 tab PO Q6H PRN (Reason: pain) Qty: 30 RF: 0 cephalexin [Keflex] 500 mg capsule 500 mg PO TID 14 Days Qty: 42 RF: 0 Discharge Orders: Discharge Order (Routine); Ordered 10/08/19 Ordered By: Devon Delacruz/Other Patient Handouts: DVT Post Op Prevention Admission Data Admit Date/Time: 10/02/19 22:17 Attending Provider: Devon Pennington Admit Provider: Charan Culver Primary Care Provider: Lashawn Servin Other Providers: Lion Monreal Other Interventions: Discharge Summary Assessment (RN) Last Done: 10/08/19 11:26 DC Date/Time DO NOT enter until pt leaves facility: 10/08/19 13:25 Coding Level of Care Code D/C Day Management >30 mins Diagnoses Fracture of prosthetic hip T84.019A; Z96.649 Encounter type: initial encounter History of right hip replacement Z96.641 Status post insertion of spinal cord stimulator Z98.890 Hypercholesteremia E78.00 Hypertension I10 Dependence on supplemental oxygen Z99.81 GERD (gastroesophageal reflux disease) K21.9 Chronic obstructive pulmonary disease J44.9 Anxiety and depression F41.9; F32.9 DVT prophylaxis Z29.9 Time Spent (min) 32
== END 2019-10-08 13:25 | disposition home health service (06) | DRG 464 ==
LOC: ED 19:20 → SUATTDRO 22:17 → 3E 22:17 → 2E 10-05 01:29 → 3N 10-05 14:08

== ENCOUNTER 2019-10-11 13:00 | Observation (INO) ==
[~2019-10-11 13:00] MED LIST changes: -ACETAMINOPHEN 500 MG TAB PO SCH; -BUPIVACAINE 0.5 % 5 MG/1 ML PF 10ML VIAL ONE; -CEFAZOLIN 3000MG 72.5 ML IV SCH; -EPINEPHrine INJ 1 MG/ML AMP ONE; -FAMOTIDINE 20 MG TAB PO SCH; -GABAPENTIN 300 MG CAP PO SCH; -LR 60ML/HR IV SCH; -MIDAZOLAM HCL 1 MG/ML 2ML VIAL ONE; -ONDANSETRON INJ 2 MG/ML 2 ML VIAL ONE; -PROPOFOL IV EMULSION 10 MG/ML 20 ML VIAL IV ONE; -ROCURONIUM BROMIDE 10 MG/ML 5 ML VIAL ONE; -ROPIVACAINE 0.5% HCL/PF 150 MG, BUPIVACAINE 0.5% MPF 30 ML, EPINEPHrine 30MG/30ML (OR U... INFIL SCH; -SUCCINYLCHOLINE CHLORIDE 20 MG/ML 10 ML VIAL ONE; -TRANEXAMIC ACID 1,000 MG **IV Intra-op IV SCH; -TRANEXAMIC ACID 1,000 MG **IV Pre-op IV SCH; +VANCOMYCIN HCL 2,000 MG in SODIUM CHLORIDE 0.9% 500 ML IV SCH; -VASOPRESSIN 20 UNIT/ML VIAL ONE; -dexAMETHasone 4 MG TAB PO SCH; -fentaNYL citrate 100 MCG/2 ML VIAL ONE
--- NOTE | 2019-10-11 13:54 | History & Physical Report ---
Date of Service October 11, 2019 Assessment & Plan Admission and Anticipated Discharge Date Admission Date: We will proceed with an evacuation of a hematoma of the right hip. Postoperatively she will be placed on antibiotics and kept overnight in the hospital for observation. We will plan to discharge her back home tomorrow. She is currently nonweightbearing on that right hip. She is on aspirin for DVT prophylaxis. History of Present Illness Chief Complaint: Postsurgical hematoma of the right hip Primary Care Provider: SARAH Moulton Oralia is a pleasant 64-year-old female who underwent a revision right hip replacement for fracture about 8 days ago. She is a very large soft tissue envelope. She had a Amina VAC dressing on for 7 days. They remove the dressing today and there was significant drainage. She came to my office and my partner was unable to control the amount of drainage coming out from the hematoma. He was able to place a VAC sponge on her in the office. The VAC sponge continue to fill with blood. I had her come directly over to the operating room and she presents for an urgent evacuation hematoma of the right hip wound. Allergies Allergy/AdvReac Type Severity Reaction Status Date / Time amoxicillin Allergy Mild RASH Verified 10/11/19 13:32 rofecoxib Allergy Unknown Unknown Verified 10/11/19 13:32 simvastatin AdvReac Intermediate Muscle Pain Verified 10/11/19 13:32 aspirin AdvReac Mild PER Verified 10/11/19 13:32 PATIENT, LISTED B/C SHE HAS ASTHMA-CAN USE W/O ISSUES NO Home Medications Home Medications Medication Instructions Recorded Confirmed Type albuterol sulfate 90 mcg/actuation 2 puff INHALATION Q6H PRN #18 gm 08/13/18 10/09/19 Rx aerosol inhaler budesonide-formoterol HFA 160 2 puff INHALATION BID 08/13/18 10/09/19 History mcg-4.5 mcg/actuation aerosol inhaler ipratropium 0.5 mg-albuterol 3 mg 3 ml INHALATION QID PRN #2 ml 08/13/18 10/09/19 History (2.5 mg base)/3 mL nebulization soln meclizine 25 mg tablet 25 mg PO TID PRN tab 08/13/18 10/09/19 History cyclobenzaprine 10 mg tablet See Rx Instructions .ROUTE 02/04/19 10/09/19 Rx .COMPLEX #90 tablet spironolactone 25 mg tablet See Rx Instructions .ROUTE 02/04/19 10/09/19 Rx .COMPLEX #30 tablet venlafaxine 150 mg See Rx Instructions .ROUTE 02/04/19 10/09/19 Rx capsule,extended release 24 hr .COMPLEX #30 capsule Oxygen Home #1 ea 02/20/19 10/09/19 History gabapentin 300 mg capsule See Rx Instructions .ROUTE 03/08/19 10/09/19 Rx .COMPLEX #180 capsule montelukast 10 mg tablet 10 mg PO QPM #90 tab 04/04/19 10/09/19 Rx diclofenac sodium 1 % topical gel 2 g TOPICAL QID PRN #300 gm 04/15/19 10/09/19 Rx atorvastatin 40 mg PO HS 08/21/19 10/09/19 History mirtazapine 30 mg PO HS 08/21/19 10/09/19 History pantoprazole [Protonix] 40 mg PO QAM 08/21/19 10/09/19 History lisinopril 20 mg tablet 20 mg PO DAILY #30 tab 09/02/19 10/09/19 Rx alprazolam 0.25 mg PO HS 09/06/19 10/09/19 History aspirin 81 mg PO BID 42 Days #0 tab 09/06/19 10/09/19 Rx carvedilol 6.25 mg tablet 6.25 mg PO BID #60 tab 09/23/19 10/09/19 Rx tramadol 50 mg tablet 50 - 100 mg PO HS #60 tab 09/24/19 10/09/19 Rx oxycodone-acetaminophen 5 mg-325 1 tab PO Q6H PRN #30 tab 09/30/19 10/09/19 Rx mg tablet buspirone 10 mg PO BID PRN 10/02/19 10/09/19 History docusate sodium 100 mg PO BID PRN #60 cap 10/08/19 10/09/19 Rx Past Med/Surg History Medical History Anxiety and depression Asthma STABLE Chronic obstructive pulmonary disease STABLE; ON O2 2L PRN ACTIVITY*-F/U DR CELIA JACOBS Congestive heart failure REMOTE-HX- STABLE AND CONTROLLED Depression GERD (gastroesophageal reflux disease) CONTROLLED Hiatal hernia Hypercholesteremia Hypertension Migraine HX Morbid obesity Pulmonary embolism ~2012- on AC x 1 year - then d/'edwardo - no issues since Sleep apnea CPAP, stopped 2017, couldn't war mask d/t anxiety SOBOE (shortness of breath on exertion) CHRONIC/MILD AND STABLE Surgical History H/O foot surgery History of bilateral carpal tunnel release History of esophagogastroduodenoscopy (EGD) History of right hip replacement (~08/2019) History of tonsillectomy and adenoidectomy History of total left hip replacement (~2017) Previous back surgery S/P insertion of spinal cord stimulator 2/2 LBP/RADICULOPATHY; PATIENT ADVISED TO BRING REMOTE AM DOS (OR NOTIFIED) Status post correction of deviated nasal septum Status post insertion of spinal cord stimulator Family History Father Prostate cancer Myocardial infarction Diabetes Mother Myocardial infarction Family/Other Heart disease Hypertension Other Family history non-contributory Denies family history of Ovarian cancer Breast cancer Colorectal cancer Social History Smoking Status: Never smoker Second Hand Exposure: No; Hx Alcohol Use: Yes Alcohol type: beer Hx Substance Use: No Preferred Language: Monegasque Communication Ability: Effective Visual Impairment: No Limitations Hearing Ability: Normal Correctional Corporal Required: No Beliefs That Will Affect Care: None marital status: Current Living Situation: Spouse current occupational status: disabled Feels Safe at Home: Yes Dental Care, Regularly: No Seatbelt Use: always Sunscreen Use: Yes Review of Systems Review of Systems: All systems reviewed & are unremarkable except as noted in HPI & below Physical Exam Constitutional: WD/WN, vitals as above Eyes: PERRL, conjunctivae normal, anicteric sclerae ENMT: external ear and nose normal, oropharynx normal Neck: trachea midline, no thyromegaly Respiratory: normal respiratory effort Cardiovascular: RRR, no murmur, no edema Gastrointestinal (Abdomen): normal bowel sounds, soft, nontender, no hepatosplenomegaly Musculoskeletal: On physical examination of the right hip, there is a draining from the superior aspect of the incision. There is a Amina VAC dressing on it now but it is already filling a second canister. There is some Betadine around the edges of the skin. The brad are still in place. She has no issues with her hip she is neurovascular intact, no signs of infection. Psychiatric: A+Ox3, euthymic affect PG Care Time/CCT Total # of Minutes Spent Total Time Spent with Patient: Total time spent is greater than 50% in coordination of care (as documented) at patient's floor/unit and/or counseling patient: Coding Level of Care Code 20944 Initial Inpt Care Lvl 2
[2019-10-11] MEDS ORDERED: MIDAZOLAM HCL 1 MG/ML 2ML VIAL ONE (15:56)
[2019-10-11] MEDS ORDERED: fentaNYL citrate 100 MCG/2 ML VIAL ONE ×2 (15:56→17:01)
--- NOTE | 2019-10-11 16:07 | Anesthesiology Consultation ---
Date of Service October 11, 2019 Assessment & Plan (1) Encounter for pre-operative examination: Chart Review Chart Review: Acceptable Risk for Surgery and Patient NOT seen in Pre Admission Testing Consults Requested none ASA [id number] Proposed Anesthesia Anesthesia Type: General Risk / Benefits Reviewed With: PT / POA / Parent / Guardian, Accepts Plan and I nformed Consent Obtained History Surgery Operation Date: 10/11/19 10:20 Proposed Procedures p Evacuation Hematoma and Wound Closure Hip Right - Oscar Leon, Height/Weight Height: 5 ft 2.25 in Weight: 128.094 kg Allergies Allergy/AdvReac Type Severity Reaction Status Date / Time amoxicillin Allergy Mild RASH Verified 10/11/19 13:32 rofecoxib Allergy Unknown Unknown Verified 10/11/19 13:32 simvastatin AdvReac Intermediate Muscle Pain Verified 10/11/19 13:32 aspirin AdvReac Mild PER Verified 10/11/19 13:32 PATIENT, LISTED B/C SHE HAS ASTHMA-CAN USE W/O ISSUES NO Medications Home Medications Medication Instructions Recorded Confirmed Last Taken albuterol sulfate 90 mcg/actuation 2 puff INHALATION Q6H PRN #18 gm 08/13/18 10/11/19 09/06/19 05:00 aerosol inhaler budesonide-formoterol HFA 160 2 puff INHALATION BID 08/13/18 10/11/19 10/11/19 05:00 mcg-4.5 mcg/actuation aerosol inhaler ipratropium 0.5 mg-albuterol 3 mg 3 ml INHALATION QID PRN #2 ml 08/13/18 10/11/19 1 Month Ago (2.5 mg base)/3 mL nebulization ~08/06/19 soln meclizine 25 mg tablet 25 mg PO TID PRN tab 08/13/18 10/11/19 1 Month Ago ~08/06/19 cyclobenzaprine 10 mg tablet See Rx Instructions .ROUTE 02/04/19 10/11/19 09/05/19 21:00 .COMPLEX #90 tablet spironolactone 25 mg tablet See Rx Instructions .ROUTE 02/04/19 10/11/19 10/11/19 05:00 .COMPLEX #30 tablet venlafaxine 150 mg See Rx Instructions .ROUTE 02/04/19 10/11/19 10/11/19 05:00 capsule,extended release 24 hr .COMPLEX #30 capsule Oxygen Home #1 ea 02/20/19 10/11/19 Unknown gabapentin 300 mg capsule See Rx Instructions .ROUTE 03/08/19 10/11/19 10/11/19 05:00 .COMPLEX #180 capsule montelukast 10 mg tablet 10 mg PO QPM #90 tab 04/04/19 10/11/19 10/10/19 19:00 diclofenac sodium 1 % topical gel 2 g TOPICAL QID PRN #300 gm 04/15/19 10/11/19 1 Week Ago ~08/30/19 atorvastatin 40 mg PO HS 08/21/19 10/11/19 10/10/19 19:00 mirtazapine 30 mg PO HS 08/21/19 10/11/19 10/10/19 19:00 pantoprazole [Protonix] 40 mg PO QAM 08/21/19 10/11/19 10/11/19 05:00 lisinopril 20 mg tablet 20 mg PO DAILY #30 tab 09/02/19 10/11/19 10/11/19 05:00 alprazolam 0.25 mg PO HS 09/06/19 10/11/19 09/05/19 21:00 aspirin 81 mg PO BID 42 Days #0 tab 09/06/19 10/11/19 10/11/19 05:00 carvedilol 6.25 mg tablet 6.25 mg PO BID #60 tab 09/23/19 10/11/19 10/11/19 05:00 tramadol 50 mg tablet 50 - 100 mg PO HS #60 tab 09/24/19 10/11/19 Unknown oxycodone-acetaminophen 5 mg-325 1 tab PO Q6H PRN #30 tab 09/30/19 10/11/19 10/10/19 19:00 mg tablet buspirone 10 mg PO BID PRN 10/02/19 10/11/19 Unknown docusate sodium 100 mg PO BID PRN #60 cap 10/08/19 10/11/19 10/10/19 19:00 Active Medications Generic Name Dose Route Start Last Admin Trade Name Freq PRN Reason Stop Dose Admin Vancomycin HCl 2,000 mg/ 540 mls @ 200 mls/hr 10/11/19 06:00 07/31/20 14:01 Sodium Chloride IV 10/11/19 18:00 200 mls/hr PREOP MEAGHAN Administration Lactated Ringer's 1,000 mls @ 15 mls/hr 10/11/19 06:00 10/11/19 14:01 Lr IV 10/12/19 05:59 15 mls/hr .Q24H MEAGHAN Administration NPO Date Last Intake of Fluids: 10/11/19 Time Last Intake of Fluids: 05:00 Date Last Intake of Solids: 10/11/19 Time Last Intake of Solids: 05:00 Past Medical History Medical History Anxiety and depression Asthma STABLE Chronic obstructive pulmonary disease STABLE; ON O2 2L PRN ACTIVITY*-F/U DR CELIA JACOBS Congestive heart failure REMOTE-HX- STABLE AND CONTROLLED Depression GERD (gastroesophageal reflux disease) CONTROLLED Hiatal hernia Hypercholesteremia Hypertension Migraine HX Morbid obesity Pulmonary embolism ~2012- on AC x 1 year - then d/'edwardo - no issues since Sleep apnea CPAP, stopped 2017, couldn't war mask d/t anxiety SOBOE (shortness of breath on exertion) CHRONIC/MILD AND STABLE Exercise / Class Metabolic Activity III < 4 Walking/Shop/Light housework Past Family History Family History Father Prostate cancer Myocardial infarction Diabetes Mother Myocardial infarction Family/Other Heart disease Hypertension Other Family history non-contributory Denies family history of Ovarian cancer Breast cancer Colorectal cancer Past Surgical History Surgical History H/O foot surgery History of bilateral carpal tunnel release History of esophagogastroduodenoscopy (EGD) History of right hip replacement (~08/2019) History of tonsillectomy and adenoidectomy History of total left hip replacement (~2017) Previous back surgery S/P insertion of spinal cord stimulator 2/2 LBP/RADICULOPATHY; PATIENT ADVISED TO BRING REMOTE AM DOS (OR NOTIFIED) Status post correction of deviated nasal septum Status post insertion of spinal cord stimulator Past Anesthesia History No Hx of Anesthesia Complications and No Family Hx of Anesthesia Complications History of PONV No Hx of PONV and No Hx of Motion Sickness Social History Smoking Status: Never smoker Hx Alcohol Use: Yes Alcohol type: beer alcohol intake frequency: a few times a month Hx Substance Use: No Review of Systems Patient denies active symptoms of GERD. Physical Exam Vital Signs Last Vital Signs Temp 37 C 10/11/19 13:51 Pulse 75 10/11/19 13:51 Resp 20 10/11/19 13:51 BP 161/70 H 10/11/19 13:51 Pulse Ox 94 10/11/19 13:51 Constitutional + morbidly obese ENMT Mouth: no TMJ abnormality and oral opening not small Thyromental Distance: < 3.5 Finger Breadths Mallampati Class: I Neck normal visual inspection; neck extension not limited Respiratory normal respiratory effort Auscultation: lungs clear to auscultation bilaterally Cardiovascular Rate/Rhythm: regular rate and regular rhythm Heart Sounds: no murmur Neurologic moves all extremities Psychiatric Orientation: alert and oriented x 3 Testing Other Testing Electrocardiogram Date: 10/02/19 HR 87 Poor data quality, interpretation may be adversely affected Accelerated Junctional rhythm Junctional ST depression, probably normal Abnormal ECG When compared with ECG of 19-JAN-2017 09:27, Junctional rhythm has replaced Sinus rhythm Chest X-Ray Date: 10/02/19 XR chest 1V portable HISTORY: pre op COMPARISON: Chest 08/28/2019. FINDINGS: There are low lung volumes. The heart remains mildly enlarged. Spinal stimulator leads terminate at the T11 level. The lungs are clear. No pleural effusions. No pneumothorax. IMPRESSION: No significant change compared to the prior study. No acute process. Stable cardiomegaly.
[2019-10-11] MEDS ORDERED: BACITRACIN INJ 50,000 UNIT VIAL ONE (16:14)
[2019-10-11] MEDS ORDERED: ONDANSETRON INJ 2 MG/ML 2 ML VIAL IV PRN ×2 (17:05→20:05)
[2019-10-11] MEDS ORDERED: ATROPINE SULFATE 0.1 MG/ML 10ML SYR IV PRN (17:05)
[2019-10-11] MEDS ORDERED: fentaNYL citrate 100 MCG/2 ML VIAL IV PRN (17:05)
[2019-10-11] MEDS ORDERED: ePHEDrine sulfate 50 MG/ML AMP IV PRN (17:05)
--- NOTE | 2019-10-11 17:44 | Operative Report ---
PG Post Operative Report Pre & Post Diagnosis Operation Date: 10/11/19 10:20 Pre-Op Diagnosis: Postoperative seroma right hip Post-Op Diagnosis: Postoperative seroma the right hip I identified the patient and participated in the time-out.: Yes Procedure Operation Date: 10/11/19 10:20 Actual Procedures p Evacuation of Seroma and Wound Closure Hip Right(Right) - Oscar Leon DO Surgeon Oscar Leon, Banquet Cook Oscar So PAC Estimated Blood Loss 10 Findings Consistent with Post-Op Diagnosis Specimens None Complications none Disposition Disposition: Recovery Room Indications Oralia is a 64-year-old female who underwent a revision right total hip arthroplasty a week ago. A Amina VAC dressing was placed and she was started on aspirin. After the Amina VAC was removed today she was having copious amounts of drainage coming from a single spot in her wound. There was no signs of infection. All the drainage was pure sterile hematoma. She came to our office and my partner had trouble controlling the sterile seroma. I told her to come directly to the operating room for me to do a formal I&D of the seroma of her hip. Description of Procedure On October 11, 2019 Oralia arrived at [facility] for the above procedure. She was seen in the preoperative holding area and the operative extremity was identified and signed. She is given a preoperative antibiotic. She was taken back to the operating room and laid on the table in supine position. She was put under general anesthesia. Should point allow decubitus position. The right hip was prepped and draped in sterile fashion. A timeout was done. The patient and the operative extremity was properly identified. Several of the brad were removed at the most proximal aspect of the incision. A large sterile seroma was evacuated. There was no signs of infection. There was no purulent discharge. There is no redness around the skin. The wound was washed with 3 L normal saline solution with bacitracin. The wound was then closed with 2-0 Vicryl sutures and brad. A Amina VAC dressing was placed. She was then extubated and transferred to a hospital bed. She was taken to the postanesthesia care unit in stable condition. She tolerated the procedure well. Oscar So PA-C, was present for the entire procedure. He was critical for patient positioning, prepping, draping, retraction exposure, wound closure and application of sterile dressing. I attest to the content of the Intraoperative Record and any orders documented therein. Any exceptions are noted below.
[2019-10-11] MEDS ORDERED: HydrALAZINE HCL 20 MG/ML VIAL ONE (18:10)
--- NOTE | 2019-10-11 18:58 | Anesthesiology Progress Note ---
Date of Service October 11, 2019 Anesthesia Post Procedure Vital Signs Vital Signs: Temp Pulse Pulse Resp BP Pulse Ox 10/11/19 18:45 36.4 C L 69 19 165/56 H 100 10/11/19 18:35 68 20 165/68 H 100 10/11/19 18:26 36.5 C 72 14 132/82 100 10/11/19 13:51 37 C 75 20 161/70 H 94 Pain Intensity Right Hip: Pain Intensity: 5 Lower Back: Pain Intensity: 7 Transfer of Care Handoff Completed per policy Notes Mental Status: alert / awake / arousable and participated in evaluation Patient Amnestic to Procedure: Yes Nausea / Vomiting: adequately controlled Pain: adequately controlled Airway Patency, RR, SpO2: stable & adequate BP & HR: stable & adequate Hydration State: stable & adequate Anesthetic Complications: no major complications apparent and Pt Satisfied with anesthetic care
[2019-10-11] MEDS ORDERED: NALOXONE HCL 0.4 MG/1 ML VIAL/CARP IV PRN (20:05)
[2019-10-11] MEDS ORDERED: DOCUSATE SODIUM 100 MG CAP PO PRN (20:05)
[2019-10-11] MEDS ORDERED: DICLOFENAC SOD 1% GEL 100 GM TUBE EXT PRN (20:05)
[2019-10-11] MEDS ORDERED: SODIUM CHLORIDE 0.9% 1000ML 1,000 ML IV SCH (20:05)
[2019-10-11] MEDS ORDERED: ALBUTEROL HFA 8 GM INHALER INH PRN (20:05)
[2019-10-11] MEDS ORDERED: VANCOMYCIN CONSULT ACTIVE PRN (20:05)
[2019-10-11] MEDS ORDERED: ALBUT/IPRATROP 3MG/0.5MG NEB 3 ML VIAL INH PRN (20:05)
[2019-10-11] MEDS ORDERED: METOCLOPRAMIDE HCL INJ 5 MG/ML 2 ML VIAL IV PRN (20:05)
[2019-10-11] MEDS ORDERED: CYCLOBENZAPRINE HCL 10 MG TAB PO PRN (20:15)
[2019-10-11] MEDS ORDERED: MECLIZINE HCL 25 MG TAB PO PRN (20:18)
[2019-10-11] MEDS ORDERED: Nursing to Pharmacy Communication SCH (20:30)
[2019-10-11] MEDS: OXYCODONE/ACETAMINOPHEN 5mg/325mg TAB PO PRN (20:57)
[2019-10-11] MEDS ORDERED: ATORVASTATIN 40 MG TAB PO SCH (21:00)
[2019-10-11] MEDS ORDERED: MONTELUKAST SODIUM 10 MG TABLET PO SCH (21:00)
[2019-10-11] MEDS ORDERED: SPIRONOLACTONE 25 MG TAB PO SCH (21:00)
[2019-10-11] MEDS ORDERED: ALPRAZolam 0.25 MG TABLET PO SCH (21:00)
[2019-10-11] MEDS ORDERED: TRAMADOL HCL 50 MG TABLET PO SCH (21:00)
[2019-10-11] MEDS ORDERED: MIRTAZAPINE TAB 15 MG TAB PO SCH (21:00)
[2019-10-11] MEDS: ASPIRIN 81 MG ECTAB PO SCH (22:17)
[2019-10-11] MEDS: GABAPENTIN 300 MG CAP PO SCH (22:18)
[2019-10-11] MEDS: carvediloL 6.25 MG TAB PO SCH (22:18)
[2019-10-12] MEDS ORDERED: VANCOMYCIN HCL 2,000 MG in SODIUM CHLORIDE 0.9% 500 ML IV SCH (02:00)
--- NOTE | 2019-10-12 07:22 | Orthopedic Progress Note ---
Date of Service October 12, 2019 Assessment & Plan (1) Postoperative seroma: Overall she is doing fairly well. Her dressing is clean and dry. She is not having any pain. She will get her final dose of vancomycin. We will then discharge her to home on oral Keflex. She can follow-up with orthopedics in 2 weeks for staple removal. Present on Admission?: Yes Subjective Oralia was seen and examined at bedside this morning. Overall she is doing very well. She denies any pain in the right hip. There is been no drainage out of her VAC sponge. She has no complaints. Physical Exam Musculoskeletal: On physical examination of the right hip, the Amina VAC dressing is to suction. There is no drainage in the canister. Her leg lengths are equal. Results & Data ([facility]) Vital Signs (Past 12 Hours) Vital Signs Temp Pulse Pulse Resp BP Pulse Ox 10/12/19 03:02 37.0 C 72 16 115/71 95 10/11/19 22:50 36.4 C L 86 17 130/69 93 10/11/19 21:50 37.2 C 92 H 18 151/81 H 92 10/11/19 20:53 37.2 C 77 18 145/79 H 96 10/11/19 20:21 80 18 164/78 H 92 10/11/19 19:50 37 C 80 18 154/73 H 93 10/11/19 19:45 78 21 159/68 H 95 10/11/19 19:35 77 17 162/62 H 94 10/11/19 19:25 36.4 C L 79 18 167/79 H 95 PG Care Time/CCT Total # of Minutes Spent Total Time Spent with Patient: Total time spent is greater than 50% in coordination of care (as documented) at patient's floor/unit and/or counseling patient: Coding Level of Care Code None Diagnoses Postoperative seroma
--- NOTE | 2019-10-12 07:24 | Discharge Summary ---
Date of Service October 12, 2019 Admission HPI Per Admitting Provider Oralia is a pleasant 64-year-old female who underwent a revision right hip replacement for fracture about 8 days ago. She is a very large soft tissue envelope. She had a Amina VAC dressing on for 7 days. They remove the dressing today and there was significant drainage. She came to my office and my partner was unable to control the amount of drainage coming out from the hematoma. He was able to place a VAC sponge on her in the office. The VAC sponge continue to fill with blood. I had her come directly over to the operating room and she presents for an urgent evacuation hematoma of the right hip wound. Principal Diagnosis Right hip seroma Discharge Data Allergies Allergy/AdvReac Type Severity Reaction Status Date / Time amoxicillin Allergy Mild RASH Verified 10/11/19 13:32 rofecoxib Allergy Unknown Unknown Verified 10/11/19 13:32 simvastatin AdvReac Intermediate Muscle Pain Verified 10/11/19 13:32 aspirin AdvReac Mild PER Verified 10/11/19 13:32 PATIENT, LISTED B/C SHE HAS ASTHMA-CAN USE W/O ISSUES NO Consultations 10/12/19 08:00 Consult Case Management - Discharge Planning Routine Procedures Performed Operation Date: 10/11/19 10:20 Actual Procedures p Evacuation of Seroma and Wound Closure Hip Right(Right) - Oscar Leno DO Hospital Course (1) Postoperative seroma: On October 11, 2019 Oralia arrived at [facility] and underwent an evacuation of the seroma from her right hip without complication. She had a general anesthetic. Postoperatively she was started back on aspirin for DVT prophylaxis and kept overnight in the hospital for postoperative medical observation. Her hospital course was uneventful. On postop day #1 she was doing well. The Amina VAC dressing was to suction and there was no drainage. She was compliant with her nonweightbearing restrictions. She received a single postoperative dose of vancomycin. She was then discharged home on oral Keflex. She was then discharged home. She will follow-up with orthopedics in 2 weeks for staple removal. Total Time Total Time Spent Total Time Spent (In Minutes): 20 Discharge Plan Discharge Items Patient Disposition: Home - Home Health Services Reason For Visit: Massive Hematoma Subcutaneous Hip Right Discharge Diagnosis: Large postsurgical seroma of the right hip Activity: As commented below Non-emergency contact: Surgeon Call non-emergency contact if: your wound has increased redness and your wound has increased drainage Follow-up/Referrals: Lashawn Servin CRNP [Primary Care Provider] - Diet: Regular Addtl Attending Provider Instructions: Continue nonweightbearing on the right hip. Leave the Amina VAC dressing in place for 7 days. Take Keflex orally 3 times a day for the next 2 weeks. Pending Studies at Discharge: No Stand-Alone Forms: [facility], Smoking Cessation Medications and DC Order Prescriptions: New cephalexin [Keflex] 500 mg capsule 500 mg PO TID 14 Days Qty: 42 RF: 0 Continued venlafaxine 150 mg capsule,extended release 24hr See Rx Instructions .ROUTE .COMPLEX Qty: 30 RF: 11 spironolactone 25 mg tablet See Rx Instructions .ROUTE .COMPLEX Qty: 30 RF: 11 cyclobenzaprine 10 mg tablet See Rx Instructions .ROUTE .COMPLEX Qty: 90 RF: 5 Hold Instructions: Insurance does not want to pay , do a trial baclofen gabapentin 300 mg capsule See Rx Instructions .ROUTE .COMPLEX Qty: 180 RF: 11 montelukast 10 mg tablet 10 mg PO QPM Qty: 90 RF: 3 carvedilol 6.25 mg tablet 6.25 mg PO BID Qty: 60 RF: 5 tramadol 50 mg tablet 50 - 100 mg PO HS Qty: 60 RF: 0 oxycodone-acetaminophen [Percocet] 5-325 mg tablet 1 tab PO Q6H PRN (Reason: pain) Qty: 30 RF: 0 lisinopril 20 mg tablet 20 mg PO DAILY Qty: 30 RF: 3 albuterol sulfate [Ventolin HFA] 90 mcg/actuation HFA aerosol inhaler 2 puff INHALATION Q6H PRN (Reason: Shortness Of Breath) Qty: 18 RF: 0 Symbicort 160-4.5 mcg/actuation HFA aerosol inhaler 2 puff INHALATION BID RF: 0 meclizine 25 mg tablet 25 mg PO TID PRN (Reason: Dizziness) RF: 0 ipratropium-albuterol 0.5 mg-3 mg(2.5 mg base)/3 mL solution for nebulization 3 ml inhalation QID PRN (Reason: shortness of breath or wheezing) Qty: 2 RF: 0 (DME) Oxygen Home Liters Per Minute See Dose Instructions .ROUTE .MEDSUPPLY Qty: 1 RF: 0 diclofenac sodium 1 % gel 2 g TOPICAL QID PRN (Reason: Pain) Qty: 300 RF: 3 buspirone 10 mg tablet 10 mg PO BID PRN (Reason: Anxiety) RF: 0 docusate sodium 100 mg Capsule 100 mg PO BID PRN (Reason: constipation) Qty: 60 RF: 0 atorvastatin 40 mg tablet 40 mg PO HS RF: 0 pantoprazole [Protonix] 40 mg tablet,delayed release (DR/EC) 40 mg PO QAM RF: 0 mirtazapine 30 mg tablet 30 mg PO HS RF: 0 alprazolam 1 mg tablet 0.25 mg PO HS RF: 0 aspirin 81 mg Tablet,Delayed Release (Dr/Ec) 81 mg PO BID 42 Days Qty: 0 RF: 0 Discharge Orders: Discharge Order (Routine); Ordered 10/12/19 Ordered By: Oscar Leon Admission Data Admit Date/Time: 10/11/19 17:49 Attending Provider: Oscar Leon Admit Provider: Oscar Leon Primary Care Provider: Lashawn Servin Coding Level of Care Code D/C Day Management <30 mins Diagnoses Postoperative seroma
[2019-10-12] MEDS: OXYCODONE/ACETAMINOPHEN 5mg/325mg TAB PO PRN (07:29)
[2019-10-12] MEDS: GABAPENTIN 300 MG CAP PO SCH (07:30)
[2019-10-12] MEDS: ASPIRIN 81 MG ECTAB PO SCH (07:30)
[2019-10-12] MEDS: carvediloL 6.25 MG TAB PO SCH (07:31)
[2019-10-12] MEDS ORDERED: lisinopriL 20 MG TAB PO SCH (09:00)
[2019-10-12] MEDS ORDERED: FLUTICASONE/VILANTEROL 200/25MCG 14 PUFFS/INHALER INH SCH (09:00)
[2019-10-12] MEDS ORDERED: VENLAFAXINE HCL XR 150 MG CAPXR PO SCH (09:00)
[2019-10-12] MEDS ORDERED: SPIRONOLACTONE 25 MG TAB PO SCH (09:00)
[2019-10-12] MEDS ORDERED: PANTOprazole 40 MG TAB PO SCH (09:00)
[2019-10-12 09:56] VITALS: O2SAT 98
[2019-10-12 11:41] VITALS: PULSE 69; TEMP 99
[2019-10-12 11:43] VITALS: BP 144/81
--- NOTE | 2019-10-21 10:42 | Coding Query ---
CODING QUERY To promote full compliance with coding requirements relating to patient care, provider participation is requested in all cases of program assistant uncertainty. Please assist us with the question(s) below: Coding Question(s): Further clarification is needed regarding the seroma drainage for coding purposes: ( X) Incision was made to drain the seroma ( ) Incision was not made to drain the seroma SPECIFY METHOD: ( ) Other, Please clarify: Physician's Response(s): Thank you Lydia Cifuentes Principal Diagnosis: "that condition established after study, to be chiefly responsible for occasioning the admission of the patient to the hospital for care." Co-Existing Principal Diagnosis: "when two or more diagnoses equally meet the criteria for principal diagnosis as determined by the circumstances of admission, diagnostic work up, and/or therapy provided, and the Alphabetic Index, Tabular List, or another coding guideline does not provide sequencing direction, any one of the diagnoses may be sequenced first." "When the physician has documented what appears to be a current diagnosis in the body of the record, but has not included the diagnosis in the final diagnostic statement, the physician should be asked whether the diagnosis should be added." ([facility] 2 QTR90. p3-4) EDU
== END 2019-10-12 12:38 | disposition home health service (06) ==
LOC: ASU 13:00 → 3E 13:00

== ENCOUNTER 2022-10-24 08:16 | Observation (INO) ==
--- NOTE | 2022-08-03 15:09 | PAT Medication Instructions ---
Medication Instructions Date of Service August 03, 2022 Home Medications Medication Instructions Recorded diclofenac sodium 1 % topical gel 2 g topical QID PRN Pain #300 grams 10/19/20 Symbicort 160 mcg-4.5 2 puff inhalation BID #10.2 grams 03/31/21 mcg/actuation HFA aerosol inhaler (budesonide-formoterol) Oxygen Home #1 ea 06/29/21 pantoprazole 40 mg tablet,delayed 40 mg PO QAM #30 tabs 08/23/21 release (Protonix) albuterol sulfate 90 mcg/actuation 2 puff inhalation Q6H PRN 05/30/22 aerosol inhaler (Ventolin HFA) Shortness Of Breath #18 grams celecoxib 200 mg capsule (Celebrex) 200 mg PO BID #60 caps 05/30/22 mirtazapine 30 mg tablet 30 mg PO HS #30 tabs 05/30/22 atorvastatin 40 mg tablet 40 mg PO HS #30 tabs 07/25/22 carvedilol 6.25 mg tablet 6.25 mg PO BID #60 tabs 07/25/22 montelukast 10 mg tablet 10 mg PO QPM #30 tabs 07/25/22 ipratropium 0.5 mg-albuterol 3 mg (2.5 mg base)/3 mL nebulization soln 3 ml inhalation QID PRN meclizine 25 mg tablet 25 mg PO TID PRN buspirone 10 mg tablet 10 mg PO BID PRN ketoconazole 2 % topical cream 1 applic topical BID PRN diclofenac sodium 1 % topical gel 2 g topical QID PRN Symbicort 160 mcg-4.5 mcg/actuation HFA aerosol inhaler (budesonide-formoterol) 2 puff inhalation BID pantoprazole 40 mg tablet,delayed release (Protonix) 40 mg PO QAM albuterol sulfate 90 mcg/actuation aerosol inhaler (Ventolin HFA) 2 puff inhalation Q6H PRN celecoxib 200 mg capsule (Celebrex) 200 mg PO BID mirtazapine 30 mg tablet 30 mg PO HS atorvastatin 40 mg tablet 40 mg PO HS carvedilol 6.25 mg tablet 6.25 mg PO BID montelukast 10 mg tablet 10 mg PO QPM Darline/Tumeric 1 gummy PO QAM cholecalciferol (vitamin D3) 100 mcg (4,000 unit) capsule 4,000 unit PO QAM cyclobenzaprine 10 mg tablet 10 mg PO TID PRN gabapentin 300 mg capsule 900 mg PO BID lisinopril 20 mg tablet 20 mg PO QAM potassium chloride 20 mEq tablet,extended release 20 meq PO QAM spironolactone 25 mg tablet 25 mg PO QAM venlafaxine 150 mg capsule,extended release 24 hr 150 mg PO QAM ASK your surgeon for instructions celecoxib 200 mg capsule (Celebrex) 200 mg PO BID STOP taking 2 weeks before surgery (or as soon as possible if surgery is within 2 weeks) Darline/Tumeric 1 gummy PO QAM STOP taking 24 hours before surgery ketoconazole 2 % topical cream 1 applic topical BID PRN diclofenac sodium 1 % topical gel 2 g topical QID PRN DO NOT take the morning of surgery cholecalciferol (vitamin D3) 100 mcg (4,000 unit) capsule 4,000 unit PO QAM cyclobenzaprine 10 mg tablet 10 mg PO TID PRN lisinopril 20 mg tablet 20 mg PO QAM potassium chloride 20 mEq tablet,extended release 20 meq PO QAM spironolactone 25 mg tablet 25 mg PO QAM Take morning of surgery With a small sip of water, OTHERWISE NOTHING TO EAT OR DRINK AFTER MIDNIGHT: ipratropium 0.5 mg-albuterol 3 mg (2.5 mg base)/3 mL nebulization soln 3 ml inhalation QID PRN(if needed) meclizine 25 mg tablet 25 mg PO TID PRN(if needed) buspirone 10 mg tablet 10 mg PO BID PRN(if needed) Symbicort 160 mcg-4.5 mcg/actuation HFA aerosol inhaler (budesonide-formoterol) 2 puff inhalation BID pantoprazole 40 mg tablet,delayed release (Protonix) 40 mg PO QAM albuterol sulfate 90 mcg/actuation aerosol inhaler (Ventolin HFA) 2 puff inhalation Q6H PRN(use if needed; please bring with you to hospital day of surgery if possible) carvedilol 6.25 mg tablet 6.25 mg PO BID gabapentin 300 mg capsule 900 mg PO BID venlafaxine 150 mg capsule,extended release 24 hr 150 mg PO QAM Take evening before surgery ipratropium 0.5 mg-albuterol 3 mg (2.5 mg base)/3 mL nebulization soln 3 ml inhalation QID PRN(if needed) meclizine 25 mg tablet 25 mg PO TID PRN(if needed) buspirone 10 mg tablet 10 mg PO BID PRN(if needed) Symbicort 160 mcg-4.5 mcg/actuation HFA aerosol inhaler (budesonide-formoterol) 2 puff inhalation BID albuterol sulfate 90 mcg/actuation aerosol inhaler (Ventolin HFA) 2 puff inhalation Q6H PRN(if needed) mirtazapine 30 mg tablet 30 mg PO HS atorvastatin 40 mg tablet 40 mg PO HS carvedilol 6.25 mg tablet 6.25 mg PO BID montelukast 10 mg tablet 10 mg PO QPM cyclobenzaprine 10 mg tablet 10 mg PO TID PRN(if needed) gabapentin 300 mg capsule 900 mg PO BID Other Notes If you have any questions please call us at [phone] or [phone] or [phone] or [phone]
--- NOTE | 2022-08-17 11:54 | Anesthesiology Consultation ---
Date of Service August 17, 2022 Assessment & Plan (1) Encounter for pre-operative examination: Chart Review Chart Review: Acceptable Risk for Surgery and Patient seen in Pre Admission Testing -Due to BMI and PMH- patient is NOT an OPJ candidate Per PAT appt on 08/17/22, patient denies any recent travel or large group activities. Pt is vaccinated for Covid. Will leave to surgeon's discretion if preop Covid testing needed. Educated on importance of using Covid precautions one week prior to surgery Pt seen by pulm 07/07/22= history of mild restrictive disease/asthma. Continue Symbicort. Update PFTs. MC/obesity hypoventilation syndrome- uses CPAP but not supplemental oxygen. Encouraged weight loss. Obesity- patient states weight has been stable. Defers referral to weight management but will discuss further after PFTs. Follow up in on year Evacuation hematoma and wound closure right hip 10/11/19= Done under GA with Grade 2 view with MAC #3. ETT #7. DL x 1, atraumatic. Preexcisting bruise noted to right lower lip. Teaching & Discussion Pre-Anesthesia Teaching/Discussion Notes: Instructed NPO after midnight before surgery,except medications with 15 cc of water. Medication instructions provided according to the PAT guidelines. History Surgery Operation Date: 09/12/22 10:35 Proposed Procedures p Left Total Shoulder Arthroplasty Dejah - Oscar Leon, Height/Weight Height: 5 ft 3 in Weight: 146.4 kg Allergies Allergy/AdvReac Type Severity Reaction Status Date / Time amoxicillin Allergy Mild RASH Verified 08/02/22 13:18 rofecoxib Allergy Unknown Unknown Verified 08/02/22 13:18 simvastatin AdvReac Intermediate Muscle Pain Verified 08/02/22 13:18 aspirin AdvReac Mild PER Verified 08/02/22 13:18 PATIENT, LISTED B/C SHE HAS ASTHMA-CAN USE W/O ISSUES NO Medications Home Medications Medication Instructions Recorded Confirmed Last Taken ipratropium 0.5 mg-albuterol 3 mg 3 ml inhalation QID PRN shortness 08/13/18 08/02/22 1 Month Ago (2.5 mg base)/3 mL nebulization of breath or wheezing #2 mL ~08/06/19 soln meclizine 25 mg tablet 25 mg PO TID PRN Dizziness 08/13/18 08/02/22 1 Month Ago ~08/06/19 buspirone 10 mg tablet 10 mg PO BID PRN Anxiety 10/02/19 08/02/22 Unknown ketoconazole 2 % topical cream 1 applic topical BID PRN Rash 06/23/20 08/02/22 Unknown diclofenac sodium 1 % topical gel 2 g topical QID PRN Pain #300 grams 10/19/20 08/02/22 Unknown Symbicort 160 mcg-4.5 2 puff inhalation BID #10.2 grams 03/31/21 08/02/22 Unknown mcg/actuation HFA aerosol inhaler (budesonide-formoterol) Oxygen Home #1 ea 06/29/21 07/05/22 Unknown albuterol sulfate 90 mcg/actuation 2 puff inhalation Q6H PRN 05/30/22 08/02/22 Unknown aerosol inhaler (Ventolin HFA) Shortness Of Breath #18 grams celecoxib 200 mg capsule (Celebrex) 200 mg PO BID #60 caps 05/30/22 08/02/22 Unknown mirtazapine 30 mg tablet 30 mg PO HS #30 tabs 05/30/22 08/02/22 Unknown atorvastatin 40 mg tablet 40 mg PO HS #30 tabs 07/25/22 08/02/22 Unknown carvedilol 6.25 mg tablet 6.25 mg PO BID #60 tabs 07/25/22 08/02/22 Unknown montelukast 10 mg tablet 10 mg PO QPM #30 tabs 07/25/22 08/02/22 Unknown Darline/Tumeric 1 gummy PO QAM 08/02/22 08/02/22 Unknown cholecalciferol (vitamin D3) 100 4,000 unit PO QAM 08/02/22 08/02/22 Unknown mcg (4,000 unit) capsule cyclobenzaprine 10 mg tablet 10 mg PO TID PRN Muscle Spasm 08/02/22 08/02/22 Unknown gabapentin 300 mg capsule 900 mg PO BID 08/02/22 08/02/22 Unknown lisinopril 20 mg tablet 20 mg PO QAM 08/02/22 08/02/22 Unknown potassium chloride 20 mEq 20 meq PO QAM 08/02/22 08/02/22 Unknown tablet,extended release spironolactone 25 mg tablet 25 mg PO QAM 08/02/22 08/02/22 Unknown venlafaxine 150 mg 150 mg PO QAM 08/02/22 08/02/22 Unknown capsule,extended release 24 hr pantoprazole 40 mg tablet,delayed 40 mg PO QAM #30 tabs 08/16/22 Unknown release (Protonix) Past Medical History Medical History (Updated 08/19/22 @ 08:59 by Karolyn Barnes PA-C) Anxiety and depression Asthma STABLE Cervical radiculopathy Chronic obstructive pulmonary disease STABLE; ON O2 2L at HS Congestive heart failure REMOTE-HX- STABLE AND CONTROLLED EF 60% on 2015 ECHO Depression GERD (gastroesophageal reflux disease) CONTROLLED Herpes zoster Around 2020- no recent issues Hiatal hernia Hypercholesteremia Hypertension Migraine HX Morbid obesity BMI 56.7 Pulmonary embolism ~2012- on AC x 1 year - then d/'edwardo - no issues since Sleep apnea o2 at 2L n/c at hs SOBOE (shortness of breath on exertion) CHRONIC/MILD AND STABLE Exercise / Class Metabolic Activity III < 4 Walking/Shop/Light housework (one flight of stairs- no chest pain, mild SOB- uses cane to ambulate ) Past Family History Family History Father Prostate cancer Diabetes Myocardial infarction Mother Myocardial infarction Family/Other Heart disease Hypertension Other Family history non-contributory No family history of adverse response to anesthesia Denies family history of Ovarian cancer Breast cancer Colorectal cancer Past Surgical History Surgical History H/O foot surgery History of bilateral carpal tunnel release History of esophagogastroduodenoscopy (EGD) History of hip surgery evacuation of seroma and wound closure right hip 10/11/19 Dr. Leon History of open reduction and internal fixation (ORIF) procedure revision femoral stem, ORIF rigth lesser trochaner 10/03/19 Dr. Leon History of right hip replacement (~08/2019) History of tonsillectomy and adenoidectomy History of total left hip replacement (~2017) Previous back surgery S/P insertion of spinal cord stimulator 2/2 LBP/RADICULOPATHY; PATIENT ADVISED TO BRING REMOTE AM DOS (OR NOTIFIED) Status post correction of deviated nasal septum Status post insertion of spinal cord stimulator Past Anesthesia History No Hx of Anesthesia Complications and No Family Hx of Anesthesia Complications History of PONV No Hx of PONV and No Hx of Motion Sickness Social History Smoking Status: Never smoker Do You Dip or Chew Tobacco: No Hx Alcohol Use: Yes Alcohol type: wine alcohol intake frequency: holidays/special occasions only Hx Substance Use: No substance use type: does not use Review of Systems Chronic cough- post nasal drip to allergies. Patient denies chest pain, shortness of breath at rest, wheezing, palpitations. No hx of seizures, stroke, NH. No hx of blood transfusions Physical Exam Vital Signs VITALS BP 143/77 P 64 TEMP 98.8 SP02 94% on RA RESP 16 Constitutional no acute distress ENMT Mouth: no TMJ clicking Thyromental Distance: < 3.5 Finger Breadths (3.0) Mallampati Class: II Neck + limited neck extension (minimal) Respiratory normal respiratory effort; no respiratory distress Auscultation: lungs clear to auscultation bilaterally; no wheezes Cardiovascular Rate/Rhythm: regular rate and regular rhythm Heart Sounds: no murmur Vessels: no carotid bruit Musculoskeletal Spine: no pain with cervical ROM Extremities: extremities normal to inspection Psychiatric Orientation: alert Lab Results Anesthesia Preop Results Results Anesthesia Widget: WBC 6.39 K/ul (4.8-10.8) 08/17/22 Hgb 14.0 g/dl (12.0-16.0) 08/17/22 Hct 44.0 % (37.0-47.0) 08/17/22 Plt 282 K/uL (130-400) 08/17/22 Na 140 mmol/L (136-145) 08/17/22 K 4.7 mmol/L (3.5-5.1) 08/17/22 Cl 104 mmol/L (98-107) 08/17/22 CO2 30 mmol/L (21-32) 08/17/22 BUN 24 mg/dl (6-23) H 08/17/22 Creat 1.14 mg/dl (0.6-1.2) 08/17/22 Glucose Level 114 mg/dl (70-99(Fasting)) H 08/17/22 PT 10.3 Seconds (9.0-12.0) 08/17/22 PTT 25.3 Seconds (21.0-31.0) 08/17/22 INR 0.9 (0.9-1.1) 08/17/22 Blood Type A Positive 08/17/22 Antibody Screen NEGATIVE 08/17/22 Testing Electrocardiogram Date: 08/17/22 Findings: + NSR @ (61bpm) Normal EKG per cardio Chest X-Ray Date: 08/17/22 Findings: + NAD FINDINGS: Spinal stimulator is seen. The aorta is tortuous. The remainder of the cardiom ediastinal silhouette is unremarkable. The lungs are clear. No evidence of pleural effusion or pneumothorax. Pulmonary Function Test Date: 07/28/22 Moderate restrictive lung dysfunction Mild decreased in TLC with very severe decrease in ERV No obstructive lung dysfunction, insignificant bronchodilator response Normal DLCO Suggest clinical correlation COVID-19 Risk Screen Screening Information COVID-19 Screen Date: 08/17/22 Exposure 21 Days Family/Household +COVID Last 21 Days: No Exposure 10 Days Any COVID Exposure Last 10 Days: No Symptoms Last 10 Days Experienced COVID Sx Last 10 Days: No + COVID 0-90 Days COVID + in Last 0-90 Days: No Risk Plan COVID Risk Plan: No Risk Identified Patient Education COVID Preop Screening Education Complete: Yes
--- NOTE | 2022-10-20 07:47 | History & Physical Report ---
Date of Service October 20, 2022 Assessment & Plan (1) Rotator cuff tear, left: We will proceed with a left reverse shoulder arthroplasty. Postoperatively she will be placed in a sling and kept overnight in the hospital for postop medical management. She plans to see [facility] upon discharge. History of Present Illness Chief Complaint: Cuff tear arthropathy of the left shoulder. Primary Care Provider: SARAH Moulton Oralia is a pleasant 67-year-old female, who has been dealing with a cuff tear arthropathy of her left shoulder. We have done MRI to confirm the diagnosis. She has decreased range of motion and constant pain in the shoulder. She has failed extensive conservative treatment. She has elected to proceed with a left reverse shoulder arthroplasty. . Allergies Allergy/AdvReac Type Severity Reaction Status Date / Time amoxicillin Allergy Mild RASH Verified 10/19/22 14:52 rofecoxib Allergy Unknown Unknown Verified 10/19/22 14:52 simvastatin AdvReac Intermediate Muscle Pain Verified 10/19/22 14:52 aspirin AdvReac Mild PER Verified 10/19/22 14:52 PATIENT, LISTED B/C SHE HAS ASTHMA-CAN USE W/O ISSUES NO Home Medications Medication Instructions Recorded Confirmed Type ipratropium 0.5 mg-albuterol 3 mg 3 ml inhalation QID PRN shortness 08/13/18 10/19/22 History (2.5 mg base)/3 mL nebulization of breath or wheezing #2 mL soln meclizine 25 mg tablet 25 mg PO TID PRN Dizziness 08/13/18 10/19/22 History buspirone 10 mg tablet 10 mg PO BID PRN Anxiety 10/02/19 10/19/22 History ketoconazole 2 % topical cream 1 applic topical BID PRN Rash 06/23/20 10/19/22 History diclofenac sodium 1 % topical gel 2 g topical QID PRN Pain #300 grams 10/19/20 10/19/22 Rx Symbicort 160 mcg-4.5 2 puff inhalation BID #10.2 grams 03/31/21 10/19/22 Rx mcg/actuation HFA aerosol inhaler (budesonide-formoterol) Oxygen Home #1 ea 06/29/21 10/19/22 Rx celecoxib 200 mg capsule (Celebrex) 200 mg PO BID #60 caps 05/30/22 10/19/22 Rx mirtazapine 30 mg tablet 30 mg PO HS #30 tabs 05/30/22 10/19/22 Rx atorvastatin 40 mg tablet 40 mg PO HS #30 tabs 07/25/22 10/19/22 Rx carvedilol 6.25 mg tablet 6.25 mg PO BID #60 tabs 07/25/22 10/19/22 Rx montelukast 10 mg tablet 10 mg PO QPM #30 tabs 07/25/22 10/19/22 Rx Darline/Tumeric 1 gummy PO QAM 08/02/22 10/19/22 History cholecalciferol (vitamin D3) 100 4,000 unit PO QAM 08/02/22 10/19/22 History mcg (4,000 unit) capsule cyclobenzaprine 10 mg tablet 10 mg PO TID PRN Muscle Spasm 08/02/22 10/19/22 History gabapentin 300 mg capsule 900 mg PO BID 08/02/22 10/19/22 History lisinopril 20 mg tablet 20 mg PO QAM 08/02/22 10/19/22 History potassium chloride 20 mEq 20 meq PO QAM 08/02/22 10/19/22 History tablet,extended release spironolactone 25 mg tablet 25 mg PO QAM 08/02/22 10/19/22 History venlafaxine 150 mg 150 mg PO QAM 08/02/22 10/19/22 History capsule,extended release 24 hr pantoprazole 40 mg tablet,delayed 40 mg PO QAM #30 tabs 08/16/22 10/19/22 Rx release (Protonix) albuterol sulfate 90 mcg/actuation 2 puff inhalation Q6H PRN 10/18/22 10/19/22 Rx aerosol inhaler (Ventolin HFA) Shortness Of Breath #18 grams Past Med/Surg History Medical History Anxiety and depression Asthma STABLE Cervical radiculopathy Chronic obstructive pulmonary disease STABLE; ON O2 2L at HS Congestive heart failure REMOTE-HX- STABLE AND CONTROLLED EF 60% on 2015 ECHO Depression GERD (gastroesophageal reflux disease) CONTROLLED Herpes zoster Around 2020- no recent issues Hiatal hernia Hypercholesteremia Hypertension Migraine HX Morbid obesity BMI 56.7 Pulmonary embolism ~2012- on AC x 1 year - then d/'edwardo - no issues since Sleep apnea o2 at 2L n/c at hs SOBOE (shortness of breath on exertion) CHRONIC/MILD AND STABLE Surgical History H/O foot surgery History of bilateral carpal tunnel release History of esophagogastroduodenoscopy (EGD) History of hip surgery evacuation of seroma and wound closure right hip 10/11/19 Dr. Leon History of open reduction and internal fixation (ORIF) procedure revision femoral stem, ORIF rigth lesser trochaner 10/03/19 Dr. Leon History of right hip replacement (~08/2019) History of tonsillectomy and adenoidectomy History of total left hip replacement (~2017) Previous back surgery S/P insertion of spinal cord stimulator 2/2 LBP/RADICULOPATHY; PATIENT ADVISED TO BRING REMOTE AM DOS (OR NOTIFIED) Status post correction of deviated nasal septum Status post insertion of spinal cord stimulator Family History Father Prostate cancer Diabetes Myocardial infarction Mother Myocardial infarction Family/Other Heart disease Hypertension Other Family history non-contributory No family history of adverse response to anesthesia Denies family history of Ovarian cancer Breast cancer Colorectal cancer Social History Smoking Status: Never smoker Second Hand Exposure: No; Do You Dip or Chew Tobacco: No; Hx Alcohol Use: Yes Alcohol type: wine Alcohol Intake Frequency: 2-4 x/Month Alcohol Intake Frequency Comment: one drink once a week or so Hx Substance Use: No Preferred Language: [place] Communication Ability: Effective Visual Impairment: No Limitations Hearing Ability: Normal Batter Depositor Required: No Beliefs That Will Affect Care: None marital status: Current Living Situation: Spouse current occupational status: disabled How many Children do You have: 0 Feels Safe at Home: Yes Childhood Exposure to Second-Hand Smoke: Yes Diet: regular caffeine: Yes (Coffee) Dental Care, Regularly: No Physical Activity Frequency: Daily Physical Activity Frequency Comment: Walking and daily housework/chores Seatbelt Use: always Sunscreen Use: Yes Assistive Devices: Cane, Nebulizer and Oxygen - at Night Review of Systems All systems reviewed & are unremarkable except as noted in HPI & below. Physical Exam On physical examination of left shoulder, she has decreased range of motion with about 90 degrees of forward elevation 90 degrees of abduction. She has 4 out of 5 motor strength throughout.. Constitutional WD/WN, vitals as above Eyes PERRL, conjunctivae normal, anicteric sclerae ENMT external ear and nose normal, oropharynx normal Neck trachea midline, no thyromegaly Respiratory normal respiratory effort, lungs clear to auscultation Cardiovascular RRR, no murmur, no edema Gastrointestinal (Abdomen) normal bowel sounds, soft, nontender, no hepatosplenomegaly Skin no rashes, warm and dry Psychiatric A+Ox3, euthymic affect Results & Data Results & Data Laboratory Results . Diagnostic Findings MRI of the left shoulder shows a massive chronic retracted rotator cuff tear with retraction back to the level of the glenoid.. PG Care Time/CCT Total # of Minutes Spent Total Time Spent with Patient: Total time spent is greater than 50% in coordination of care (as documented) at patient's floor/unit and/or counseling patient: Coding Level of Care Code None Diagnoses Rotator cuff tear, left M75.102
[~2022-10-24 08:16] MED LIST changes: +ACETAMINOPHEN 500 MG TAB PO SCH; +BUPIVACAINE 0.5 % 5 MG/1 ML PF 10ML VIAL ONE; +FAMOTIDINE 20 MG TAB PO SCH; +GABAPENTIN 300 MG CAP PO SCH; +LR 60ML/HR IV SCH; +ORTHO JOINT MIX INFIL SCH; +TRANEXAMIC ACID 1,000 MG **IV Intra-op IV SCH; +TRANEXAMIC ACID 1,000 MG **IV Pre-op IV SCH; -VANCOMYCIN HCL 2,000 MG in SODIUM CHLORIDE 0.9% 500 ML IV SCH; +dexAMETHasone 4 MG TAB PO SCH
[2022-10-24] MEDS ORDERED: fentaNYL citrate PF 100 MCG/2 ML VIAL ONE (08:44)
[2022-10-24] MEDS ORDERED: MIDAZOLAM HCL 1 MG/ML 2ML VIAL ONE (08:44)
[2022-10-24 08:52] LABS: Basophils # (auto) 0.04 K/uL (0-0.2); Basophils % (auto) 0.6 %; Eosinophils # (auto) 0.06 K/uL (0-0.50); Eosinophils % (auto) 0.9 %; Hematocrit (blood only) 43.5 % (37.0-47.0); Hemoglobin 13.8 g/dl (12.0-16.0); Immature Granulocytes # (auto) 0.01 K/uL (0.01-0.20); Immature Granulocytes % (auto) 0.1 %; Lymphocytes # (auto) 1.63 K/uL (1.2-3.4); Mean Corpuscular Hemoglobin 30.9 pg (25.0-34.0); Mean Corpuscular Hgb Conc 31.7 g/dL (32.0-36.0); Mean Corpuscular Volume 97.5 fL (80.0-100.0); Monocytes # (auto) 0.52 K/uL (0.11-0.59); Monocytes % (auto) 7.7 %; Neutrophils # (auto) 4.53 K/uL (1.40-6.50); Neutrophils % (auto) 66.7 %; Platelet Count 260 K/uL (130-400); RDW Coefficient of Variation 12.4 % (11.5-14.5); RDW Standard Deviation 44.5 fL (36.4-46.3); Red Blood Count 4.46 M/uL (4.20-5.40); White Blood Count 6.79 K/ul (4.8-10.8)
[2022-10-24 09:03] LABS: BUN Creatinine Ratio 23.1 (10-20); Calcium 9.5 mg/dl (8.6-10.3); Creatinine Clr Calc Pharmacy 95.9 ml/min; Est GFR (African American) 89.9 ml/min; Est GFR (Non-African American) 77.6 ml/min; Potassium 4.3 mmol/L (3.5-5.1)
[2022-10-24 09:13] LABS: INR 0.9 (0.9-1.1); Partial Thromboplastin Ratio 0.9; Partial Thromboplastin Time 24.8 Seconds (21.0-31.0); Prothrombin Time 10.2 Seconds (9.0-12.0)
--- NOTE | 2022-10-24 09:28 | History & Physical Bridge Note ---
Date of Service October 24, 2022 History & Physical Bridge Note I have examined the patient, reviewed the History & Physical and in the interval since the performance of the History & Physical I have noted the following changes of clinical significance: no changes noted
[2022-10-24] MEDS ORDERED: ceFAZolin 3000MG/72.5 ML BAG IV ONE (09:35)
[2022-10-24] MEDS ORDERED: ORTHO JOINT ANESTHETIC ONE (10:17)
[2022-10-24] MEDS ORDERED: PROPOFOL IV EMULSION 10 MG/ML 20 ML VIAL IV ONE (10:57)
[2022-10-24] MEDS ORDERED: LIDOCAINE 2% 2 ML VIAL/AMP(20MG/ML) INFIL ONE (10:57)
[2022-10-24] MEDS ORDERED: DEXAMETHASONE SOD INJ 4 MG/ML VIAL ONE (10:58)
[2022-10-24] MEDS ORDERED: ROCURONIUM BROMIDE 10 MG/ML 5 ML VIAL IV ONE (10:58)
[2022-10-24] MEDS ORDERED: ONDANSETRON INJ 2 MG/ML 2 ML VIAL ONE (10:58)
[2022-10-24] MEDS ORDERED: ePHEDrine sulfate 50 MG/ML AMP ONE (11:21)
[2022-10-24] MEDS ORDERED: GLYCOPYRROLATE 0.2 MG/ML VIAL ONE (11:34)
[2022-10-24] MEDS ORDERED: NEOSTIGMINE METHYLSULFATE 1 MG/ML 10ML VIAL ONE (11:34)
--- NOTE | 2022-10-24 11:37 | Operative Report ---
PG Post Operative Report Pre & Post Diagnosis Operation Date: 10/24/22 10:00 Pre-Op Diagnosis: Cuff tear arthropathy left shoulder with tendinopathy long head the biceps tendon Post-Op Diagnosis: Cuff tear arthropathy left shoulder with tendinopathy long head of biceps tendon I identified the patient and participated in the time-out.: Yes Procedure Operation Date: 10/24/22 10:00 Actual Procedures p Left Reverse Total Shoulder Arthroplasty(Left) with open biceps tenodesis as a distinct and separate procedure (modifier 59)- Oscar Leon DO Surgeon Oscar Leon DO Assistant Restaurant General Manager Oscar So PA-C Estimated Blood Loss 150 Findings Consistent with Post-Op Diagnosis Specimens Left humeral head Description of Procedure A CPT code modifier 59: The long head of the biceps tendon was enlarged and inflamed consistent with tendinopathy. A tenodesis was opted. This was a separate and distinct portion of the procedure. For these reasons, a CPT code modifier 59 will be added to this case. Implants used: I used a [employer] Comprehensive reverse total shoulder arthroplasty system with a size 12 press fit micro humeral stem, a +6 offset humeral tray and a +3 retentive humeral bearing, a 25 mm baseplate with a 6.5 mm central screw and superior and inferior locking screws, and a size 36 mm eccentric glenosphere. Oralia arrived at [facility] for the above procedure. She was seen in the preoperative holding area and the operative extremity was identified and signed. She was given a preoperative antibiotic, TXA, and an interscalene nerve block. She was taken back to the operating room, laid on table in supine position, and put under general anesthesia. She was then put into the beachchair position. The shoulder was then prepped and draped in sterile fashion. A timeout was done and the patient and the operative extremity was properly identified. A deltopectoral approach was used. Dissection was taken down through the fascia and the deltoid was retracted laterally and the conjoined tendon was retracted medially. The anterior shoulder was exposed. The biceps groove was opened up and the biceps tendon was examined extensively. The biceps tendon demonstrated enlargement and inflammatory changes consistent with longstanding inflammation in the context of osteoarthritis and cuff arthropathy. The long head of the biceps tendon was then tenodesed to the upper border of the pectoralis major. This was a separate and distinct portion of the procedure. The subscapularis was then directly released off the lesser tuberosity with a peel technique. The inferior capsule was released and the humeral head was dislocated. A canal finding reamer was sent down the center of the humeral canal. Sequential reaming up to a size 12 reamer was done. Off that reamer, a proximal humeral resection guide was placed. The proximal humerus was resected at 135 of inclination and 25 of retroversion. Osteophytes were then removed and the glenoid was exposed. Time was spent doing a complete capsular and labral release. The glenoid guide was then placed in the inferior aspect of the glenoid. A 3.2 mm Steinmann pin was then placed into the glenoid vault at 10 of inclination. The glenoid baseplate was then reamed. The final size 25 mm baseplate was then impacted in the place. A 6.5 mm central screw was then placed followed by superior and inferior locking screws. A 36 mm eccentric glenosphere was then impacted into place. Surrounding soft tissues were then injected with 100 cc an orthopedic pain control cocktail. The proximal humerus was then exposed. Sequential broaching of the humerus up to a size 12 broach was done. Off that broach a +6 offset and +3 retentive humeral tray was trialed. The shoulder was then reduced, brought through a full range of motion, and felt to be stable. The shoulder was then dislocated and the broach was removed. The final size 12 micro press-fit humeral stem was then impacted into place. A +3 retentive humeral bearing was then snapped onto a +6 offset humeral tray. The humeral tray was then impacted onto the humeral stem. The shoulder was once again reduced, brought through a full range of motion, and felt to be stable. The subscapularis was retracted and unable to be repaired. A dilute betadyne lavage was then done for 3 minutes. The joint was then irrigated with normal saline solution. Hemostasis was obtained. The interval was closed with 2-0 Vicryl suture. The skin was then closed with 2-0 Vicryl and brad. A Silverlon dressing was placed and the arm was rested in a regular arm sling. She was then extubated and transferred to a hospital bed. She taken to the postanesthesia care unit in stable condition. She tolerated the procedure well. Oscar So PA-C, was present for the entire procedure. He was critical for patient positioning, prepping, draping, retraction exposure, wound closure and application of sterile dressing. I attest to the content of the Intraoperative Record and any orders documented therein. Any exceptions are noted below.
--- NOTE | 2022-10-24 12:34 | XRay Report ---
XR shoulder LT min 2V routine CLINICAL HISTORY: Post shoulder surgery TECHNIQUE: 3 views of the left shoulder were obtained. Comparison: Comparison is made to shoulder radiograph 12/07/2021 FINDINGS: Patient is status post shoulder arthroplasty with expected postsurgical changes including soft tissue swelling and subcutaneous emphysema. No periarticular lucency or hardware fracture is seen. IMPRESSION: Expected postoperative appearance status post placement of shoulder arthroplasty. ACT 112: Negative or not required by law. Electronically signed by: Jori Waddell M.D. 10/24/2022 12:33 PM
[2022-10-24] MEDS ORDERED: MECLIZINE HCL 25 MG TAB PO PRN (13:33)
[2022-10-24] MEDS ORDERED: KETOCONAZOLE 2% CR 15 GM TUBE EXT PRN (13:33)
[2022-10-24] MEDS ORDERED: DICLOFENAC SOD 1% GEL 100 GM TUBE EXT PRN (13:33)
[2022-10-24] MEDS ORDERED: METOCLOPRAMIDE HCL INJ 5 MG/ML 2 ML VIAL IV PRN (13:33)
[2022-10-24] MEDS ORDERED: oxyCODONE HCL IR 5 MG TAB (IMMEDIATE RELEASE) PO PRN (13:33)
[2022-10-24] MEDS ORDERED: bisacodyL 10 MG SUPP PR PRN (13:33)
[2022-10-24] MEDS ORDERED: busPIRone 5 MG TAB PO PRN (13:33)
[2022-10-24] MEDS ORDERED: CYCLOBENZAPRINE HCL 10 MG TAB PO PRN (13:33)
[2022-10-24] MEDS ORDERED: NALOXONE HCL 0.4 MG/1 ML VIAL/CARP IV PRN (13:33)
[2022-10-24] MEDS ORDERED: ONDANSETRON INJ 2 MG/ML 2 ML VIAL IV PRN (13:33)
[2022-10-24] MEDS ORDERED: ALBUTEROL HFA 8 GM INHALER INH PRN (13:33)
[2022-10-24] MEDS ORDERED: HYDROmorphone INJ 0.5 MG/0.5 ML SYR IV PRN (13:33)
[2022-10-24] MEDS ORDERED: MAGNESIUM HYDROXIDE SUSP 30 ML UDC PO PRN (13:33)
[2022-10-24] MEDS ORDERED: ALBUT/IPRATROP 3MG/0.5MG NEB 3 ML VIAL INH PRN (13:33)
--- NOTE | 2022-10-24 13:58 | Anesthesiology Progress Note ---
Date of Service October 24, 2022 Anesthesia Post Procedure Vital Signs Vital Signs: Temp Pulse Pulse Resp BP Pulse Ox O2 Del Method 10/24/22 13:34 35.8 C L 65 22 166/77 H 98 Nasal Cannula 10/24/22 13:01 36.5 C 69 22 162/75 H 94 Nasal Cannula 10/24/22 12:35 36.4 C L 64 17 170/76 H 97 Nasal Cannula 10/24/22 12:45 36.4 C L 60 15 173/79 H 98 Nasal Cannula 10/24/22 12:25 36.4 C L 64 18 177/87 H 99 Oxymask 10/24/22 12:15 65 16 179/90 H 99 Oxymask 10/24/22 12:05 64 14 186/99 H 97 Oxymask 10/24/22 11:59 36.0 C L 69 18 204/91 H 97 Oxymask 10/24/22 08:34 36.6 C 63 20 170/77 H 95 Room Air O2 Flow Rate 10/24/22 13:34 4 10/24/22 13:01 4 10/24/22 12:35 3 10/24/22 12:45 3 10/24/22 12:25 3 10/24/22 12:15 6 10/24/22 12:05 10 10/24/22 11:59 15 10/24/22 08:34 Pain Intensity Left Shoulder: Pain Intensity: 3 Left Back: Pain Intensity: 2 Transfer of Care Handoff Completed per policy Notes Mental Status: alert / awake / arousable and participated in evaluation Patient Amnestic to Procedure: Yes Nausea / Vomiting: adequately controlled Pain: adequately controlled Airway Patency, RR, SpO2: stable & adequate BP & HR: stable & adequate Hydration State: stable & adequate Anesthetic Complications: no major complications apparent
[2022-10-24] MEDS: FLUTICASONE/VILANTEROL 200/25MCG 14 PUFFS/INHALER INH SCH (14:34)
[2022-10-24] MEDS: KETOROLAC TROMETHAMINE 15 MG/ML VIAL IV SCH ×2 (14:34→20:47)
[2022-10-24] MEDS: ACETAMINOPHEN 500 MG TAB PO SCH ×2 (14:34→21:55)
[2022-10-24] MEDS: SODIUM CHLORIDE 0.9% 1000ML 1,000 ML IV SCH (15:26)
[2022-10-24] MEDS ORDERED: ALLERGY Noted to ORDERED Medication SCH (16:00)
[2022-10-24] MEDS: carvediloL 6.25 MG TAB PO SCH (17:40)
[2022-10-24] MEDS: ceFAZolin 2000MG 2,000 MG/15 ML SYR IV SCH (17:40)
[2022-10-24] MEDS: DOCUSATE SODIUM 100 MG CAP PO SCH (20:45)
[2022-10-24] MEDS: GABAPENTIN 300 MG CAP PO SCH (20:45)
[2022-10-24] MEDS ORDERED: MONTELUKAST SODIUM 10 MG TABLET PO SCH (21:00)
[2022-10-24] MEDS ORDERED: SENNA 8.6 MG TAB PO SCH (21:00)
[2022-10-24] MEDS ORDERED: MIRTAZAPINE TAB 15 MG TAB PO SCH (21:00)
[2022-10-24] MEDS ORDERED: ATORVASTATIN 40 MG TAB PO SCH (21:00)
[2022-10-25] MEDS: KETOROLAC TROMETHAMINE 15 MG/ML VIAL IV SCH ×2 (02:00→08:00)
[2022-10-25] MEDS: ceFAZolin 2000MG 2,000 MG/15 ML SYR IV SCH (02:00)
[2022-10-25] MEDS: SODIUM CHLORIDE 0.9% 1000ML 1,000 ML IV SCH (02:05)
[2022-10-25] MEDS: ACETAMINOPHEN 500 MG TAB PO SCH (06:13)
--- NOTE | 2022-10-25 07:10 | Orthopedic Progress Note ---
Date of Service October 25, 2022 Assessment & Plan (1) Status post reverse total replacement of left shoulder: Overall she is doing very well. She is not having much pain in the left shoulder. She will be seen by physical therapy today for ambulation and range of motion exercises. The nursing staff should be able to wean her off her oxygen today. As long as she is able to be off her oxygen, she can be discharged home. She will follow-up with orthopedics in 2 weeks. Larry Barton was seen and examined at bedside this morning. Overall she is doing very well. She is not having much pain in the left shoulder. She is still on oxygen but she is able to take a deep breath. We should be able to wean her off today. She has no complaints.. Review of Systems All systems reviewed & are unremarkable except as noted in HPI & below. Physical Exam On physical examination of left shoulder, the dressing is clean and dry. She has active motion of her hand and her wrist. She is wearing her sling as instructed.. Results & Data Results & Data Laboratory Results . Diagnostic Findings Postoperative x-rays of the left shoulder show the prosthesis to be in anatomic alignment without any evidence of fracture, screws, or loosening.. PG Care Time/CCT Total # of Minutes Spent Total Time Spent with Patient: Total time spent is greater than 50% in coordination of care (as documented) at patient's floor/unit and/or counseling patient: Coding Level of Care Code 63271 Post Operative Follow-Up Diagnoses Status post reverse total replacement of left shoulder Z96.612
--- NOTE | 2022-10-25 07:11 | Discharge Summary ---
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 We have done MRI to confirm the diagnosis. She has decreased range of motion and constant pain in the shoulder. She has failed extensive conservative treatment. She has elected to proceed with a left reverse shoulder arthroplasty. . Admission Exam (Per Admitting) On physical examination of left shoulder, she has decreased range of motion with about 90 degrees of forward elevation 90 degrees of abduction. She has 4 out of 5 motor strength throughout.. Principal Diagnosis Same as "Discharge Diagnosis" noted below under Discharge Instructions. Discharge Exam On physical examination of left shoulder, the dressing is clean and dry. She has active motion of her hand and her wrist. She is wearing her sling as instructed.. Discharge Data Procedures Performed Operation Date: 10/24/22 10:00 Actual Procedures p Left Reverse Total Shoulder Arthroplasty(Left) - Oscar Leon DO Ordered Studies 10/24/22 05:00 US - OR guided needle placemen Routine Hospital Course (1) Status post reverse total replacement of left shoulder: On October 24, 2022 Oralia arrived at [facility] and underwent a left reverse shoulder replacement without complication. She had a general anesthetic and a left interscalene nerve block. Postoperatively she was placed in a sling and transferred to the general orthopedic floors. Her hospital course was uneventful. On postop day #1, her vital signs were stable and her pain was well controlled. She was able to participate well with physical therapy doing ambulation and range of motion exercises. She was then discharged home. She will follow-up with orthopedics in 2 weeks. PG Care Time/CCT Total # of Minutes Spent Total Time Spent with Patient: Total time spent is greater than 50% in coordination of care (as documented) at patient's floor/unit and/or counseling patient: Discharge Plan Discharge Items Patient Disposition: Home - Home Health Services Reason For Visit: Left Shoulder Degenerative Joint Disease Discharge Diagnosis: Left reverse shoulder replacement Activity: Per Instructions section Non-emergency contact: Surgeon Call non-emergency contact if: your wound has increased redness and your wound has increased drainage Follow-up/Referrals: Lashawn Servin CRNP [Primary Care Provider] - Diet: Regular Addtl Attending Provider Instructions: Activity and Therapy Recommendations: * If you are using [facility] then therapy will be provided at your home until they feel you have accomplished all of your goals. * If you are using [facility] then Physical Therapy will be provided until they feel you are ready to start Outpatient Physical Therapy. * If you are not using home therapy then Outpatient Physical Therapy should start about 3-5 days from your day of surgery. Therapy will last about 8-12 weeks * Wear your sling for 3 weeks, unless otherwise instructed. You may remove your sling to shower and to dress, but otherwise, you should be in your sling at all times, including while sleeping * The shoulder replacement is very stable and you can use your hand while in the sling * You were shown a series of exercises in the hospital. Do these exercises daily including the exercises you were shown in physical therapy. Medications: * Narcotic You will likely be sent home from the hospital with a prescription for the narcotic pain medication that worked best throughout your stay. * Other medications may be prescribed for specific circumstances. If you have any questions, please call the office at . * Resume previous home medications unless otherwise instructed Dressing Care: Leave the Silverlon dressing in place for 7 days. After 7 days you may remove the dressing. If the incision is not draining then you may leave the brad open to air. If there is a little bit of drainage or if the brad are getting stuck on your clothing then cover the incision with a dry dressing. The brad will be removed at your 2 week follow-up appointment. Showering: You may shower with the Silverlon dressing in place. Do not let the shower spray hit the dressing directly. Pat the Silverlon dressing dry. If the dressing becomes wet underneath, then simply remove the dressing. Keep the incision dry until you are 7 days out from the day of surgery. After 7 days you may remove the Silverlon dressing and shower with the brad exposed. Let soapy water run over the brad and pat them dry. Do not scrub or soak the incision. Things To Watch For: * Drainage from the incision site that occurs more than one week after your surgery. * Increased redness at the incision site. * Fever above 102 degrees Fahrenheit. * Unusual chest pain or shortness of breath. * Call [facility] at with any of the above problems Follow-Up Visit: Follow-up with Dr. Leon's PA (Oscar So) 2-3 weeks after your day of surgery. He will remove your brad and answer any questions. If you have any additional questions or concerns, Dr Leon is usually in the office at the same time and will be available An appointment was probably scheduled when you signed-up for surgery in the office. If you have any questions call More detailed instructions as well as Frequently Asked Questions were provided in a folder by our office when you signed-up for surgery. Please review these instructions when you get home. If you have any further questions or concerns, please feel free to call the office at [phone] Pending Studies at Discharge: No Stand-Alone Forms: My [facility] Medications and DC Order Prescriptions: New oxycodone 5 mg Tablet 5 mg PO Q4H PRN (Reason: pain) Qty: 30 0RF Continued diclofenac sodium 1 % gel 2 g TOPICAL QID PRN (Reason: Pain) Qty: 300 3RF Symbicort 160-4.5 mcg/actuation HFA aerosol inhaler 2 puff INHALATION BID Qty: 10.2 5RF Rx Instructions: Has to be Symbicort Brand only for insurance (DME) Oxygen Home Liters Per Minute See Rx Instructions .MEDSUPPLY Qty: 1 0RF Rx Instructions: 2 L oxygen via nasal cannula nightly celecoxib [Celebrex] 200 mg capsule 200 mg PO BID Qty: 60 11RF mirtazapine 30 mg tablet 30 mg PO HS Qty: 30 11RF carvedilol 6.25 mg tablet 6.25 mg PO BID Qty: 60 11RF atorvastatin 40 mg tablet 40 mg PO HS Qty: 30 11RF montelukast 10 mg tablet 10 mg PO QPM Qty: 30 11RF pantoprazole [Protonix] 40 mg tablet,delayed release (DR/EC) 40 mg PO QAM Qty: 30 11RF albuterol sulfate [Ventolin HFA] 90 mcg/actuation HFA aerosol inhaler 2 puff INHALATION Q6H PRN (Reason: Shortness Of Breath) Qty: 18 11RF ketoconazole 2 % cream 1 applic topical BID PRN (Reason: Rash) meclizine 25 mg tablet 25 mg PO TID PRN (Reason: Dizziness) ipratropium-albuterol 0.5 mg-3 mg(2.5 mg base)/3 mL solution for nebulization 3 ml inhalation QID PRN (Reason: shortness of breath or wheezing) Qty: 2 buspirone 10 mg tablet 10 mg PO BID PRN (Reason: Anxiety) cyclobenzaprine 10 mg tablet 10 mg PO TID PRN (Reason: Muscle Spasm) Rx Instructions: TAKE 1 TABLET BY MOUTH 3 TIMES DAILY NEEDED lisinopril 20 mg tablet 20 mg PO QAM venlafaxine 150 mg capsule,extended release 24hr 150 mg PO QAM Rx Instructions: TAKE 1 CAPSULE BY MOUTH DAILY IN THE MORNING. spironolactone 25 mg tablet 25 mg PO QAM Rx Instructions: TAKE 1 TABLET BY MOUTH ONCE DAILY. gabapentin 300 mg capsule 900 mg PO BID Rx Instructions: TAKE 3 CAPSULES BY MOUTH TWICE DAILY. potassium chloride 20 mEq tablet extended release 20 meq PO QAM Vitamin D3 100 mcg (4,000 unit) Capsule 4,000 unit PO QAM Darline/Tumeric 1 gummy PO QAM Admission Data Admit Date/Time: 10/24/22 11:59 Attending Provider: Oscar Leon Admit Provider: Oscar Leon Primary Care Provider: Lashawn Servin
[2022-10-25] MEDS: carvediloL 6.25 MG TAB PO SCH (07:59)
[2022-10-25] MEDS: FLUTICASONE/VILANTEROL 200/25MCG 14 PUFFS/INHALER INH SCH (08:00)
[2022-10-25] MEDS ORDERED: dexAMETHasone 4 MG TAB PO SCH (08:00)
[2022-10-25] MEDS: DOCUSATE SODIUM 100 MG CAP PO SCH (08:00)
[2022-10-25] MEDS: GABAPENTIN 300 MG CAP PO SCH (08:01)
[2022-10-25] MEDS ORDERED: TURMERIC PO SCH (09:00)
[2022-10-25] MEDS ORDERED: VENLAFAXINE HCL XR 150 MG CAPXR PO SCH (09:00)
[2022-10-25] MEDS ORDERED: GINGER PO SCH (09:00)
[2022-10-25] MEDS ORDERED: MULTIVITAMIN TAB PO SCH (09:00)
[2022-10-25] MEDS ORDERED: lisinopril 20 MG TAB PO SCH (09:00)
[2022-10-25] MEDS ORDERED: SPIRONOLACTONE 25 MG TAB PO SCH (09:00)
[2022-10-25] MEDS ORDERED: CHOLECALCIFEROL 1,000 UNITS 25 MCG TAB PO SCH (09:00)
[2022-10-25] MEDS ORDERED: POTASSIUM CHLORIDE CRTAB 20 MEQ TABCR PO SCH (09:00)
[2022-10-25] MEDS ORDERED: PANTOprazole 40 MG TAB PO SCH (09:00)
== END 2022-10-25 11:05 | disposition home health service (06) ==
LOC: 3E 08:16 → ASU 08:16

== ENCOUNTER 2024-11-30 15:17 | Inpatient (IN) ==
--- NOTE | 2024-11-30 15:52 | Emergency Department Note ---
ED Visit Note I was consulted by the Advanced Practice Provider SARAH Lazar. I performed a substantive portion of the visit including all aspects of medical decision making. .
[2024-11-30] MEDS ORDERED: DAPTOMYCIN IV ONE (15:59)
--- NOTE | 2024-11-30 16:30 | Emergency Department Note ---
Impression & Plan Cellulitis of left lower extremity, Leg wound, left ED Provider Note CHIEF COMPLAINT: Bleeding from wound VAC, infection HISTORY OF PRESENTING ILLNESS: Patient is a 69-year-old female presents to the emergency department today with complaints of bleeding from the wound VAC and infection. Back in September 27, 2024 the patient was seen and evaluated here in the emergency department after her [employer] explorer rolled back onto her left thigh causing a significant injury. She had multiple images with no fractures. A few days after the injury she started to notice some pretty large blisters developing. She was reevaluated here in the emergency department and had the wound debrided. She then had the wound VAC placed and has been following with the wound clinic since. She did see the wound clinic on 11/27/2024 where they had drawn a line around an erythematous area that they were concerned for cellulitis. She was placed on Cipro at that time and has been taking it as prescribed. Today an hour prior to arrival she noticed a significant amount of blood being sucked from the wound VAC and within 30 minutes had to change the chamber. The erythematous area that was marked by the wound clinic has significantly expanded. Patient denies chest pain, sob, breathing difficulties, abdominal pain, headache, fevers/chills, blood in stool or urine, any recent illness, or any recent travel. REVIEW OF SYSTEMS: See HPI for pertinent positives and pertinent negatives. ALLERGIES: See below MEDICATIONS: See below PAST MEDICAL HISTORY: See below PHYSICAL EXAM: VITALS: Vitals are noted on the nurse's note and reviewed by myself. GENERAL: Non toxic, in no acute distress, non-diaphoretic. SKIN: Large area with the wound VAC present to the left thigh. The wound VAC is intact and draining a very small amount of Dr. Melvin like substance. There is an erythematous area surrounding the inferior area of the wound VAC that has extended out of the marked lines made by the wound clinic. Capillary refill <2 sec. EYES: PERRLA. EOMI. Conjunctivae without injection, sclerae without icterus. HEART: Regular rate and rhythm without murmurs gallops or rubs. LUNGS: Clear to auscultation bilaterally without wheezes, rales or rhonchi. No retractions or accessory muscle use. ABDOMEN: Positive bowel sounds x 4. Normal tympanic percussion. Soft, nontender to palpation. MUSCULOSKELETAL: Ambulatory with a steady gait. Range of motion intact to the left lower extremity. No gross musculoskeletal defects. NEURO: Sensation is intact. Patient was alert and oriented. No focal neurological deficits. DIFFERENTIAL DIAGNOSIS: Cellulitis, infected joint, injury to the leg, misplaced wound VAC, among others. ED COURSE AND MEDICAL DECISION MAKING: HISTORY FROM INDEPENDENT HISTORIAN: History was provided by the patient. INTERPRETATION OF LABS: I interpreted the labs with full lab results as below in the lab section of this note. Laboratory results pertinent to the emergent complaint are discussed in the MDM section below. The patient was advised to follow up with their PCP and/or specialist(s) for further outpatient monitoring and management of any abnormal results. CHRONIC MEDICAL/SOCIAL CONDITIONS AFFECTING CARE: No social concerns were identified as barriers to patients care. EXTERNAL RECORDS REVIEWED: I reviewed the patient's last wound visit note from 11/27/2024, as well as many inpatient wound images from multiple dates throughout the patient's chart for progression and treatment. I also reviewed the patient's infectious disease results from 11/18/2024. ESCALATION OF CARE CONSIDERED: I considered admission on this patient due to outpatient failure on Cipro and patients multiple complications with her wound. CONSULTATIONS: I had a meaningful discussion about this patient with Dr. Hoffman who agrees with my assessment and the treatment plan. I consulted with Dr. Byrd with the hospitalist who accepts the patient for admission. SUMMARY: I examined the patient for complaints of bleeding from her wound VAC, infection. A physical exam and history were performed. Nursing notes, EMR, and medication list were personally reviewed. CBC showed no leukocytosis or thrombocytopenia. Hemoglobin was stable at 11 which appears to be better than patient's baseline. CMP showed a BUN of 32, BUN/creatinine ratio 34.4, glucose 169, AST of 11, no other emergent findings. The patient declined any pain medication or antiemetics here in the emergency department today. She was given daptomycin and Rocephin prior to admission. I did consult with Dr. Byrd the hospitalist who accepts the patient for admission. DIAGNOSIS: Cellulitis, wound VAC in place TREATMENT PLAN/DISCHARGE INSTRUCTIONS: Admit to hospitalist services. The chart was completed utilizing Pegg'd voice recognition software.Grammatical errors, random word insertions, pronoun errors, and incomplete sentences are an occasional consequence of this system due to software limitations, ambient noise, and hardware issues.Any formal questions or concerns about the content, text, or information contained within the body of this dictation should be directly addressed to the physician for clarification. Past Med/Surg History Problem List (Updated 11/30/24 @ 20:03 by SARAH Hurtado) Morbid obesity Essential hypertension Type 2 diabetes mellitus Left leg cellulitis (Acute) Leg wound, left (Acute) Bleeding (Acute) Surgical wound, non healing (Acute) Osteopenia (Acute) Hyperlipidemia associated with type 2 diabetes mellitus Type 2 diabetes mellitus with hyperglycemia Obesity (Chronic) Hypothyroidism (Chronic) Crushing injury of left thigh, sequela (Acute) Wounds, multiple open, lower extremity (Acute) Cellulitis of left lower extremity (Acute) Restrictive lung disease (Chronic) MC (obstructive sleep apnea) (Chronic) Vitamin D deficiency (Chronic) Anxiety and depression (Chronic) Chronic low back pain (Chronic) Venous insufficiency (Chronic) Insomnia (Chronic) Chronic pain of left knee (Chronic) GERD (gastroesophageal reflux disease) (Chronic) Hypertension (Chronic) Medical History Acute kidney injury Hiatal hernia Cervical radiculopathy Herpes zoster Around 2020- no recent issues Migraine Congestive heart failure REMOTE-HX- STABLE AND CONTROLLED EF 60% on 2015 ECHO Pulmonary embolism ~2012- on AC x 1 year - then d/'edwardo - no issues since Surgical History Status post reverse total replacement of left shoulder (~10/2022) S/P debridement (10/15/24) Sharp debridement of left lower extremity wound - Ryan Emanuel, DO History of hip surgery evacuation of seroma and wound closure right hip 10/11/19 Dr. Leon History of open reduction and internal fixation (ORIF) procedure revision femoral stem, ORIF rigth lesser trochaner 10/03/19 Dr. Leon History of right hip replacement (~08/2019) History of esophagogastroduodenoscopy (EGD) History of total left hip replacement (~2017) Status post insertion of spinal cord stimulator Status post correction of deviated nasal septum History of tonsillectomy and adenoidectomy History of bilateral carpal tunnel release H/O foot surgery Previous back surgery S/P insertion of spinal cord stimulator 2/2 LBP/RADICULOPATHY; PATIENT ADVISED TO BRING REMOTE AM DOS (OR NOTIFIED) Family History Father Prostate cancer Diabetes Myocardial infarction Mother Myocardial infarction Family/Other Heart disease Hypertension Other Family history non-contributory No family history of adverse response to anesthesia Denies family history of Ovarian cancer Breast cancer Colorectal cancer Social History Smoking Status: Never smoker Second Hand Exposure: No; Do You Dip or Chew Tobacco: No; Hx Alcohol Use: Yes Alcohol type: wine Alcohol Intake Frequency: Monthly or Less Alcohol Intake Frequency Comment: one drink once a week or so Hx Substance Use: No Preferred Language: Armenian Communication Ability: Effective Visual Impairment: Limited Hearing Ability: Normal Panelbeater Required: No Beliefs That Will Affect Care: None marital status: Current Living Situation: Spouse current occupational status: disabled How many Children do You have: 0 Feels Safe at Home: Yes Childhood Exposure to Second-Hand Smoke: Yes Diet: regular caffeine: Yes (Coffee) during the past year weight has: remained stable Dental Care, Regularly: No Physical Activity Frequency: Daily Physical Activity Frequency Comment: Walking and daily housework/chores Seatbelt Use: always Sunscreen Use: Yes Do you think of yourself as: straight/heterosexual Sexual Activity: has been sexually active, but not for at least 12 months Gender Identity: Female Assistive Devices: Cane Allergies Allergies Allergy/AdvReac Type Severity Reaction Status Date / Time amoxicillin Allergy Mild RASH Verified 11/27/24 09:38 rofecoxib Allergy Unknown Unknown Verified 11/27/24 09:38 simvastatin AdvReac Intermediate Muscle Pain Verified 11/27/24 09:38 aspirin AdvReac Mild PER Verified 11/27/24 09:38 PATIENT, LISTED B/C SHE HAS ASTHMA-CAN USE W/O ISSUES NO metformin AdvReac Mild Diarrhea Verified 11/27/24 09:38 Home Meds Home Medications Medication Instructions Recorded Confirmed ipratropium 0.5 mg-albuterol 3 mg 3 ml inhalation QID PRN shortness 08/13/18 11/30/24 (2.5 mg base)/3 mL nebulization of breath or wheezing #2 mL soln ketoconazole 2 % topical cream 1 applic topical BID PRN Rash 06/23/20 11/30/24 potassium chloride 20 mEq 20 meq PO QAM 08/02/22 11/30/24 tablet,extended release cholecalciferol (vitamin D3) 50 100 mcg PO DAILY 10/07/24 11/30/24 mcg (2,000 unit) tablet (Vitamin D3) Previous Rx's Medication Instructions Recorded diclofenac sodium 1 % topical gel 2 g topical QID PRN Pain #300 grams 10/19/20 Oxygen Home #1 ea 06/29/21 mirtazapine 30 mg tablet 30 mg PO HS #30 tabs 04/15/24 buspirone 15 mg tablet 15 mg PO TID #90 tabs 05/13/24 celecoxib 200 mg capsule (Celebrex) 200 mg PO BID #60 caps 05/13/24 atorvastatin 40 mg tablet 40 mg PO HS #30 tabs 06/10/24 carvedilol 6.25 mg tablet 6.25 mg PO BID #60 tabs 06/10/24 lisinopril 20 mg tablet 20 mg PO QAM #30 tabs 06/10/24 montelukast 10 mg tablet 10 mg PO QPM #30 tabs 06/10/24 pantoprazole 40 mg tablet,delayed 40 mg PO QAM #30 tabs 06/10/24 release (Protonix) spironolactone 25 mg tablet 25 mg PO QAM #30 tabs 06/10/24 venlafaxine 150 mg 150 mg PO QAM #30 caps 06/10/24 capsule,extended release 24 hr albuterol sulfate 90 mcg/actuation 2 puff inhalation Q6H PRN 07/12/24 aerosol inhaler (Ventolin HFA) Shortness Of Breath #18 grams Symbicort 160 mcg-4.5 2 puff inhalation BID #10.2 grams 09/06/24 mcg/actuation HFA aerosol inhaler (budesonide-formoterol) blood sugar diagnostic (OneTouch #100 ea 10/08/24 Verio test strips) blood-glucose meter (OneTouch #1 ea 10/08/24 Verio Flex Meter) lancets 30 gauge (Onetouch Delica #100 ea 10/08/24 Safety Lancet) cyanocobalamin (vitamin B-12) 1,000 mcg PO DAILY #30 caps 08/07/25 1,000 mcg capsule levothyroxine 25 mcg tablet 25 mcg PO DAILYBB #30 tabs 10/17/24 (Synthroid) naloxone 0.4 mg/mL injection 0.4 mg intranasal Q5M PRN opioid 10/24/24 solution reversal 5 days #1 applicator empagliflozin 10 mg tablet 10 mg PO DAILY #30 tabs 11/05/24 (Jardiance) oxycodone 5 mg tablet 5 mg PO .COMPLEX pain #14 tabs 11/13/24 gabapentin 300 mg capsule 900 mg (3 x 300 mg) PO BID #180 11/14/24 caps ciprofloxacin HCl 500 mg tablet 500 mg PO q12h #28 tabs 11/27/24 Results & Data (ED) Vital Signs Vital Signs - 24 hr 11/30/24 15:07 11/30/24 15:07 11/30/24 15:07 Temperature 37.0 C Temperature Source Oral Pulse Rate 95 H Pulse Rate [Left Brachial] 95 H Pulse Rate [Right Finger] Pulse Rhythm Regular Pulse Rhythm [Left Brachial] Regular Pulse Strength Normal Pulse Strength [Left Brachial] Normal Respiratory Rate 18 18 Respiratory Effort / Characteristics Non-Labored Non-Labored Respiratory Depth Normal Normal Respiratory Pattern Regular Regular Blood Pressure 150/69 H Blood Pressure [Right Arm] 150/69 H Blood Pressure Mean 96 Blood Pressure Mean [Right Arm] 96 Blood Pressure Position Lying Blood Pressure Position [Right Arm] Lying Pulse Oximetry 98 98 Oxygen Delivery Method Room Air Room Air Room Air Sepsis Recent Fever Within 48 Hours No Sepsis New/Unexplained Change in Mental Status No Sepsis Action Taken by Nursing No Action Required 11/30/24 17:07 11/30/24 18:45 Temperature Temperature Source Pulse Rate Pulse Rate [Left Brachial] 85 Pulse Rate [Right Finger] 82 Pulse Rhythm Pulse Rhythm [Left Brachial] Regular Pulse Strength Pulse Strength [Left Brachial] Normal Respiratory Rate 19 18 Respiratory Effort / Characteristics Non-Labored Non-Labored Spontaneous Respiratory Depth Normal Normal Respiratory Pattern Regular Blood Pressure Blood Pressure [Right Arm] 98/59 L 134/70 Blood Pressure Mean Blood Pressure Mean [Right Arm] 72 91 Blood Pressure Position Blood Pressure Position [Right Arm] Lying Pulse Oximetry 98 95 Oxygen Delivery Method Room Air Room Air Sepsis Recent Fever Within 48 Hours Sepsis New/Unexplained Change in Mental Status Sepsis Action Taken by Nursing Laboratory Data 11/30/24 19:25 11/30/24 16:27 Lab Results 11/30/24 11/30/24 Range/Units 16:27 19:25 WBC 8.74 (4.8-10.8) K/ul RBC 3.82 L (4.20-5.40) M/uL Hgb 11.0 L 11.0 L (12.0-16.0) g/dl Hct 36.4 L 36.1 L (37.0-47.0) % MCV 95.3 (80.0-100.0) fL MCH 28.8 (25.0-34.0) pg MCHC 30.2 L (32.0-36.0) g/dL RDW Std Deviation 48.0 H (36.4-46.3) fL RDW Coeff of Jamie 13.8 (11.5-14.5) % Plt Count 387 (130-400) K/uL MPV 9.5 (9.4-12.4) fL Immature Gran % (Auto) 0.2 % Neut % (Auto) 66.7 % Lymph % (Auto) 22.7 % Churchill % (Auto) 8.2 % Eos % (Auto) 1.6 % Baso % (Auto) 0.6 % Neut # (Auto) 5.83 (1.40-6.50) K/uL Lymph # (Auto) 1.98 (1.20-3.40) K/uL Churchill # (Auto) 0.72 H (0.11-0.59) K/uL Eos # (Auto) 0.14 (0.00-0.50) K/uL Baso # (Auto) 0.05 (0.00-0.20) K/uL Immature Gran # (Auto) 0.02 (0.01-0.20) K/uL Sodium 138 (136-145) mmol/L Potassium 3.9 (3.5-5.1) mmol/L Chloride 102 (98-107) mmol/L Carbon Dioxide 30 (21-32) mmol/L Anion Gap 6 (3-11) BUN 32 H (6-23) mg/dl Creatinine 0.93 (0.6-1.2) mg/dl Est Cr Clr Drug Dosing 67.3 ml/min eGFR 65.71 BUN/Creatinine Ratio 34.4 H (10-20) Glucose 169 H (70-99(Fasting)) mg/dl Calcium 9.2 (8.6-10.3) mg/dl Total Bilirubin 0.3 (0.2-1.0) mg/dl AST 11 L (13-39) U/L ALT 11 (7-52) U/L Alkaline Phosphatase 71 (34-104) U/L Total Protein 6.7 (6.0-8.3) gm/dl Albumin 3.5 (3.4-5.0) gm/dl Globulin 3.2 (2.5-4.0) gm/dl Albumin/Globulin Ratio 1.1 (0.9-2) Administered Medications Discontinued Medications Ceftriaxone Sodium (Rocephin) 2,000 mg in 50 mls @ 100 mls/hr IV NOW STA Stop: 11/30/24 16:16 Last Infusion: 11/30/24 17:04 Dose: Infused Documented By: Admin: 11/30/24 16:34 Dose: 100 mls/hr Documented By: LISA Daptomycin 500 mg/ Syringe 10 mls @ 5 mls/min IV NOW ONE; Protocol Stop: 11/30/24 17:31 Last Admin: 11/30/24 18:38 Dose: 5 mls/min Documented By: PETERSON Discharge Plan Visit Data Chief Complaint: Bleeding Stated Complaint: BLEEDING, WOUND VAC ED Provider: Elio Hoffman ED Midlevel Provider: Vandana Monreal Discharge Problem: Cellulitis of left lower extremity, Leg wound, left Patient Disposition: Admitted As Inpatient Condition: Good Forms Stand Alone Forms: My [facility] [employer] Prescriptions Prescriptions: No Action ciprofloxacin HCl 500 mg tablet 500 mg PO q12h Qty: 28 0RF diclofenac sodium 1 % gel 2 g TOPICAL QID PRN (Reason: Pain) Qty: 300 3RF Patient Comments: Unable to verify OTC meds at this date/time. (DME) Oxygen Home Liters Per Minute See Rx Instructions .MEDSUPPLY Qty: 1 0RF Rx Instructions: 2 L oxygen via nasal cannula nightly mirtazapine 30 mg tablet 30 mg PO HS Qty: 30 11RF celecoxib [Celebrex] 200 mg capsule 200 mg PO BID Qty: 60 11RF Hold Instructions: Resume on 11/06/24. Discuss continued use with your PCP buspirone 15 mg tablet 15 mg PO TID Qty: 90 5RF carvedilol 6.25 mg tablet 6.25 mg PO BID Qty: 60 11RF lisinopril 20 mg tablet 20 mg PO QAM Qty: 30 11RF spironolactone 25 mg tablet 25 mg PO QAM Qty: 30 11RF Rx Instructions: TAKE 1 TABLET BY MOUTH ONCE DAILY. pantoprazole [Protonix] 40 mg tablet,delayed release (DR/EC) 40 mg PO QAM Qty: 30 11RF venlafaxine 150 mg capsule,extended release 24hr 150 mg PO QAM Qty: 30 11RF Rx Instructions: TAKE 1 CAPSULE BY MOUTH DAILY IN THE MORNING. montelukast 10 mg tablet 10 mg PO QPM Qty: 30 11RF atorvastatin 40 mg tablet 40 mg PO HS Qty: 30 11RF albuterol sulfate [Ventolin HFA] 90 mcg/actuation HFA aerosol inhaler 2 puff INHALATION Q6H PRN (Reason: Shortness Of Breath) Qty: 18 6RF budesonide-formoterol [Symbicort] 160-4.5 mcg/actuation HFA aerosol inhaler 2 puff INHALATION BID Qty: 10.2 5RF Rx Instructions: Has to be Symbicort Brand only for insurance Jardiance 10 mg tablet 10 mg PO DAILY Qty: 30 5RF oxycodone 5 mg tablet 5 mg PO .COMPLEX Qty: 14 0RF Rx Instructions: 5 mg orally; take 1-2 tablets before physical therapy gabapentin 300 mg capsule 900 mg PO BID Qty: 180 11RF Rx Instructions: TAKE 3 CAPSULES BY MOUTH TWICE DAILY. ketoconazole 2 % cream 1 applic topical BID PRN (Reason: Rash) ipratropium-albuterol 0.5 mg-3 mg(2.5 mg base)/3 mL solution for nebulization 3 ml inhalation QID PRN (Reason: shortness of breath or wheezing) Qty: 2 potassium chloride 20 mEq tablet extended release 20 meq PO QAM Hold Instructions: Resume on 11/06/24. Discuss continued use with PCP Patient Comments: Unable to verify, not on file w/ pharmacy. Original Directions: 10meq by mouth once daily - 10/07/24 cholecalciferol (vitamin D3) [Vitamin D3] 50 mcg (2,000 unit) Tablet 100 mcg PO DAILY Patient Comments: Unable to verify OTC meds at this date/time. (DME) OneTouch Verio test strips Strip See Rx Instructions .Route Qty: 100 0RF Rx Instructions: check blood sugar twice a day (DME) blood-glucose meter [OneTouch Verio Flex meter] Misc See Rx Instructions .Route Qty: 1 0RF Rx Instructions: check blood sugar twice a day (DME) lancets [Onetouch Delica Safety Lancet] 30 gauge misc See Rx Instructions .Route Qty: 100 0RF Rx Instructions: check blood sugar twice a day levothyroxine [Synthroid] 25 mcg Tablet 25 mcg PO DAILYBB Qty: 30 0RF cyanocobalamin (vitamin B-12) 1,000 mcg capsule 1,000 mcg PO DAILY Qty: 30 0RF naloxone 0.4 mg/mL Solution 0.4 mg intranasal Q5M PRN (Reason: opioid reversal) 5 Days Qty: 1 1RF Referrals Referrals: Lashawn Servin CRNP [Primary Care Provider] - Discharge Problem: Leg wound, left Qualifiers: Encounter type: subsequent encounter Qualified Code(s): S81.802D - Unspecified open wound, left lower leg, subsequent encounter
[2024-11-30] MEDS: cefTRIAXone SODIUM 2,000 MG/50 ML BAG IV STA (16:34)
[2024-11-30 17:01] LABS: Hematocrit (blood only) 36.4 % (37.0-47.0); Hemoglobin 11.0 g/dl (12.0-16.0); Immature Granulocytes # (auto) 0.02 K/uL (0.01-0.20); Immature Granulocytes % (auto) 0.2 %; Mean Corpuscular Hemoglobin 28.8 pg (25.0-34.0); Mean Corpuscular Volume 95.3 fL (80.0-100.0); Platelet Count 387 K/uL (130-400); RDW Standard Deviation 48.0 fL (36.4-46.3); Red Blood Count 3.82 M/uL (4.20-5.40); White Blood Count 8.74 K/ul (4.8-10.8)
[2024-11-30 17:18] LABS: Alanine Aminotransferase 11.0 U/L (7-52); Albumin Globulin Ratio 1.1 (0.9-2); Albumin Level 3.5 gm/dl (3.4-5.0); Alkaline Phosphatase 71.0 U/L (34-104); Anion Gap 6.0 (3-11); Bilirubin,Total 0.3 mg/dl (0.2-1.0); Blood Urea Nitrogen 32.0 mg/dl (6-23); Calcium 9.2 mg/dl (8.6-10.3); Carbon Dioxide 30.0 mmol/L (21-32); Chloride 102.0 mmol/L (98-107); Creatinine Clr Calc Pharmacy 67.3 ml/min; Globulin 3.2 gm/dl (2.5-4.0); Glucose 169.0 mg/dl (70-99(Fasting)); Potassium 3.9 mmol/L (3.5-5.1); Sodium 138.0 mmol/L (136-145); Total Protein 6.7 gm/dl (6.0-8.3)
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
[2024-11-30] MEDS: DAPTOmycin 500 MG in SYRINGE 0 ML IV ONE (18:38)
[2024-11-30 19:50] LABS: Hematocrit (blood only) 36.1 % (37.0-47.0); Hemoglobin 11.0 g/dl (12.0-16.0)
[2024-11-30 21:37] LABS: Hematocrit (blood only) 34.2 % (37.0-47.0); Hemoglobin 10.5 g/dl (12.0-16.0)
[2024-11-30] MEDS ORDERED: GLUCAGON FOR INJ 1 MG VIAL SQ PRN (21:54)
[2024-11-30] MEDS ORDERED: GLUCOSE 10 TAB/TUBE PO PRN (21:54)
[2024-11-30] MEDS ORDERED: ONDANSETRON INJ 2 MG/ML 2 ML VIAL IV PRN (21:54)
[2024-11-30] MEDS ORDERED: ALBUT/IPRATROP 3MG/0.5MG NEB 3 ML VIAL INH PRN (21:54)
[2024-11-30] MEDS ORDERED: CARBOHYDRATES FOR HYPOGLYCEMIA PO PRN (21:54)
[2024-11-30] MEDS ORDERED: DEXTROSE 50% 50 ML SYRINGE IV PRN (21:54)
[2024-11-30] MEDS ORDERED: GLUCOSE 40% GEL 15 GM TUBE PO PRN (21:54)
[2024-11-30] MEDS ORDERED: ALBUTEROL HFA 8 GM INHALER INH PRN (21:54)
[2024-11-30] MEDS: INSULIN ASPART PER UNIT CHARGE SC SCH (22:09)
[2024-11-30] MEDS: MONTELUKAST SODIUM 10 MG TABLET PO SCH (22:22)
[2024-11-30] MEDS: CeleBREX 200 MG CAP PO SCH (22:22)
[2024-11-30] MEDS: MIRTAZAPINE TAB 15 MG TAB PO SCH (22:22)
[2024-11-30] MEDS: ATORVASTATIN 40 MG TAB PO SCH (22:22)
[2024-11-30] MEDS: GABAPENTIN 300 MG CAP PO SCH (22:22)
[2024-11-30] MEDS: busPIRone 15 MG TAB PO SCH (22:22)
[2024-11-30] MEDS: CIPROFLOXACIN / D5W 400 MG/200 ML BAG IV SCH (22:22)
[2024-12-01] MEDS: LEVOTHYROXINE SODIUM 25 MCG TABLET PO SCH (05:28)
[2024-12-01 06:04] LABS: Hematocrit (blood only) 35.7 % (37.0-47.0); Hemoglobin 11.0 g/dl (12.0-16.0); Immature Granulocytes # (auto) 0.01 K/uL (0.01-0.20); Immature Granulocytes % (auto) 0.1 %; Mean Corpuscular Hemoglobin 29.6 pg (25.0-34.0); Mean Corpuscular Volume 96.0 fL (80.0-100.0); Platelet Count 379 K/uL (130-400); RDW Standard Deviation 48.3 fL (36.4-46.3); Red Blood Count 3.72 M/uL (4.20-5.40); White Blood Count 7.42 K/ul (4.8-10.8)
[2024-12-01 06:21] LABS: Anion Gap 5.0 (3-11); Blood Urea Nitrogen 22.0 mg/dl (6-23); Calcium 9.1 mg/dl (8.6-10.3); Carbon Dioxide 30.0 mmol/L (21-32); Chloride 104.0 mmol/L (98-107); Creatinine Clr Calc Pharmacy 94.4 ml/min; Glucose 141.0 mg/dl (70-99(Fasting)); Potassium 4.1 mmol/L (3.5-5.1); Sodium 139.0 mmol/L (136-145)
[2024-12-01] MEDS: CHOLECALCIFEROL 25 MCG (1000 UNITS) TAB PO SCH (08:04)
[2024-12-01] MEDS: SPIRONOLACTONE 25 MG TAB PO SCH (08:05)
[2024-12-01] MEDS: VENLAFAXINE HCL XR 150 MG CAPXR PO SCH (08:05)
[2024-12-01] MEDS: FLUTICASONE/VILANTEROL 100/25MCG 14 PUFFS/INHALER INH SCH (08:05)
[2024-12-01] MEDS: POTASSIUM CHLORIDE CRTAB 20 MEQ TABCR PO SCH (08:10)
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
[2024-12-01] MEDS: DAPTOmycin 700 MG in SYRINGE 0 ML IV SCH (18:17)
[2024-12-02 06:04] LABS: Hematocrit (blood only) 35.8 % (37.0-47.0); Hemoglobin 11.2 g/dl (12.0-16.0); Immature Granulocytes # (auto) 0.02 K/uL (0.01-0.20); Immature Granulocytes % (auto) 0.3 %; Mean Corpuscular Hemoglobin 29.9 pg (25.0-34.0); Mean Corpuscular Volume 95.7 fL (80.0-100.0); Platelet Count 383 K/uL (130-400); RDW Standard Deviation 48.9 fL (36.4-46.3); Red Blood Count 3.74 M/uL (4.20-5.40); White Blood Count 7.67 K/ul (4.8-10.8)
[2024-12-02 06:38] LABS: Anion Gap 6.0 (3-11); Blood Urea Nitrogen 15.0 mg/dl (6-23); Calcium 9.3 mg/dl (8.6-10.3); Carbon Dioxide 28.0 mmol/L (21-32); Chloride 106.0 mmol/L (98-107); Creatinine Clr Calc Pharmacy 84.3 ml/min; Glucose 146.0 mg/dl (70-99(Fasting)); Potassium 4.4 mmol/L (3.5-5.1); Sodium 140.0 mmol/L (136-145)
[2024-12-02] MEDS: ACETAMINOPHEN 325 MG TAB PO PRN (09:14)
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
[2024-12-02] MEDS: OPTIRAY 320 125ml IV ONE (13:43)
--- NOTE | 2024-12-02 13:59 | CT Scan Report ---
CT femur LT w con, CT knee LT w con CLINICAL HISTORY: Left thigh wound; ? distal purulent abscess COMPARISON STUDY: X-ray of 10/07/2024 FINDINGS: There is an open wound at the soft tissues at the level of the anterior medial distal femur and left knee. There is subcutaneous soft tissue thickening suggesting phlegmon or granulation tissu e, but no focal drainable fluid collection or abscess seen. There is a mild joint effusion at the lef t knee. There is severe osteoarthritis at the left knee. Left hip prosthesis is present. No fracture seen at the left femur or left knee. No evidence of osteomyelitis. IMPRESSION: Open wound as described with no evidence of drainable soft tissue abscess. ACT 112: Negative or not required by law. Electronically signed by: Rock Arauz M.D. 12/02/2024 1:58 PM
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
[2024-12-02] MEDS: DAPTOmycin 500 MG in SYRINGE 0 ML IV SCH (17:22)
[2024-12-02] MEDS: metroNIDAZOLE 500 MG TAB PO SCH (20:03)
[2024-12-02] MEDS: CIPROFLOXACIN 250 MG TAB PO SCH (20:03)
[2024-12-03 06:56] LABS: Hematocrit (blood only) 34.2 % (37.0-47.0); Hemoglobin 10.7 g/dl (12.0-16.0); Immature Granulocytes # (auto) 0.01 K/uL (0.01-0.20); Immature Granulocytes % (auto) 0.2 %; Mean Corpuscular Hemoglobin 30.0 pg (25.0-34.0); Mean Corpuscular Volume 95.8 fL (80.0-100.0); Platelet Count 354 K/uL (130-400); RDW Standard Deviation 48.3 fL (36.4-46.3); Red Blood Count 3.57 M/uL (4.20-5.40); White Blood Count 6.32 K/ul (4.8-10.8)
[2024-12-03 07:11] LABS: Anion Gap 5.0 (3-11); Blood Urea Nitrogen 20.0 mg/dl (6-23); Calcium 9.4 mg/dl (8.6-10.3); Carbon Dioxide 29.0 mmol/L (21-32); Chloride 105.0 mmol/L (98-107); Creatine Kinase 52.0 U/L (26-192); Creatinine Clr Calc Pharmacy 82.3 ml/min; Glucose 140.0 mg/dl (70-99(Fasting)); Potassium 4.7 mmol/L (3.5-5.1); Sodium 139.0 mmol/L (136-145)
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
[2024-12-03 15:55] VITALS: RESP 18
[2024-12-04 06:52] LABS: Hematocrit (blood only) 35.0 % (37.0-47.0); Hemoglobin 11.0 g/dl (12.0-16.0); Mean Corpuscular Hemoglobin 30.3 pg (25.0-34.0); Mean Corpuscular Volume 96.4 fL (80.0-100.0); Platelet Count 343 K/uL (130-400); RDW Standard Deviation 48.2 fL (36.4-46.3); Red Blood Count 3.63 M/uL (4.20-5.40); White Blood Count 5.00 K/ul (4.8-10.8)
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
[2024-12-04] MEDS: ACETAMINOPHEN 325 MG TAB PO STA (15:31)
[2024-12-04 15:47] VITALS: BP 140/78; PULSE 85; TEMP 97.9; O2SAT 93
[2024-12-04] MEDS: DAPTOmycin 500 MG in SYRINGE 0 ML IV ONE (17:07)
== END 2024-12-04 18:44 | disposition home health service (06) | DRG 605 ==
LOC: SUATTDRO → ED 15:17 → 3E 18:14 → SUATTDRO 18:14 → 3E 21:10